=== PATIENT | male | born 1960 | race Caucasian/White ===

== ENCOUNTER 2022-01-12 12:48 | Day surgery (SDC) | payer OTHER, SELFPAY ==
[2022-01-12] VITALS (17 sets, daily range): BP systolic 111–144; BP diastolic 78–97; PULSE 70–88; RESP 16–18; TEMP 36.4–37.2; O2SAT 94–100; BMI 28.8
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
--- NOTE | 2022-01-12 13:31 | CRLHL7_ITS ---
For Patients: As a result of the Century Cures Act, medical imaging exams and procedure reports are released immediately into your electronic medical record. You may view this report before your referring provider. If you have questions, please contact your health care provider. INDICATION: Neck pain TECHNIQUE: CT cervical spine without contrast. COMPARISON: None FINDINGS: Vertebrae: Alignment is normal. There are no fractures or suspicious bony lesions. Discs and facet joints: Minimal discogenic spurring within the cervical spine. Degenerative facet arthropathy on the right at C3-4. Extraspinal findings: Right apical pulmonary nodule may be present measuring 5 millimeters. No apical pneumothorax. Secretions are present within the posterior oropharynx. Asymmetric fullness of the right palatine tonsil with mass effect upon the airway which is not narrowed. The right tonsil measures 2.4 x 2.8 cm. The fossa of Rosenmuller is maintained, however. No evidence of epiglottitis. Upper limits of normal cervical lymph nodes are present bilaterally. IMPRESSION: No cervical spine fracture. Possible 5 millimeter right apical nodule. Asymmetric fullness of the right palatine tonsil with tonsillar enlargement, indeterminate. Please note that all CT scans at this facility use dose modulation, iterative reconstruction, and/or weight-based dosing when appropriate to reduce radiation dose to as low as reasonably achievable. Dictated by Ta Henderson MD @ 01/12/2022 2:54:21 PM (Electronically Signed)
--- NOTE | 2022-01-12 13:31 | CRLHL7_ITS ---
For Patients: As a result of the Century Cures Act, medical imaging exams and procedure reports are released immediately into your electronic medical record. You may view this report before your referring provider. If you have questions, please contact your health care provider. INDICATION: THROAT PAIN R/O ABCESS Indication: Throat pain. Evaluate for abscess. Technique: CT of the neck. Coronal/sagittal reconstruction images. 98 cc of Isovue 370 IV. Comparison: None. Findings: There is no abnormal contrast enhancement within the posterior fossa or included supratentorial brain. Vessels of the [place] and dural venous sinuses enhance normally. There is enlargement of the right tonsil, with a suspected peritonsillar abscess on the right, image 31, series 3. This demonstrates peripheral rim enhancement, and measures 1.6 x 2.4 cm. There is mild effacement and fat stranding in the right parapharyngeal fat. There is deviation of the nasopharynx to the contralateral side. ENT consultation is advised. Mild edema/soft tissue thickening of the danger space. The epiglottis appears normal, image 28, series 5. The parotid space, carotid space, infratemporal fossa, suede cleaner space, and perivertebral space are within normal limits. Evaluation of the lung apices demonstrates no acute airspace disease. 7 millimeter pulmonary nodule at the right lung apex on image 72, series 3, which may be followed per Fleischner society guidelines. No endobronchial mass or peripheral reticulation. No honeycomb. Nonenlarged axillary lymph nodes. Superior mediastinum is normal. No thyroid mass. No thickening of the platysma muscle. No findings for sialoadenitis. The floor of the mouth appears intact. The bone windows demonstrate no suspicious bone lesions. There is no mastoid effusion. Paranasal sinuses are normal, with the exception of minimal mucosal thickening in the maxillary antra. No retrobulbar hematoma or mass. Impression: 1. Imaging findings are consistent with a right peritonsillar abscess, with mild mass effect/fat stranding in the right parapharyngeal fat. 2. ENT consultation is suggested. 3. 7 millimeter pulmonary nodule in the right upper lobe, apical segment. Follow-up is suggested per Fleischner society guidelines. 4. Superior mediastinum is within normal limits. 5. Report called to Dr. Barton, MINE, 01/12/22, 1521 hours. Dictated by Agusto Acharya MD @ 01/12/2022 3:23:17 PM Please note that all CT scans at this facility use dose modulation, iterative reconstruction, and/or weight-based dosing when appropriate to reduce radiation dose to as low as reasonably achievable. Dictated by: Agusto Acharya MD @ 01/12/2022 15:23:41 (Electronically Signed)
[2022-01-12 13:52] LABS: Basophils Absolute Auto 0.03 K/uL (0.00-0.30); Basophils Percent Auto 0.3 % (0.0-3.0); Eosinophils Absolute Auto 0.05 K/uL (0.00-0.50); Eosinophils Percent Auto 0.5 % (0.0-7.0); Hematocrit 44.6 % (37.0-53.0); Hemoglobin* 14.8 gm/dL (13.5-17.5); Immature Granulocytes Abs Auto 0.01 K/uL (0.00-0.30); Lymphocytes Percent Auto 13.4 % (20-44); Mean Corpuscular HGB Conc 33 gm/dL (32-36); Mean Corpuscular Hemoglobin 31 pg (26-34); Mean Corpuscular Volume 95 fL (80-100); Monocytes Percent Auto 12.3 % (0.0-11.0); Neutrophils Percent Auto 73.4 % (42.0-72.0); Platelet Count* 270 K/uL (140-440); Red Blood Count 4.72 m/uL (4.30-5.90)
[2022-01-12 14:01] LABS: Slide Review Reflex No
[2022-01-12 14:05] LABS: Albumin* 4.2 g/dL (3.3-5.0); Chloride* 100 mmol/L (96-114); Sodium* 136 mmol/L (135-149)
[2022-01-12 14:07] LABS: Creatinine* 0.8 mg/dL (0.5-1.5); Est. Creatinine Clearance* 78.07; Estimated Glomerular Filt Rate 99 ml/min
[2022-01-12 14:08] LABS: Alanine Aminotransferase* 24 U/L (4-50); Alkaline Phosphatase* 85 U/L (40-150); Aspartate Amino Transferase* 28 U/L (12-35); Blood Urea Nitrogen* 12 mg/dL (7-30); Carbon Dioxide* 28 mmol/L (20-32); Glucose* 116 mg/dL (60-115); Total Protein* 7.3 g/dL (6.0-8.3)
[2022-01-12] MEDS: 0.9 % SODIUM CHLORIDE 1000 ml 1,000 ML IV (14:08)
[2022-01-12] MEDS: ERTAPENEM 1 GM in 0.9 % SODIUM CHLORIDE Mini-bag 100 ML IVPB (14:08)
[2022-01-12 14:09] LABS: Calcium* 8.9 mg/dL (8.4-10.6)
[2022-01-12] MEDS: ONDANSETRON 2 MG/ML inj 4 MG IVP (14:09)
[2022-01-12] MEDS: MORPHINE 4 MG/ML INJ IVP (14:09)
[2022-01-12 14:11] LABS: C Reactive Protein* 5.6 mg/dL (0.5-1.0)
--- OUTSIDE RECORDS SUMMARY | 2022-01-12 14:22 | XMS_ITS | Clinical Summary ---
:1960 Author Organization [facility] [place] [address] Care Team Providers Name Role Phone Stoney Jo MD Primary Care Provider [phone] Allergies Active Allergy Reactions Severity Noted Date Comments Bee Venom Protein (Honey Anaphylaxis High 06/04/2015 Bee) Penicillins Edema 07/26/2013 Swelling of lip s and tongue Cerner Listed r eactions Medications Medication Sig Dispensed Refills Start Date End Date Status losartan (COZAAR) 50 mg Take 50 mg by 0 09/30/2021 Active tablet mouth once daily. Electrical Bone Growth For home use. For 0 Active StimulatorIndications: use after S/P lumbar fusion surgery. Active Problems Problem Noted Date Right kidney stone 06/17/2020 Paroxysmal atrial fibrillation Encounters Date Type Specialty Care Team Description 10/17/2021 Office Visit Benny Dalton, Consult (Lumbar pain ) 10/17/2021 Travel from Last 3 Months Family History Medical History Relation Name Comments Hypertension Brother Lung cancer Brother Hypertension Father Diabetes Sister Relation Name Status Comments Brother Father Sister Social History Tobacco Use Types Packs/Day Years Used Date Never Smoker Smokeless Tobacco: Never Used Alcohol Use Standard Drinks/Week Comments Yes 0 (1 standard drink = 0.6 oz pure alcoho l) few beers per week Alcohol Habits Answer Date Recorded How often do you have a drink containing alcohol? Not asked How many drinks containing alcohol do you have on a Not aske d typical day when you are drinking? How often do you have six or more drinks on one Not asked occasion? Comment: few beers per week 01/12/2020 Sex Assigned at Date Recorded Not on file Obstetrics History Last Filed Vital Signs Vital Sign Reading Time Taken Comments Blood Pressure 150/85 06/18/2020 8:37 AM JOY OPERATOR HELPER Pulse 69 06/18/2020 8:37 AM JOY OPERATOR HELPER Temperature 36.4 ??C (97.5 ??F) 06/18/2020 8:37 AM JOY OPERATOR HELPER Respiratory Rate 16 06/18/2020 8:37 AM JOY OPERATOR HELPER Oxygen Saturation 99% 06/18/2020 8:37 AM JOY OPERATOR HELPER Inhaled Oxygen Concentration - - Weight 93 kg (205 lb) 10/17/2021 9:21 AM CDT Height 175.3 cm (5' 9) 10/17/2021 9:21 AM CDT Body Mass Index 30.27 10/17/2021 9:21 AM CDT Plan of Treatment Upcoming Encounters Date Type Specialty Care Team Description 01/17/2022 Office Visit Sylvester Newell MD [address] [facility] [address] [place], [place] [id number] (Wo rk) Health Maintenance Due Date Last Done Comments Tdap 1969 Depression screening for age 12+ 1970 Hepatitis C screening for age 0306/26/1976 18-79 Tetanus booster 1978 Colonoscopy through age 75 06/27/2003 Lipids for age 45-75 06/27/2003 Zoster (shingles) series for age 0306/26/2008 50+ (1 of 2) COVID-19 vaccine series (3 - 12/27/2020 07/27/2020, 021 Booster for Moderna series) Influenza for age 50-64 12/12/2021 BMI (ht and wt on same day) for 10/17/2022 10/17/2021, 07/0 04/2021, age 18+ 08/16/2021, Additional history exists Results Not on filefrom Last 3 Months Insurance Payer Benefit Plan / Subscriber ID Effective Dates Phone Addre ss Type Group MEDICA MEDICA APPLAUSE [id number] 2020-Present [address] [address] [place] [phone] (Home) [place] [id number] [place] [facility]/Steven Self [phone] [id number] (Home) [place] [id number] Advance Directives Latest Code Status on File Code Status Date Activated Date Inactivated Comments Full Code 06/17/2020 8:23 PM 06/18/2020 12:49 PM Code Status Discussion: Discussed Per Existing Order Full Code 01/12/2020 11:42 AM 01/13/2020 12:03 PM Discussed when consent for ablation obtained Code Status Discussion: Not Discussed Care Teams Capping Machine Operator Relationship Specialty Start Date End Date Stoney Jo MD PCP - General Family Practice 01/03/[address] [place] [address]
--- NOTE | 2022-01-12 15:52 | CRLHL7_ITS ---
For Patients: As a result of the Cures Act, medical imaging exams and procedure reports are released immediately into your electronic medical record. You may view this report before your referring provider. If you have questions, please contact your health care provider. INDICATION: Sore throat, peritonsillar abscess TECHNIQUE: Chest 1 view. COMPARISON: Chest x-ray 07/12/2019 FINDINGS: The heart is stable in size. The pulmonary vasculature is within normal limits. Lungs are clear. IMPRESSION: No acute process. Dictated by Deepti Mathew MD @ 01/12/2022 4:42:22 PM Dictated by: Deepti Mathew MD @ 01/12/2022 16:42:33 (Electronically Signed)
[2022-01-12] MEDS: HYDROmorphone 0.5 mg/0.5 ml inj IVP (16:24)
[2022-01-12 16:34] LABS: SARS PCR* Negative SARS-CoV-2 (Negative)
[2022-01-12] MEDS: LACTATED RINGERS 1000 ML 1,000 ML 100 ML IV (16:43)
--- NOTE | 2022-01-12 17:04 | W.PM.ENTCN ---
HPI- ENT Consult Date of Consult Time Seen by Provider: 16:25 Date Seen: 01/12/22 Patient: [facility] Patient Consult date: 01/12/22 Requesting Physician: Other Primary Care Provider: Not a Local Provider Consult Narrative Reason for consult: Right peritonsillar abscess Narrative: Virgilio Jackson is a 61 year old male 5 day history of sore throat. Develops markedly increase in pain overnight. No significant trismus. Does have odynophagia. No airway difficulty Review of Systems Narrative: For general skin neuro respiratory peripheral vascular pulmonary cardiac within normal limits PFSH PFS Medical History (Updated 01/12/22 @ 17:06 by Alfredo Castillo MD) Peritonsillar abscess Social History Smoking Status: Never smoker How often do you have a drink containing alcohol: monthly or less How often do you have six or more drinks on one occasion: Never AUDIT-C Alcohol total score: 1 Non-prescribed substance use: denies use Meds Home Medications and Allergies Home Medications Medication Instructions Recorded Confirmed Type epinephrine 0.3 mg/0.3 mL 0.3 mg IM PRN 01/12/22 01/12/22 History injection, auto-injector losartan 50 mg tablet 50 mg PO DAILY 01/12/22 01/12/22 History naproxen sodium 220 mg capsule 220 mg PO BID PRN 01/12/22 01/12/22 History (Aleve) Allergies Allergy/AdvReac Type Severity Reaction Status Date / Time bee venom protein (honey bee) Allergy Severe Anaphylaxis Verified 01/12/22 13:14 Penicillins Allergy Severe Anaphylaxis Verified 01/12/22 13:13 Exam Narrative: Exam Narrative: General skin neuro respiratory gait peripheral vascular vocal quality skin of the neck are negative he has no trismus. Significant bulge right tonsil with uvular cellulitis. Uvula is approximately 4 times normal size. Hypopharynx and larynx are easily visualized. Const: Vital Signs, click to edit/add: Vital Signs - 24 hr 01/12/22 13:11 01/12/22 16:08 Temperature 97.6 F 98.3 F Pulse Rate [Pulse Oximeter] 81 76 Respiratory Rate 18 16 Blood Pressure [Ri ght Upper Arm] 126/78 143/86 H Pulse Oximetry 98 94 Oxygen Delivery Me thod Room Air Room Air ENT-CN: Result Labs Labs: Short CBC 10/02/22 Range/Units 13:44 WBC 9.20 (4.50-11.00) K/uL Hgb 14.8 (13.5-17.5) gm/dL Hct 44.6 (37.0-53.0) % Plt Count 270 (140-440) K/uL BMP 01/12/22 13:44 Sodium 136 Potassium 4.0 Chloride 100 Carbon Dioxide 28 BUN 12 Creatinine 0.8 Glucose 116 H Calcium 8.9 Liver Function 01/12/22 Range/Units 13:44 Total Bilirubin 1.0 (0.1-1.5) mg/dL AST 28 (12-35) U/L ALT 24 (4-50) U/L Alkaline Phosphatase 85 (40-150) U/L Albumin 4.2 (3.3-5.0) g/dL Assessment and Plan Assessment and plan (1) Peritonsillar abscess: Status: Acute Plan Right intra tonsillar versus peritonsillar abscess. This is not clear from the scan. The arm hypopharynx shows early edema but no obstruction of the airway. He is somewhat tender on the lateral neck. Discussed options with imaging given the hypopharyngeal edema I would favor going the operating room for drainage. Risks including anesthesia bleeding recurrence failure to achieve desired results injury to adjacent structures etc. were all reviewed. He understands and informed consent was obtained and permit was signed.
--- NOTE | 2022-01-12 17:07 | W.PM.ENTPROC ---
Procedure Note Date of procedure: 01/12/22 Procedure: Preoperative diagnosis right peritonsillar abscess versus right intra tonsillar abscess, hypopharyngeal edema, uvular cellulitis Postoperative diagnosis abscess appeared to be intra tonsillar and all of above Procedure incision and drainage right intra tonsillar abscess with exploration of the right peritonsillar space an amputation of the lower quarter of the uvula to facilitate drainage Under general endotracheal anesthesia which was achieved without difficulty the patient was prepped and draped in usual fashion. The McIvor mouth gag was inserted the tongue retracted forward. The needlepoint cautery was used to make an incision over the most edematous part portion of the soft palate. Dissection was carried down to the peritonsillar space and no abscess was encountered. I then drained into the tonsil from behind and was able to express about 5 mL of purulent drainage. This cavity was then irrigated copiously. I placed pressure to the hypopharyngeal some edema and no further purulence was noted. The cavity was irrigated again. Bleeding was controlled with Coblation. The uvula is markedly hypertrophic slight amputated the lower quarter to facilitate decreased edema. The patient procedure well was taken recovery in satisfactory condition. Blood loss during procedure was less than 25 mL Surgeon: Alfredo Castillo MD
--- NOTE | 2022-01-12 17:22 | W.ANESCHARGE ---
Anesthesia Charges Start Date/Time Anesthesia Start Date: 01/12/22 Anesthesia Start Time: 16:43 Stop Date/Time Anesthesia Stop Date: 01/12/22 Anesthesia Stop Time: 17:15 Summary Emergency: Yes
--- NOTE | 2022-01-12 21:57 | PC.NURSE ---
DC note: Pt tolerates PO fluids and ice chips with no c/o nausea, pain 0-1/10, no drainage noticed by patient. He is up independently to the bathroom, is voiding, denies lightheadedness or dizziness,ice to operating site. Pt DC home with spouse at 2150, ambulatory
== END 2022-01-12 21:50 | disposition home or self-care (01) ==
LOC: ED 16:09 → SS 16:22 → MEDSURG 20:46
PROVIDERS: Emergency Provider Family Medicine; Visit Provider Otolaryngology
PROC: 0C9PXZZ Drainage of Tonsils, External Approach (ICD-10-PCS; CPT 42700; principal; 2022-01-12 16:15)
DX: J36 Peritonsillar abscess (principal); K13.79 Other lesions of oral mucosa; I10 Essential (primary) hypertension; M54.50 Low back pain, unspecified
CPT/HCPCS: 42700; 42140; 00170; 36415; 70491; 71045; 72125; 80053; 85025; 86140; 87040; 87077; 87186; 87205; 87635; 93005; 99140; 99285; 99291; J0330; J1100; J1170; J1335; J2250; J2270; J2405; J2704; J3010; J7030; J7120; Q9967

== ENCOUNTER 2022-12-17 07:14 | Day surgery (SDC) | payer OTHER, SELFPAY ==
[2022-12-17] VITALS (14 sets, daily range): BP systolic 113–144; BP diastolic 73–107; PULSE 61–827; RESP 14–161; TEMP 36.4–36.9; O2SAT 93–98; BMI 31.4
--- OUTSIDE RECORDS SUMMARY | 2022-12-17 07:19 | XMS_ITS | Continuity of Care Document ---
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 Please contact the source practice for further details. Medications Medication Instructions Dosage Effective Dates (start - stop) Status Comments losartan 50 mg tablet take 1 tablet by oral route every day 50 MG - Active PROBIOTIC (unknown strength) take 1 capsule by oral route every day Not Available - Active Centrum Silver Men 300 mcg-600 mcg-300 mcg tablet - Active Aleve 220 mg tablet take 2 tablet by oral route daily - Active EpiPen 0.3 mg/0.3 mL (1:1,000) IM Injector as needed for bee stings - Active Procedures Procedure Date Colonoscopy Flex; W/bx 1/mx Level Iv-surg Path Gross/micro Offic/outpt E&m New Mod-hi Colorectal Ca Screen Hi Risk I 07 Advance Directives Directive Yes / No Effective Date File Name No Information Encounters Encounter Description Practice Location Reason(s) For Visit Diagnoses Date Provider Providers Copied on Encounter [facility], [address] [address], [place], [id number], [place] tel:[phone] [facility] No Information 2 Tonio Durand. [address], [place], [id number] , [place]. tel: [phone] [facility], [address] [address], [place], [id number], [place] tel:[phone] [facility] GI Symptoms or Concerns (chief complaint) Noninfective gastroenteritis and colitis, unspecifiedAbdom inal distension (gaseous)Diarrhe a, unspecifiedDiarr hea, unspecifiedAbdom inal distension (gaseous) 2 Rigo Roman. [address], [facility] [address], [place], [id number] , [place]. tel: [phone] Rob Gordon MD. tel:[phone] erring Provider: Referral Self. Offic/outpt E&m New Mod-hi [facility], [address] [address], [place], [id number], [place] tel:[phone] [facility] GI Symptoms or Concerns (chief complaint) Chronic diarrheaBloating 2 Rigo Roman. [address], [facility] [address], [facility] [place], [place], [address] , [place]. tel: [phone] Rob Gordon MD. tel:[phone] erring Provider: Referral Self. [facility], [address] [address], [place], [id number], [place] tel:[phone] [facility] No Information 2 Paola Rangel. [address], [place], [place], [id number] , [place]. tel: [phone] [facility], [address] [address], [place], [place], [id number], [place] tel:[phone] [facility] Colon Cancer ScreeningFamily Hx GI Tract Cancer 7 Tram Chappell. [address], [address], [place], [place], [id number] , . [phone] Referring Provider: Ta Leroy MD I, [address] [facility] [address], [place], [address] . tel:[phone] Family History Family Member Type Diagnosis Age At Onset Mother Problem (finding) Pancreatitis Brother Problem (finding) Colon polyps Brother Problem (finding) Cancer, bladder Brother Problem (finding) malignant tumor of rect um Immunizations Vaccine Date Status Comments SARS-COV-2 (COVID-19) vaccin e, mRNA, spike protein, LNP, preservative free, 100 mcg/0.5mL dose or 50 mcg/0.25mL dose administered Note: [facility] bi -directional interface ; Source: Other Registry SARS-COV-2 (COVID-19) vaccin e, mRNA, spike protein, LNP, preservative free, 100 mcg or 50 mcg dose administered Note: [facility] bi-direct ional interface ; Source: Other Registry SARS-COV-2 (COVID-19) vaccin e, mRNA, spike protein, LNP, preservative free, 100 mcg/0.5mL dose or 50 mcg/0.25mL dose administered Note: [facility] bi -directional interface ; Source: Other Registry SARS-COV-2 (COVID-19) vaccin e, mRNA, spike protein, LNP, preservative free, 100 mcg or 50 mcg dose administered Note: [facility] bi-direct ional interface ; Source: Other Registry SARS-COV-2 (COVID-19) vaccin e, mRNA, spike protein, LNP, preservative free, 100 mcg/0.5mL dose or 50 mcg/0.25mL dose administered Note: [facility] bi -directional interface ; Source: Other Registry SARS-COV-2 (COVID-19) vaccin e, mRNA, spike protein, LNP, preservative free, 100 mcg or 50 mcg dose administered Note: [facility] bi-direct ional interface ; Source: Other Registry tetanus toxoid, reduced diphtheria toxoid, and acellular pertussis vaccine, adsorbed administered Note: [facility] b i-directional interface ; Source: Other Registry Afluria Qd administered Note: [facility] bi-directional interface ; Source: Other Registry tetanus toxoid, reduced diphtheria toxoid, and acellular pertussis vaccine, adsorbed administered Note: [facility] b i-directional interface ; Source: Other Registry Payers Payer name Insurance type Covered alliance party ID Authorregina quiles(s) Jakob WANB CI [id number] Social History Type Description Quantity Date Captured Comments Sex Male Smoking Status No Information Chief Complaint And Reason For Visit No Information Reason For Referral Reason For Referral No Information Plan Of Treatment Date Type Action Status Referral Ordered: Colonoscopy Appointment date/timeframe: 09/12/2021 ordered History Of Present Illness Encounter Date Complaint History Of Prese nt Illness GI Symptoms or Concerns GI Symptoms or Concerns 60-year- old man with history of chronic back pain parentheses takes 2 pills of Aleve daily for many years ), who presents for about 2 years of bloating and diarrhea. He describes anywhere between 4-10 loose bowel movements per day. Recently diarrhea has been better parentheses about 4 bowel movements daily, usually in the morning). He denies blood in his stool or black stool. He has abdominal bloating and discomfort generally, which is better after bowel movements. About a year ago in June [address] scan that showed fluid-filled loops of small bowel, which was mild and nonspecific, but differential stated as possible developing ileus or bowel obstruction versus enteritis. It was thought perhaps that he had adhesions from a distant history of appendectomy. Stool PCR in was for infection. Labs on 06/29/2020 included CBC, CRP, lipase, BMP, all of which were normal. Last colonoscopy is stated as being 5 years ago in primary care note. He report Functional Status Date Functional Assessmen t No Information Instructions Date Instruction Additional Infor rachel Colon Cancer Prevention Related to Abdominal distension (gaseous) 1. Chronic diarrhea and bloating. - schedule colonoscopy with TI intubation and random colon biopsies. - if colonoscopy is unrevealing, consider testing for celiac disease and possibly treating for irritable bowel syndrome. - we will schedule follow-up visit in 2-3 months, but this can be cancelled if no longer needed depending on results of colonoscopy. Related to Chronic diarrhea Assessments Type Assessment Date No Information Patient Care Teams Name Effective Dates (start - stop) Status Members No Information
--- OUTSIDE RECORDS SUMMARY | 2022-12-17 07:19 | XMS_ITS | Continuity of Care Document ---
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 Role Phone Payam Sung MD Unavailable Unavailab le Allergies, Adverse Reactions, Alerts Substance Reaction Status Criticality Penicillins Active No Information Medications Medication Instructions Dosage Effective Dates (start - stop) Status Comments ALEVE (unknown strength) Not Available - Active Procedures Procedure Date Office/Outpatient Visit,[facility] 2014 X-Ray Exam Of Lower Spine, Bending Advance Directives Directive Yes / No Effective Date File Name No Information Encounters Encounter Description Practice Location Reason(s) For Visit Diagnoses Date Provider Providers Copied on Encounter [facility], [address], [place], [place], [id number] , [place] tel: [phone] [facility] No Information 6 Ana Lilia sommers [facility], [address] [place] [address], [address], [place], [place], [id number] , [place]. tel: [phone] Office/Outpa tient Visit,[facility], [facility], [address], [place], [place], [id number] , [place] tel: [phone] [facility] OverweightEssentia l (primary) hypertensionSpinal stenosis of lumbosacral regionSpondylolist hesis of lumbar region 5 Ana Lilia Miranda er. [facility], [address] [place] [address], [address], [place], [place], [address] , [place]. tel: [phone] Referring Provider: Agusto Simpson, [facility] [address], [place], [address]. tel:[phone] Family History Family Member Type Diagnosis Age At Onset No Information Payers Payer name Insurance type Covered democrat ID Vinay quiles(s) [id number] [facility] [id number] Social History Type Description Quantity Date Captured Comments Alcohol Use Details Unknown Caffeine Use Details Unknown Tobacco Use Status No Information Smoking Status No Information Sex Male Chief Complaint And Reason For Visit No Information Reason For Referral Reason For Referral No Information Plan Of Treatment Date Type Action Status Future Order: Radiology Order F/ E Lumbar (F/ELumb), Ordered on: Ordered History Of Present Illness Encounter Date Complaint History Of Prese nt Illness No Information Functional Status Date Functional Assessmen t No Information Instructions Date Instruction Additional Infor mation Weight Management Related to Ove rweight Weight management: R efer to Referral to General Practitioner timeframe: 1 Month. Related to Overweight Exercise education Related to Un specified Essential Hypertension Refer to Referral to General Practitioner timeframe: 1 Month. Related to Unspecified Essential Hypertension Assessments Type Assessment Date No Information Patient Care Teams Name Effective Dates (start - stop) Status Members No Information
[2022-12-17] MEDS: LACTATED RINGERS 1000 ML 1,000 ML 100 ML IV ×2 (08:05→11:00)
--- NOTE | 2022-12-17 08:05 | SUR.PREOP ---
TIME?OUT:?1000 PT/RN/MDA?VERIFICATION?OF?SURGICAL?SITE,?PROCEDURE,?AND?CONSENT OBTAINED?PRIOR?TO?INVASIVE?PROCEDURE.
[2022-12-17] MEDS: fentaNYL 100 MCG/2 ML inj IVP (08:35)
[2022-12-17] MEDS: MIDAZOLAM HCL 1 MG/ML inj IVP (08:35)
--- NOTE | 2022-12-17 08:47 | W.PM.NB ---
Nerve Block Nerve Block Time Seen by Provider: 08:40 Date Seen: 12/17/22 Type of block requested by surgeon for post-operative analgesia: supraclavicular Side: left Time out performed: Yes Verification of patient name: Yes Verification of date of : Yes Site marking: site marked Name of person performing procedure: Christiano Continuous monitoring Was continuous monitoring of O2 sat, B/P, cafeteria monitor, recorded every 15 minutes?: Yes Procedure Checklist: sterile prep, needles and gloves Ultrasound guided. Images saved: Yes Medications given in 5ml increments after negative aspiration: Ropivicaine %: 0.5 mL: 20 Needle gauge: 22 Decadron (mg): 10 Precedex (mcg): 25 Patient tolerated procedure well: Yes Block Charges Block Charge (with Pro Fee): Brachial Plexus Use of Ultrasound Machine for Block: Yes- US Guidance/pain block
--- NOTE | 2022-12-17 08:48 | W.ANESCHARGE ---
Anesthesia Charges Start Date/Time Anesthesia Start Date: 12/17/22 Anesthesia Start Time: 08:59 Stop Date/Time Anesthesia Stop Date: 12/17/22 Anesthesia Stop Time: 11:41
--- NOTE | 2022-12-17 08:51 | SUR.PREOP ---
TIME?OUT:?0830 PT/RN/MDA?VERIFICATION?OF?SURGICAL?SITE,?PROCEDURE,?AND?CONSENT OBTAINED?PRIOR?TO?INVASIVE?PROCEDURE.
[2022-12-17] MEDS: CEFAZOLIN 2 GM in 0.9 % SODIUM CHLORIDE Mini-bag 100 ML IVPB (09:05)
[2022-12-17] MEDS: EPINEPHrine 1 MG in SODIUM CHLORIDE IRRIG SOLUTION 3,000 ML 3001 MG IRRIGATION ×6 (09:45→11:22)
--- NOTE | 2022-12-17 11:38 | W.ANESCHARGE ---
Anesthesia Charges Start Date/Time Anesthesia Start Date: 12/17/22 Anesthesia Start Time: 08:59 Stop Date/Time Anesthesia Stop Date: 12/17/22 Anesthesia Stop Time: 11:41
--- NOTE | 2022-12-17 13:02 | SUR.PHASEII ---
Patient has complained of soreness under his left armpit. It is very red and almost looks like a diaper rash... I cleaned under his armpit with warm water to clean off any Chloraprep that may have caused the problem. I dried it well and ABD applied. stated she has A&D ointment that she could apply while doing ROM later today. Assured them we would call tomorrow to see how he was doing.
--- NOTE | 2022-12-17 13:09 | PM.ORPRC ---
Procedure Note Date of procedure: 12/17/22 Procedure: PREOPERATIVE DIAGNOSES: 1. Left shoulder rotator cuff tear -full thickness supraspinatus, upper border subscapularis, and anterior portion infraspinatus 2. Left shoulder AC degenerative joint disease, primary, moderate -severe 3. Left shoulder degenerative labral fraying tearing 4. Left shoulder subacromial impingement syndrome. POSTOPERATIVE DIAGNOSES: 1. Left shoulder rotator cuff tear -full thickness supraspinatus, upper border subscapularis, and anterior portion infraspinatus 2. Left shoulder AC degenerative joint disease, primary, moderate -severe 3. Left shoulder degenerative labral fraying tearing 4. Left shoulder subacromial impingement syndrome. NAME OF OPERATION: 1. Left shoulder arthroscopic rotator cuff repair - Large tear including entire supraspinatus, anterior infraspinatus, and upper subscapularis 2. Left shoulder arthroscopic distal clavicle excision 3. Left shoulder arthroscopic limited glenohumeral debridement 4. Left shoulder arthroscopic bursectomy, subacromial decompression/partial acromioplasty. SURGEON: Herbert Melendez MD HYDRAULIC TESTER: Jason Bowie. Of note, a skilled assistant food service director was critical for this case to aide in patient positioning, suture manipulation, arm positioning, instrument positioning, and closure. ANESTHESIA: General plus preoperative supraclavicular block. EBL: 25 mL IMPLANTS: Arthrex 4.75 mm BioComposite SwiveLock suture anchor ( x1-subscap); 2.6 mm FiberTak RC ( x1); 5.5 mm BioComposite corkscrew suture anchor ( x1); 5.5 mm BioComposite SwiveLock suture anchor ( x3). COMPLICATIONS: None evident INDICATIONS: The patient is a pleasant, 62-year old male who has experienced left shoulder pain that has been increasing in recent time. Physical exam and imaging were consistent with a rotator cuff tear. Given their findings, as well as the weakness and pain, and inadequate response to nonoperative management, recommendation was made for surgery. FINDINGS: Exam under anesthesia revealed stable shoulder with excellent range of motion. The diagnostic arthroscopy revealed full-thickness supraspinatus rotator cuff tear, upper border subscapularis tear, and anterior portion infraspinatus tear with retraction to the medial humeral head and delaminated tissue warranting marginal convergence of the delaminated portion separate from the remaining rotator. The Subscapularis tendon was torn from its upper border as noted. The long head of the biceps tendon was intact. The labrum was degeneratively frayed in the anterior and superior aspects. No loose bodies were identified within the pouch or subscapularis recess. PROCEDURE: Following a thorough discussion of risks, benefits, and alternatives, consent was obtained and the left shoulder was marked. The patient was brought to the operating room and placed supine on the operating table. Induction of anesthesia was completed after preoperative supraclavicular block was administered in preop holding. Appropriate time out was performed identifying proper patient, site, and procedure. 2 g IV Ancef was administered within 1 hour of incision preoperatively. The left upper extremity was prepped and draped in the appropriate sterile fashion using ChloraPrep prep. This was after the patient was positioned in the beach chair with their head in neutral alignment and all bony prominences well padded. The shoulder was insufflated with 20mL of normal saline via an 18g spinal needle from a posterior approach. An 11 blade skin incision allowed a blunt trochar to be inserted and diagnostic arthroscopy to be performed with the findings as noted above. An anterior portal was established with an outside in technique. This allowed the probe to be inserted and confirm the diagnostic arthroscopic findings. The shaver was then inserted and allowed debridement of the anterior and superior labrum. Following this, the upper border subscapularis was repaired after debriding the lesser tuberosity with the shaver and [place] cautery. Subscapularis was captured in horizontal mattress fashion with a fiber tape suture. The tails were brought to a single anchor in the lesser tuberosity with excellent reapproximation of the subscap tendon and good excursion/tension. Thereafter, the subacromial space was entered. Here, a complete bursectomy and partial acromioplasty/subacromial decompression was performed with a combination of radiofrequency ablator, the shaver, and a 5.5 mm bur. Additionally, distal clavicle excision was performed with the bur. 8 mm of distal clavicle was resected based on the width of our bur. Further inspection of the supraspinatus and infraspinatus rotator cuff was performed. This identified the tear as noted above. The margins of the tear were debrided, and the greater tuberosity was debrided with a combination of the apollo cautery, shaver, and bur on reverse setting. After gentle decortication, a speed bridge configuration with a medial kaylee was engaged. 2 medial anchors were placed and the sutures were passed with a fiber link. The eyelet suture tails were then retrieved and tied and cinched down for the medial kaylee purpose. of note, the anterior medial anchor did pull out 1 tensioning the medial kaylee. This required us to cut the sutures as the lateral head artery and placed and secured. We were still able to maintain the posterior medial anchor and 2 lateral anchors and therefore half of the rotator cuff repair was still intact. However, we did after remove the anteromedial anchor which was a 2.6 mm FiberTak RC. then, this was replaced with a 5.5 mm BioComposite corkscrew suture anchor. The tails were passed independently and tied. The tails then brought to it separate lateral row anchor along with 1 marginal convergence sutures to again create a broad footprint against the greater tuberosity. Excellent reapproximation of the tissue to the greater tuberosity was achieved with broad footprint compression. Prior to anchor m48/m60 tank driver removal, the eyelet sutures were tugged on for each anchor and found that the anchor had excellent stability within the bone. The shoulder was placed through range of motion and found to be stable. The rotator cuff was re-probed and found to be stable. Instruments were removed. Excess fluid was drained, closure performed with 4-0 Monocryl and Steri-Strips. Dressings were applied. Sling was applied. The patient was awoken from anesthesia and transferred to the PACU in stable condition. A skilled assistant food service director was critical for this case to aid in patient positioning, limb positioning, skill to manipulate arthroscopic instruments and camera, suture management, patient safety, and closure. PLAN: 1. Elbow, forearm, wrist and digit range of motion of operative extremity as tolerated. 2. Encouraged ice. 3. Oxycodone for pain as needed. 4. Sling at all times except for ROM and showering. 5. Follow up with PA visit in 1-2 weeks for wound check. Initiate physical therapy following that visit for passive range of motion. Initiate active assisted range of motion at 6 weeks due to the large tear size. May do pendulums now.
--- NOTE | 2022-12-17 13:15 | W.PM.H&PU ---
History & Physical Update History & Physical Update H&P Reviewed and patient assessed: No changes noted
== END 2022-12-17 13:17 | disposition home or self-care (01) ==
PROVIDERS: PCP Family Medicine; Visit Provider Orthopaedic Surgery Sports Medicine
PROC: (CPT 29805; principal; 2022-12-17 09:15)
DX: M75.122 Complete rotator cuff tear or rupture of left shoulder, not specified as traumatic (principal); M19.012 Primary osteoarthritis, left shoulder; S43.432A Superior glenoid labrum lesion of left shoulder, initial encounter; M75.42 Impingement syndrome of left shoulder; G89.18 Other acute postprocedural pain
CPT/HCPCS: 29827; 29826; 29824; 29822; 01630; 64415; 76942; C1713; J0171; J0690; J1100; J2250; J2795; J3010; J7120; L3670

== ENCOUNTER 2023-01-15 11:06 | Outpatient (CLI) | payer OTHER, SELFPAY ==
--- OUTSIDE RECORDS SUMMARY | 2023-01-15 11:11 | XMS_ITS | Continuity of Care Document ---
Author Name Unknown Organization [facility] Address [address] [place] [address] Phone Care Team Providers Care Scenic Artist Name Role Phone Payam Sung MD Unavailable Unavailab le Allergies, Adverse Reactions, Alerts Substance Reaction Status Criticality Penicillins Active No Information Medications Medication Instructions Dosage Effective Dates (start - stop) Status Comments ALEVE (unknown strength) Not Available - Active Procedures Procedure Date Office/Outpatient [place] [facility] [place]am Of Lower Spine, Bending Advance Directives Directive Yes / No Effective Date File Name No Information Encounters Encounter Description Practice Location Reason(s) For Visit Diagnoses Date Provider Providers Copied on Encounter [facility], [address], [place], [place], [id number] , [place] tel: [phone] [facility] No Information 6 Ana Lilia sommers [facility], [address] [place] [address], [address], [place], [place], [id number] , [place]. tel: [phone] Office/Outpa [place]ient Visit,[facility], [facility], [address], [place], [place], [id number] , [place] tel: [phone] [facility] OverweightEssentia l (primary) hypertensionSpinal stenosis of lumbosacral regionSpondylolist hesis of lumbar region 5 Ana Lilia Miranda er. [facility], [address] [place] [address], [address], [place], [place], [id number] , [place]. tel: [phone] Referring Provider: Agusto Simpson, [facility] [address] [facility], [place], [address]. tel:[phone] Family History Family Member Type Diagnosis Age At Onset No Information Payers Payer name Insurance type Covered constitution party ID Vinay quiles(s) BCBS [id number] [facility] [id number] Social History Type Description Quantity Date Captured [...]
--- NOTE | 2023-01-15 11:15 | CRLHL7_ITS ---
For Patients: As a result of the Century Cures Act, medical imaging exams and procedure reports are released immediately into your electronic medical record. You may view this report before your referring provider. If you have questions, please contact your health care provider. Indication: Left hip pain Comparison: 01/08/2023 Procedure : Informed consent was obtained. The site was marked. Time-out was performed. The skin of the left hip was cleansed with ChloraPrep. A sterile drape was placed. 8 cc of 1 percent lidocaine was administered for superficial anesthesia. Subsequently a 22 gauge spinal needle was introduced into the left hip joint under intermittent fluoroscopic guidance. Injection of 7 cc 1 percent lidocaine and 2 cc 40 milligram per cc Depo-Medrol then performed. The needle was removed and hemostasis achieved with direct pressure. A dressing was placed. The patient tolerated the procedure well without immediate complication. Total fluoroscopy time 15 seconds. Impression: Successful fluoroscopically guided left hip with 80 milligrams of Depo-Medrol. Dictated by Ta Henderson MD @ 01/15/2023 12:02:01 PM (Electronically Signed)
== END 2023-01-15 11:07 | disposition home or self-care (01) ==
LOC: RAD 11:06
PROVIDERS: PCP Family Medicine; Visit Provider Orthopaedic Surgery Sports Medicine
DX: M16.12 Unilateral primary osteoarthritis, left hip (principal); M25.552 Pain in left hip
CPT/HCPCS: 20610; 77002; Q9966

== ENCOUNTER 2023-03-30 10:43 | Outpatient (CLI) | payer OTHER, SELFPAY ==
--- OUTSIDE RECORDS SUMMARY | 2023-03-30 10:48 | XMS_ITS | Continuity of Care Document ---
Author Name Unknown Organization [facility] Address [address] [place] [address] Phone Care Team Providers Care Global Head [employer] Name Role Phone Payam Sung MD Unavailable Unavailab le Allergies, Adverse Reactions, Alerts Substance Reaction Status Criticality Penicillins Active No Information Medications Medication Instructions Dosage Effective Dates (start - stop) Status Comments ALEVE (unknown strength) Not Available - Active Procedures Procedure Date Office/Outpatient Visit,[facility] [facility] [place]-Ray Exam Of Lower Spine, Bending Advance Directives Directive Yes / No Effective Date File Name No Information Encounters Encounter Description Practice Location Reason(s) For Visit Diagnoses Date Provider Providers Copied on Encounter [facility], [address], [place], [place], [id number] , [place] tel: [phone] [facility] No Information 6 Ana Lilia sommers [facility], [address] [place] [address], [address], [place], [place], [id number] , [place]. tel: [phone] Office/Outpa tient Visit,[facility], [facility], [address], [place], [place], [id number] , [place] tel: [phone] [facility] OverweightEssentia l (primary) hypertensionSpinal stenosis of lumbosacral regionSpondylolist hesis of lumbar region 5 Ana Lilia Miranda er. [facility], [address] [place] [address], [address], [place], [place], [id number] , [place]. tel:[phone] Referring Provider: Agusto Simpson, [facility] [address] [facility], [place], [address]. tel:[phone] Family History Family Member Type Diagnosis Age At Onset No Information Payers Payer name Insurance type Covered alliance party ID Vinay quiles(s) BCBS [id number] [facility] [id number] Social History Type Description Quantity Date Captured [...]
--- NOTE | 2023-03-30 11:00 | CRLHL7_ITS ---
For Patients: As a result of the Century Cures Act, medical imaging exams and procedure reports are released immediately into your electronic medical record. You may view this report before your referring provider. If you have questions, please contact your health care provider. INDICATION: Hip pain. Injection for pain relief. PROCEDURE: Informed consent was obtained. Benefits and risks were discussed. The patient agreed to proceed. A time-out was performed to verify correct patient and procedure. Utilizing sterile technique and 1% lidocaine for local anesthetic, a 22-gauge needle was advanced into the left hip joint under fluoroscopic guidance without difficulty. Approximately 5 cc of nonionic Omnipaque 240 was instilled demonstrating the needle tip within the joint space. Subsequently, a mixture of 2 cc methylprednisolone 40 mg/mL and 4 cc 1% Xylocaine were injected. No immediate complications. 1 minute fluoroscopy time. Preprocedure pain threshold: 6/10. Immediate postprocedure pain threshold: 1/10. IMPRESSION: Technically successful fluoroscopically guided left hip injection for pain relief. Dictated by Michael Bravo MD @ 03/30/2023 2:31:33 PM (Electronically Signed)
== END 2023-03-30 10:44 | disposition home or self-care (01) ==
LOC: RAD 10:44
PROVIDERS: PCP Family Medicine; Visit Provider Orthopaedic Surgery Sports Medicine
DX: M16.12 Unilateral primary osteoarthritis, left hip (principal)
CPT/HCPCS: 20610; 77002; J1030; Q9966

== ENCOUNTER 2023-07-29 08:57 | Outpatient (CLI) | payer MEDICARE, BC, SELFPAY ==
--- OUTSIDE RECORDS SUMMARY | 2023-07-29 09:07 | XMS_ITS | Encounter Summary ---
Author Name Unknown Organization [facility] Address [address] [place] [address] Care Team Providers Care Earth Science Teacher Name Role Phone Clinic, No Primary Primary Care Provider Unavail able Clinic, No Primary Unavailable Unavailable Reason for Visit * Reason Comments Follow up F/U CT RAYUS 05/06/23 - POST OP / Ant fusion L5-S1, HWR L3-5, PSF L4-S1 with instL3-PelvisDOS 10-20-2022 W/ SMS Encounter Details Date Type Department Care Team (Late st Contact Info) Description 05/07/2023 1:30 PM GROUND CREWMAN AIRCRAFT SUPPORT Office Visit [facility] (an affiliate of [facility]) [address] [place] [address] Julien Madera, AMIE [address] [place] [address] Lumbar radiculopathy (Primary Dx) Social History Tobacco Use Types Packs/Day Years Used Date Smoking Tobacco: Never Smokeless Tobacco: Never Tobacco Cessation:Counseling Given: Not Answered Alcohol Use Standard Drinks/Week Comments Yes 0 (1 standard drink = 0.6 oz pur e alcohol) beer socially Sex and Gender Information Value Date Recorded Sex Assigned at Not on file Gender Identity Not on file Sexual Orientation Not on file documented as of this encounter Last Filed Vital Signs Vital Sign Reading Time Taken Comments Blood Pressure - - Pulse - - Temperature - - Respiratory Rate - - Oxygen Saturation - - Inhaled Oxygen Concentration - - Weight 95.3 kg (210 lb) 05/07/2023 1:56 PM GROUND CREWMAN AIRCRAFT SUPPORT Height 175.3 cm (5' 9) 05/07/2023 1:56 PM GROUND CREWMAN AIRCRAFT SUPPORT Body Mass Index 31.01 05/07/2023 1:56 PM GROUND CREWMAN AIRCRAFT SUPPORT documented in this encounter Progress Notes * Santy, Julien BedoyaAMIE - 05/07/2023 1:30 PM CST DATE OF SERVICE: 05/07/23 CHIEF COMPLAINT: low back pain HPI: iVrgilio Jackson is a pleasant 62 y.o. male here today for evaluation for the above stated issues. During his previous visit on 04/30/23 with myself, the patient presented approximately 6 months statuspost Anterior Fusion L5-S1, Posterior Fusion L4-S1 with Instrumentation L3-Pelvis, Hardware RemovalL3-5 (DOS:10/20/22) with Dr. Dalton. He reports definite improvement in his presurgical lower extremity pain. However he still dealing with lower back pain related to activities going from the sitting to standing position is still quite painful laying supine and rotating can be quite painful. This pain is different than the pain he was dealing with prior to surgery. Today, the patient presents approximately 6 months status post Anterior Fusion L5-S1, Posterior Fusion L4-S1 with Instrumentation L3-Pelvis, Hardware Removal L3-5 (DOS:10/20/22) with Dr. Dalton. Hereports he still with some pain related to his activities. He questions results of his CT scan.. REVIEW OF SYSTEMS: I have reviewed the last complete 10 point Review of Systems with the patient and any changes in findings are listed as part of today's visit. All other systems are negative. The patient's Past Medical/Surgical/Family/Social history have been reviewed and verified with the patient. The patient's current medications have been reviewed and verified with the patient. Current Outpatient Medications on File Prior to Visit Medication Sig Dispense Refill acetaminophen (TYLENOL) 500 mg oral tablet Take 2 tablets (1,000 mg) by mouth once daily. calcium carbonate (TUMS) 200 mg calcium (500 mg) oral chew tab Chew 1 tablet (500 mg) twice a day with breakfast and dinner. 180 tablet 2 Calcium Citrate 200 mg (950 mg) oral Tab Take 1 tablet by oral route 2 times every day. cholecalciferol, vitamin D3, (VITAMIN D3 ORAL) Take 5,000 Int'l Units/day by mouth once daily. EPINEPHrine (EPIPEN) 0.3 mg/0.3 mL Injection auto-injector ONE INJECTION DIRECTED FOR ANAPHYLAXIS losartan (COZAAR) 50 mg oral tablet Take 1 tablet (50 mg) by mouth Daily. magnesium 250 mg oral Tab Take 1 tablet (250 mg) by mouth twice a day. Miscellaneous Medical Supply Orthofix BGS for use following spine surgery 1 each 0 VITAMIN D2 1,250 mcg (50,000 unit) oral capsule TAKE ONE TABLET BY MOUTH ONCE WEEKLY No current facility-administered medications on file prior to visit. PHYSICAL EXAM: @VSR@ General: Patient in NAD; alert and oriented x4/4; appears stated age. HENT: Head normocephalic/atraumatic, hearing grossly intact bilaterally. Eyes: Grossly EOMI, clear sclera. Skin: Shows good hydration and turgor. Neck: Supple, trachea is midline. Respiratory: Breathing unlabored. Gait: Patient walks with a well-balanced gait. Range of Motion: Limited range of motion lumbar spine Extremity ROM: Normal active range of motion in bilateral hips, knees, ankles, shoulders, elbows, wrists. Back: Tender over the mid lumbar paraspinous muscles Neuro: Cranial nerves II-XII are intact and functioning to gross inspection. Alert and oriented, follows commands appropriately, speech clear. Motor Examination: Muscles are symmetrical, no deformities or atrophy. Motor examination in the bilateral lower extremities demonstrates grade 5/5 strength in all major motor groups. Motor examination in the bilateral upper extremities demonstrates grade 5/5 strength in all major motor groups. Sensory Examination: Light touch sensation in the lower extremities is subjectively normal throughout all major dermatomes bilaterally. Light touch sensation in the upper extremities is subjectively normal throughout all major dermatomes bilaterally. Deep Tendon Reflexes: Reflexes at the patella and Achilles are symmetric and grade 2 bilaterally. Tinel's: Tinel's at the elbows and wrists were negative bilaterally. Spurling's: Spurling's exam is negative for radicular pain. Long Tract Signs: Chau's and clonus negative bilaterally. Vascular: Extremities are warm bilaterally. Psychiatric: Patient is cooperative, polite, communicates well, makes eye contact, and expresses appropriate concern throughout history. Normal affect. IMAGING: The patient did have imaging prior to this appointment which I reviewed myself and discussed the findings with him. The impression is: 05/06/23- CT Lumbar Spine- Rayus CONCLUSION: Multilevel degenerative lumbar spondylosis, interbody fusion at L3-4 through L5-S1 (solid at L3-4 and L5-S1 and with evidence of ongoing healing at L4-5, dorsolateral instrumented fusion from L3 through the iliac bones (without instrumentation fracture or marginal lucency), solid dorsolateral bony fusion bilaterally from L3 to L4 and on the left from L4 to L5 and the following notablefindings: 1. Chronic mild central/mild to moderate right subarticular recess stenosis at L2-3. 2. No disc herniation, acute fracture or spondylolysis. 3. Multilevel mild to moderate chronic foraminal narrowing without ganglionic compression as detailed above. 04/17/23- XR Cervical Spine- Rayus INTERPRETATION: Instrument anterior and dorsal fusion L3-4 through L5-S1 with bilateral iliac screws are again evident. No instrumentation failure or loosening evident. No change in appearance of bony structures. CONCLUSION: Stable postoperative exam. ASSESSMENT: Status post AP lumbar fusion L3-S1 most recent fusion L5-S1- nearly solid fusion throughout PLAN: 1. I had a long talk with Virgilio Jackson today regarding the diagnosis and treatment recommendations. We talked about activity restrictions and modifications. We also discussed medication management and wound care measures going forward. 2. Due to his current condition and response to treatment thus far, I recommended Troy continue to increase his activities as he can tolerate we discussed that his CT scan gives the appearance of a solid interbody fusion at L3-4 and L5-S1 and a dorsal fusion at each of the levels. He is continue to work on increasing activities and we will see him back in 6 months for 1 year visit He will follow up 6 months At the end of our visit, Virgilio Jackson understands the current diagnosis and future treatment plan, and questions were answered satisfactorily. I also asked if there are any other questions or concerns otherwise, that he please call back to the office; understanding of this was expressed. Today's visit was 15 minutes in length, greater than 50% was dedicated to counseling. REMOTE TELESCRIBE ATTESTATION: I, Radha Whiting am serving as a remote telescribe to document services personally performed by Julien Madera PA-C, and have constructed this note based upon discussion of the services providedand the practitioner's statements to me. I attest that through the duration of documentation services, I remained in a HIPAA compliant location. All documentation has been reviewed by the aforementioned provider. PROVIDER ATTESTATION: Julien Haji PA-C attest the above information is a true representation of the patient encounter. The information in this document, created by the medical telescribe for me, accurately reflects the services I personally performed and the decisions made by me. I have reviewed this document and have made the final edit(s). Authenticated by Julien Madera PA-C on 05/07/23 at 7:10 PM. [place] CREWMAN AIRCRAFT SUPPORT * Humaira Acosta - 05/07/2023 1:30 PM CST Images from the original note were not included. Virgilio Jackson 62M Refine SearchContact the [facility] Date of : 1960 Recent Address: [address] [place] [address] View Linked Records (2) Other Tools/Metrics Report Criteria First Name: Virgilio Last Name: Manuel : 1960 Linked Records ? Name: Virgilio Jackson : 1960 ID: [id number] Gender: Male Address: [address] [place] [address] Name: Virgilio Jackson : 1960 ID: [id number] Gender: Male Address: [address] [place] [address] Report generated on 05/07/2023. Report Date Range: 05/07/2022 - 05/07/2023 PDF ReportExportState Indicators (0) Details RX Summary Summary Total Prescriptions 4 Total Private Pay 0 Total Prescribers 3 Total Pharmacies 2 Narcotics (excluding Buprenorphine) Current MME/day 0.00 30 Day Avg MME/day 0.00 Current Qty 0 Buprenorphine Current mg/day 0.00 30 Day Avg mg/day 0.00 Current Qty 0 Prescriptions Total: 4 Private Pay: 0 Showing 1-4 of 4 Items View 15 Items 1 of 1 Filled Written Sold ID Drug QTY Days Prescriber RX # Dispenser Refill Daily Dose* Pymt Type DIRECTOR ORANGE 12/17/2022 12/17/2022 12/17/2022 1 Hydromorphone 2 Mg Tablet 30.00 7 Montes Joe [id number] Cob (3743) 0/0 42.86 MME Comm Ins [place] 10/29/2022 10/29/2022 11/04/2022 1 Hydromorphone 2 Mg Tablet 36.00 6 Ja Gut [id number] Cob (3743) 0/0 60.00 [place] 10/22/2022 10/22/2022 2 Hydromorphone 2 Mg Tablet 36.00 4 Al Edw [id number] Nor (1997) 0/0 90.00 MME Other [place] 05/28/2022 05/28/2022 05/28/2022 1 Gabapentin 300 Mg Capsule 90.00 30 Ja Gut [id number] Cob (3743) 0/0Comm Ins [place] Providers Total: 3 Showing 1-3 of 3 Items View 15 Items 1 of 1 Name Address [facility] Zipcode Phone Julien Madera [address] [facility] [address] [facility] [address] Herbert Melendez [address] [facility] [id number] Monica Mei [address] [facility] [address] Showing 1-3 of 3 Items View 15 Items 1 of 1 Pharmacies Total: 2 Showing 1-2 of 2 Items View 15 Items 1 of 1 Name Address [facility] Zipcode Phone [id number] [phone] [address] [facility] [address] [facility] (1997) [address] [facility] [address] As a proxy delegate, I have queried the [place] and/or [place] Prescription Monitoring Program for this patient and provided the clinician with the above information for the preceding 12 months. RT. Ravin Caldwell 05/07/2023 8:24 AM ND CREWMAN AIRCRAFT SUPPORT * Dennis Salinas, OPTIMIZATION ANALYST - 05/07/2023 1:30 PM CST Reason for visit: F/U CT RAYUS 05/06/23 - POST OP / Ant fusion L5-S1, HWR L3-5, PSF L4-S1 with inst L3-Pelvis DOS 10-20-2022 W/ SMS symptoms: Transitions are most difficult, and causes severe pain for about 15 seconds after a transition. Doenst feel he is ready for PT Patient states increase in mid back pain without radiation since last seen- constant. Denies any N/T/W in legs/feet Pain Score: 08/20 Imaging/Location/ Date/ RONAN: 04/17/23 2VL done at [facility] Injections: Location: Relief: Physical Therapy: None following surgery Location: Relief: Current pain meds: Tylenol Changes in health history since last visit: No changes Any major falls in the last year: no Did the fall(s) result in injury: no Is the patient at risk for falls: no Is a Disability or Workability Form needed - no Current RTW date - Work Comp: no Date: MVA: no Date: ND CREWMAN AIRCRAFT SUPPORT documented in this encounter Plan of Treatment Not on file documented as of this encounter Visit Diagnoses Diagnosis Lumbar radiculopathy- Primary Thoracic or lumbosacral neuritis or radiculitis, unspecified documented in this encounter Care Teams Earth Science Teacher Relationship Specialty Start Date End Date Clinic, No Primary PCP - General 08/27/22 Clinic, No Primary PCP - Primary Care Clinic 08/27/22 documented as of this encounter
--- OUTSIDE RECORDS SUMMARY | 2023-07-29 09:07 | XMS_ITS | Clinical Summary ---
Author Name Unknown Organization [facility] Address [address] [place] [address] Care Team Providers Care Forensic Accountant Name Role Phone Clinic, No Primary Primary Care Provider Unavail able Clinic, No Primary Unavailable Unavailable Allergies Active Allergy Reactions Criticality Noted Date Comments Bee Venom Protein (Honey Bee) Anaphylaxis High 06/04/2015 Lisinopril Other 03/11/2022 Itchy throat Penicillins Swelling, lips/tongue High 07/16/2006 Swelling of lips and tongue Cerner Listed reactions Other reaction(s): numbness in lips and tongue Other Reaction(s): Anaphylaxis Medications Medication Sig Dispensed Refills Start Date End Date Status losartan (COZAAR) 50 mg oral tablet Take 1 tablet (50 mg) by mouth Daily. 08/02/2022 Active VITAMIN D2 1,250 mcg (50,000 unit) oral capsule TAKE ONE TABLET BY MOUTH ONCE WEEKLY 08/07/2022 Active EPINEPHrine (EPIPEN) 0.3 mg/0.3 mL Injection auto-injector ONE INJECTION DIRECTED FOR ANAPHYLAXIS 12/23/2021 Active Calcium Citrate 200 mg (950 mg) oral Tab Take 1 tablet by oral route 2 times every day. 03/05/2022 Active acetaminophen (TYLENOL) 500 mg oral tablet Take 2 tablets (1,000 mg) by mouth once daily. 03/14/2022 Active Miscellaneous Medical SupplyIndications: S/P lumbar fusion Orthofix BGS for use following spine surgery 1 each 09/01/2022 Active magnesium 250 mg oral Tab Take 1 tablet (250 mg) by mouth twice a day. Active cholecalciferol, vitamin D3, (VITAMIN D3 ORAL) Take 5,000 Int'l Units/day by mouth once daily. Active calcium carbonate (TUMS) 200 mg calcium (500 mg) oral chew tab Chew 1 tablet (500 mg) twice a day with breakfast and dinner. 180 tablet 2 03/12/2023 Active Active Problems Problem Noted Date Diagnosed Date Herniated lumbar intervertebral disc 12/04/2022 Overview: L2-3 Low back pain 12/04/2022 Lumbar radiculopathy 10/20/2022 Paroxysmal atrial fibrillation 10/20/2022 Essential hypertension 10/20/2022 Bulging of intervertebral disc between L4 and L5 02/27/2022 Right kidney stone 06/17/2020 Encounters Date Type Department Care Team Description 05/07/2023 1:30 PM PENCIL SORTER Office Visit [facility] (an affiliate of [facility]) [address] [place] [phone] Julien Madera PA-C Lumbar radiculopathy (Primary Dx) 05/07/2023 Travel 05/06/2023 Order-Scan [facility] (an [facility] of [facility]) [address] [place] [address] Reported, Patient 04/30/2023 9:15 AM PENCIL SORTER Office Visit [facility] (an affiliate of [facility]) [address] [place] [phone] Julien Madera PA-C S/P lumbar fusion (Primary Dx); Lumbar spine pain; Lumbar radiculopathy 04/30/2023 Travel from Last 3 Months Social History Tobacco Use Types Packs/Day Years Used Date Smoking Tobacco: Never Smokeless Tobacco: Never Tobacco Cessation:Counseling Given: Not Answered Alcohol Use Standard Drinks/Week Comments Yes 0 (1 standard drink = 0.6 oz pur e alcohol) beer socially Sex and Gender Information Value Date Recorded Sex Assigned at Not on file Gender Identity Not on file Sexual Orientation Not on file Last Filed Vital Signs Vital Sign Reading Time Taken Comments Blood Pressure 128/82 10/22/2022 5:50 PM CDT Pulse 90 10/22/2022 5:50 PM CDT Temperature 37.4 ??C (99.3 ??F) 10/22/2022 5:50 PM CD T Respiratory Rate 20 10/22/2022 5:50 PM CDT Oxygen Saturation 95% 10/22/2022 5:50 PM CDT Inhaled Oxygen Concentration - - Weight 95.3 kg (210 lb) 05/07/2023 1:56 PM PENCIL SORTER Height 175.3 cm (5' 9) 05/07/2023 1:56 PM PENCIL SORTER Body Mass Index 31.01 05/07/2023 1:56 PM PENCIL SORTER Plan of Treatment Health Maintenance Due Date Last Done Comments Colonoscopy 1960 Hepatitis C Screening 1960 Lipid Screening 1960 Depression Assessment (PHQ-2) 06/27/1959 Zoster Vaccine (1 of 2) 2008 RSV 60+ Yrs (1 - 1-dose 60+ series) 2018 COVID-19 Vaccine ( - season) 2022 03/25/2021, 07/27/2020, 06/29/2020 Pneumococcal 65+ (1 of 1 - PCV) 06/27/2023 Yearly Review of HCD 09/11/2023 09/11/2022 Influenza Vaccine (Season Ended) 2023 05/03/19 17 Diabetes Screening 10/21/2025 10/21/2022 Adult Tetanus Booster 09/05/2027 09/04/2017, 014 Medical Devices Implanted Type Area Program Proposals Coordinator Device Identifier Shelf Expiration Date Model / Serial / Lot Curry Paste Plus 5cc - [id number] Implanted:Qty : 1 on 10/20/2022 by Benny Dalton MD at [facility] N/A: Spine Lumbar Medtronic Inc 11/21/2023 [id number] / [id number] / Cancellous Chips 30cc - [id number] Implanted:Qty : 1 on 10/20/2022 by Benyn Dalton MD at [facility] N/A: Spine Lumbar Medtronic Inc 08/05/2026 [id number] / [id number] / Infuse Sm - [id number] Implanted:Qty : 1 on 10/20/2022 by Benny Dalton MD at [facility] Prosthetic Implant Non-Specific N/A: Spine Lumbar Medtronic Sofamor Danek 04/13/2024 [id number] / / [id number] Geovanni 120mm 5.5mm Ccm Curv - [id number] Implanted:Qty : 2 on 10/20/2022 by Benny Dalton MD at [facility] Geovanni N/A: Spine Lumbar Medtronic Inc [id number] / / Set Screw Solera Brk Off - [id number] Implanted:Qty : 8 on 10/20/2022 by Benny Dalton MD at [facility] Screw/[place] N/A: Spine Lumbar Medtronic Inc [id number] / / Scr Spnl 8.5x70mm Multiaxial - [id number] Implanted:Qty : 2 on 10/20/2022 by Benny Dalton MD at [facility] Screw/[place] N/A: Spine Lumbar Medtronic Inc [id number] / / Montes Coated Screw Implanted:Qty : 2 on 10/20/2022 by Benny Dalton MD at [facility] Screw/[place] N/A: Spine Lumbar 11/25/2022 [id number] / / [id number] 25mm Divergence Screw Implanted:Qty : 2 on 10/20/2022 by Benny Dalton MD at [facility] Spine Lumbar [id number] / / [id number] Xlg 17mm Titan Tas Implanted:Qty : 1 on 10/20/2022 by Benny Dalton MD at [facility] Spine Lumbar Medtronic Inc [id number] / / [id number] Procedures Procedure Name Priority Date/Time Associated Diagnosis Comments SCANNED RADIOLOGY Routine 05/06/2023 2:4 4 PM PENCIL SORTER BASIC METAB PROFILE Routine 10/21/2022 4 :05 PM CDT from Last 3 Months or Most Recently Relevant to Health Maintenance Results * SCANNED RADIOLOGY (05/06/2023 2:44 PM PENCIL SORTER) Anatomical Region Laterality Modality Other Patient Reported XRAY ORDERABLE * (ABNORMAL) Basic Metab Profile (10/21/2022 4:05 PM CDT) Sodium 133(L) 136 - 145 mmol/L ATELLICA ANALYZER 10/21/2022 5:19 PM CDT [facility] Potassium 3.8 3.4 - 5.1 mmol/L ATELLICA ANALYZER 10/21/2022 5:19 PM CDT [facility] Chloride 100 98 - 108 mmol/L ATELLICA ANALYZER 10/21/2022 5:19 PM CDT [facility] Carbon Dioxide 30 20 - 31 mmol/L ATELLICA ANALYZER 10/21/2022 5:19 PM CDT [facility] BUN (Urea Nitro) 12 9 - 23 mg/dL ATELLICA ANALYZER 10/21/2022 5:19 PM CDT [facility] Creatinine 0.91 0.60 - 1.10 mg/dL ATELLICA ANALYZER 10/21/2022 5:19 PM CDT [facility] Est GFR (CKD-EPI) >60.00 >60.00 mL/min/1. 73m2 ATELLICA ANALYZER 10/21/2022 5:19 PM CDT [facility] Comment:Calculation based on the Chronic Kidney Disease Epidemiology Collaboration (CKD-EPI) equation refit without adjustment for race. Glucose 116(H) 74 - 106 mg/dL ATELLICA ANALYZER 10/21/2022 5:19 PM CDT [facility] Calcium, Serum 8.5(L) 8.7 - 10.4 mg/dL ATELLICA ANALYZER 10/21/2022 5:19 PM CDT [facility] Anion Gap 3.0 0.0 - 15.0 mmol/L ATELLICA ANALYZER 10/21/2022 5:19 PM CDT [facility] Blood Venipuncture / Unknown 10/21/2022 4:05 PM CDT 10/21/2022 4:53 PM CDT Benny Dalton MD CHEMISTRY ORDERAB LE [facility] [id number] [phone] from Last 3 Months or Most Recently Relevant to Health Maintenance Advance Directives For more information, please contact: [phone] Latest Code Status on File Code Status Date Activated Date Inactivated Comments Full Code 10/20/2022 5:26 PM 10/23/2022 1:10 AM Question Answer Comments How was code status determined? Patient Code Status History Code Status Date Activated Date Inactivated Comments Full Code 10/20/2022 5:42 AM 10/20/2022 1:13 PM Question Answer Comments How was code status determined? Previous Documen [facility] Care Teams Forensic Accountant Relationship Specialty Start Date End Date Clinic, No Primary PCP - General 08/27/22 Clinic, No Primary PCP - Primary Care Clinic 08/27/22
--- OUTSIDE RECORDS SUMMARY | 2023-07-29 09:07 | XMS_ITS | Encounter Summary ---
Author Name Unknown Organization [facility] Address [address] [place] [address] Care Team Providers Care Metal Crafts Teacher Name Role Phone Clinic, No Primary Primary Care Provider Unavail able Clinic, No Primary Unavailable Unavailable Encounter Details Date Type Department Care Team (Latest Contact Info) Description 04/30/2023 Travel Social History Tobacco Use Types Packs/Day Years Used Date Smoking Tobacco: Never Smokeless Tobacco: Never Alcohol Use Standard Drinks/Week Comments Yes 0 (1 standard drink = 0.6 oz pur e alcohol) beer socially Sex and Gender Information Value Date Recorded Sex Assigned at Not on file Gender Identity Not on file Sexual Orientation Not on file documented as of this encounter Plan of Treatment Not on file documented as of this encounter Visit Diagnoses Not on filedocumented in this encounter Care Teams Metal Crafts Teacher Relationship Specialty Start Date End Date Clinic, No Primary PCP - General 08/27/22 Clinic, No Primary PCP - Primary Care Clinic 08/27/22 documented as of this encounter
--- OUTSIDE RECORDS SUMMARY | 2023-07-29 09:07 | XMS_ITS | Referral Summary ---
Author Name Unknown Organization [facility] Address [address] [place] [address] Care Team Providers Care Magazine Journalist Name Role Phone Clinic, No Primary Primary Care Provider Unavail able Clinic, No Primary Unavailable Unavailable Encounters Date Type Department Care Team Description 05/07/2023 Travel 05/07/2023 1:30 PM TOOL FILER HAND Office Visit [place] [facility] (an affiliate [facility] [address] [facility] [address] [place] [phone] Julien Madera PA-C Lumbar radiculopathy (Primary Dx) 05/06/2023 Order-Scan [place] [facility] [place] [address] [facility] [address] [place] [address] Reported, Patient 04/30/2023 Travel 04/30/2023 9:15 AM TOOL FILER HAND Office Visit [place] [facility] Brain [facility] (an affiliate of [facility]) [address] [facility] [address] [place] [phone] Julien Madera PA-C S/P lumbar fusion (Primary Dx); Lumbar spine pain; Lumbar radiculopathy from Last 3 Months Allergies Active Allergy Reactions Criticality Noted Date [...] and L5 02/27/2022 Right kidney stone 06/17/2020 Social History Tobacco Use Types Packs/Day Years [...] 95.3 kg (210 lb) 05/07/2023 1:56 PM TOOL FILER HAND Height 175.3 cm (5' 9) 05/07/2023 1:56 PM TOOL FILER HAND Body Mass Index 31.01 05/07/2023 1:56 PM TOOL FILER HAND Plan of Treatment Not on file Medical Devices Implanted Type Area Flying Ii Instructor Device Identifier Shelf Expiration Date Model / Serial / Lot [place] Paste Plus 5cc - [id number] Implanted:Qty : 1 on 10/20/2022 by Benny Dalton MD at [facility] N/A: Spine Lumbar Medtronic Inc 11/21/2023 [id number] / [id number] / Cancellous Chips 30cc - [id number] Implanted:Qty : 1 on 10/20/2022 by Benny Dalton MD at [facility] N/A: Spine Lumbar Medtronic Inc 08/05/2026 [id number] / [id number] / Infuse Sm - [id number] Implanted:Qty : 1 on 10/20/2022 by Benny Dalton MD at [facility] Prosthetic Implant Non-Specific N/A: Spine Lumbar Medtronic Sofamor Danek 04/13/2024 [id number] / / [id number] Geovanni 120mm 5.5mm Ccm Curv - [id number] Implanted:Qty : 2 on 10/20/2022 by Benny Dalton MD at [facility] Geovanni N/A: Spine Lumbar Medtronic Inc [id number] / / Set Screw Solera Brk Off - [id number] Implanted:Qty : 8 on 10/20/2022 by Benny Dalton MD at [facility] Screw/Delmar N/A: Spine Lumbar Medtronic Inc [id number] / / Scr Spnl 8.5x70mm Multiaxial - [id number] Implanted:Qty : 2 on 10/20/2022 by Benny Dalton MD at [facility] Screw/Delmar N/A: Spine Lumbar Medtronic Inc [id number] / / Montes Coated Screw Implanted:Qty : 2 on 10/20/2022 by Benny Dalton MD at [facility] Screw/Delmar N/A: Spine Lumbar 11/25/2022 [id number] / / [id number] 25mm Divergence Screw Implanted:Qty : 2 on 10/20/2022 by Benny Dalton MD at [facility] Spine Lumbar [id number] / / [id number] Xlg 17mm Titan Tas Implanted:Qty : 1 on 10/20/2022 by Benny Dalton MD at [facility] Spine Lumbar Medtronic Inc [id number] / / [id number] Procedures Procedure Name Priority Date/Time Associated Diagnosis Comments SCANNED RADIOLOGY Routine 05/06/2023 2:4 4 PM TOOL FILER HAND BASIC METAB PROFILE Routine 10/21/2022 4 :05 PM CDT from Last 3 Months or Most Recently Relevant to Health Maintenance Results * SCANNED RADIOLOGY (05/06/2023 2:44 PM TOOL FILER HAND) Anatomical Region Laterality Modality Other Patient Reported XRAY ORDERABLE * (ABNORMAL) Basic Metab Profile (10/21/2022 4:05 PM CDT) Sodium 133(L) 136 - 145 mmol/L ATELLICA ANALYZER 10/21/2022 5:19 PM CDT [facility] Potassium 3.8 3.4 - 5.1 mmol/L ATELLICA ANALYZER 10/21/2022 5:19 PM CDT [facility] Chloride 100 98 - 108 mmol/L ATELLICA ANALYZER 10/21/2022 5:19 PM CDT [facility] Carbon Dioxide 30 20 - 31 mmol/L ATELLICA ANALYZER 10/21/2022 5:19 PM CDT [facility] BUN (Urea Nitro) 12 9 - 23 mg/dL ATELLICA ANALYZER 10/21/2022 5:19 PM CDT [facility] Creatinine 0.91 0.60 - 1.10 mg/dL ATELLICA ANALYZER 10/21/2022 5:19 PM CDT [facility] Est GFR (CKD-EPI) >60.00 >60.00 mL/min/1. 73m2 ATELLICA ANALYZER 10/21/2022 5:19 PM CDT [facility] Comment:Calculation based on the Chronic Kidney Disease Epidemiology Collaboration (CKD-EPI) equation refit without adjustment for race. Glucose 116(H) 74 - 106 mg/dL ATELLICA ANALYZER 10/21/2022 5:19 PM CDT [facility] Calcium, Serum 8.5(L) 8.7 - 10.4 mg/dL ATELLICA ANALYZER 10/21/2022 5:19 PM CDT [facility] Anion Gap 3.0 0.0 - 15.0 mmol/L ATELLICA ANALYZER 10/21/2022 5:19 PM CDT [facility] Blood Venipuncture / Unknown 10/21/2022 4:05 PM CDT 10/21/2022 4:53 PM CDT Benny Dalton MD CHEMISTRY ORDERAB LE [facility] [address] [address] from Last 3 Months or Most Recently Relevant to Health Maintenance Advance Directives For more information, please contact: [phone] Latest Code Status on File Code Status Date Activated Date Inactivated Comments Full Code 10/20/2022 5:26 PM 10/23/2022 1:10 AM Question Answer Comments How was code status determined? Patient Code Status History Code Status Date Activated Date Inactivated Comments Full Code 10/20/2022 5:42 AM 10/20/2022 1:13 PM Question Answer Comments How was code status determined? Previous [facility] Teams Magazine Journalist Relationship Specialty Start Date End Date Clinic, No Primary PCP - General 08/27/22 Clinic, No Primary PCP - Primary Care Clinic 08/27/22
--- OUTSIDE RECORDS SUMMARY | 2023-07-29 09:07 | XMS_ITS | Encounter Summary ---
Author Name Unknown Organization [facility] h Address [address] [place] [address] Care Team Providers Care Director Of Sustainability Programs Name Role Phone Clinic, No Primary Primary Care Provider Unavail able Clinic, No Primary Unavailable Unavailable Encounter Details Date Type Department Care Team (Late st Contact Info) Description 05/06/2023 Order-Scan [facility] ([facility]) [address] [place] [phone] Reported, Patient Social History Tobacco Use Types Packs/Day Years [...] on file documented as of this encounter Procedures Procedure Name Priority Date/Time Associated Diagnosis Comments SCANNED RADIOLOGY Routine 05/06/2023 2:44 PM ENDLESS TRACK VEHICLE SUPERVISOR documented in this encounter Results * SCANNED RADIOLOGY (05/06/2023 2:44 PM ENDLESS TRACK VEHICLE SUPERVISOR) Anatomical Region Laterality Modality Other Patient Reported XRAY ORDERABLE documented in this encounter Visit Diagnoses Not on filedocumented in this encounter Care Teams Director Of Sustainability Programs Relationship Specialty Start Date End Date Clinic, No Primary PCP - General 08/27/22 Clinic, No Primary PCP - Primary Care Clinic 08/27/22 documented as of this encounter
--- OUTSIDE RECORDS SUMMARY | 2023-07-29 09:07 | XMS_ITS | Encounter Summary ---
Author Name Unknown Organization [facility] Address [address] [place] [address] Care Team Providers Care In Home Sales Representative Name Role Phone Clinic, No Primary Primary Care Provider Unavail able Clinic, No Primary Unavailable Unavailable Encounter Details Date Type Department Care Team (Latest Contact Info) Description 05/07/2023 Travel Social History Tobacco Use Types Packs/Day [...] on filedocumented in this encounter Care Teams In Home Sales Representative Relationship Specialty Start Date End Date Clinic, No Primary PCP - General 08/27/22 Clinic, No Primary PCP - Primary Care Clinic 08/27/22 documented as of this encounter
--- OUTSIDE RECORDS SUMMARY | 2023-07-29 09:08 | XMS_ITS | Continuity of Care Document ---
Author Name Unknown Organization [facility] Address [address] [place] [address] Phone Care Team Providers Care Mainspring Barrel Assembly Cleaner Name Role Phone Payam Sung MD Unavailable Unavailab le Allergies, Adverse Reactions, Alerts Substance Reaction Status Criticality Penicillins Active No Information Medications Medication Instructions Dosage Effective Dates (start - stop) Status Comments ALEVE (unknown strength) Not Available - Active Procedures Procedure Date Office/Outpatient Visit,[facility] [place] Exam Of Lower Spine, Bending Advance Directives Directive Yes / No Effective Date File Name No Information Encounters Encounter Description Practice Location Reason(s) For Visit Diagnoses Date Provider Providers Copied on Encounter [facility], [address], [place], [place], [id number] , [place] tel: [phone] [facility] No Information 6 Ana Lilia sommers [facility], [address] [place] [address], [address], [place], [place], [id number] , [place]. tel: [phone] Office/Outpa tient Visit,[facility], [facility], [address], [place], [place], [id number] , [place] tel: [phone] [facility] OverweightEssentia l (primary) hypertensionSpinal stenosis of lumbosacral regionSpondylolist hesis of lumbar region 5 Ana Lilia Miranda er. [facility], [address] [place] [address], [address], [place], [place], [id number] , [place]. tel: [phone] Referring Provider: Agusto Simpson, [facility] [address] [facility], [place], [address]. tel:[phone] Family History Family Member Type Diagnosis Age At Onset No Information Payers Payer name Insurance type Covered alliance party ID Vinay quiles(s) BCBS [id number] [facility] [id number] Social History Type Description Quantity Date Captured [...]
--- OUTSIDE RECORDS SUMMARY | 2023-07-29 09:08 | XMS_ITS | Encounter Summary ---
Author Name Unknown Organization [facility] Address [address] [place] [address] Care Team Providers Care Hooker Laster Name Role Phone Clinic, No Primary Primary Care Provider Unavail able Clinic, No Primary Unavailable Unavailable Reason for Referral * Radiology Services (Routine) - Closed Specialty Diagnoses / Procedures Referred By Contac t Referred To Contact Diagnoses S/P lumbar fusion Lumbar spine pain Lumbar radiculopathy Procedures CT SPINE LUMBAR W/O CON Julien Madera PA-C [address] [facility] [place] [place] [address] [place] [address] [place] [address] [address] Referral ID Status Reason Start Date Expiration Date Visits Re quested Visits Authorized [id number] Closed 05/01/2023 1 1 YTICAL LAB TECHNICIAN Reason for Visit * Reason Comments Post op check Post op: 10/20/22 AP fusion L4-S1 with instrumentation L3-pelvis, RHW L3-5 (SMS) Encounter Details Date Type Department Care Team (Late st Contact Info) Description 04/30/2023 9:15 AM ANALYTICAL LAB TECHNICIAN Office Visit [facility]) [address] [facility] [address] [place] [address] Julien Madera PA-C [address] [facility] [place] [place] [address] [place] [address] S/P lumbar fusion (Primary Dx); Lumbar spine pain; Lumbar radiculopathy Social History Tobacco Use Types Packs/Day Years [...] - - Weight 95.3 kg (210 lb) 04/30/2023 9:50 AM ANALYTICAL LAB TECHNICIAN Height 175.3 cm (5' 9) 04/30/2023 9:50 AM ANALYTICAL LAB TECHNICIAN Body Mass Index 31.01 04/30/2023 9:50 AM ANALYTICAL LAB TECHNICIAN documented in this encounter Progress Notes * Julien Madera PA-C - 04/30/2023 9:15 AM CST DATE OF SERVICE: 04/30/23 CHIEF COMPLAINT: Postoperative Visit HPI: Virgilio Jackson is a pleasant 62 y.o. male here today for evaluation for the above stated issues. During his previous visit on 01/14/23 with myself, the patient presented approximately 3 months s/p Anterior Fusion L5-S1, Posterior Fusion L4-S1 with Instrumentation L3-Pelvis, Hardware Removal L3-5 (DOS:10/20/22) with Dr. Dalton. He was doing very well postoperatively. His symptoms continued to improve. Overall, symptoms continued to improve, and he was happy with the results thus far. Today, the patient presents approximately 6 months status post Anterior Fusion L5-S1, Posterior Fusion L4-S1 with Instrumentation L3-Pelvis, Hardware Removal L3-5 (DOS:10/20/22) with Dr. Dalton. Hereports definite improvement in his presurgical lower extremity pain. However he still dealing withlower back pain related to activities going from the sitting to standing position is still quite painful laying supine and rotating can be quite painful. This pain is different than the pain he was dealing with prior to surgery. REVIEW OF SYSTEMS: I have reviewed the [...] Injection auto-injector ONE INJECTION DIRECTED FOR ANAPHYLAXIS HYDROmorphone (DILAUDID) 2 mg oral tablet TAKE ONE TABLET EVERY 4-6 HOURS NEEDED FOR PAIN *CAUTION: OPIOID. RISK OF OVERDOSE AND ADDICTION. losartan (COZAAR) 50 mg oral tablet Take 1 tablet (50 mg) by mouth Daily. magnesium 250 mg oral Tab Take 1 tablet (250 mg) by mouth twice a day. [employer] Bone Growth Stimulator to be worn as directed. Company: Orth[employer]ix 1 each 0 [employer] Orthofix BGS for use following [...] Range of Motion: Limited range of motion of the lumbar spine Extremity ROM: Normal active range of motion in bilateral hips, knees, ankles, shoulders, elbows, wrists. Tender throughout the lower lumbar paraspinous muscles Neuro: Cranial nerves II-XII [...] the findings with him. The impression is: 04/17/23 XR Lumbar Spine (2/3 View) - RAYUS CONCLUSION: Stable postoperative exam. ASSESSMENT: 6 months status post Anterior Fusion L5-S1, Posterior Fusion L4-S1 with Instrumentation L3-Pelvis, Hardware Removal L3-5 (DOS:10/20/22) PLAN: 1. I had a long talk with Virgilio Jackson today regarding the diagnosis and treatment recommendations. We talked about activity restrictions and modifications. We also discussed medication management and wound care measures going forward. 2. Due to his current condition and response to treatment thus far, I recommended obtain a CT scan lumbar spine to further evaluate his fusion status. We discussed with his high degree of lower back pain delayed union is a possibility. Will see him back to review the results He will follow up after his imaging At the end of our visit, Virgilio Jackson understands the current diagnosis and future treatment plan, and questions were answered satisfactorily. I also asked if there are any other questions or concerns otherwise, that he please call back to the office; understanding of this was expressed. Today's visit was 20 minutes in length, greater than 50% was dedicated to counseling. REMOTE TELESCRIBE ATTESTATION: I, Gabrielle Young am serving as a remote telescribe to document services personally performed by Julien Madera PA-C, and have constructed this note based upon discussion of the services provided and the practitioner's statements to me. I attest that through the duration of documentation services,I remained in a HIPAA compliant location. All documentation has been reviewed by the aforementionedprovider. PROVIDER ATTESTATION: I, Julien Madera PA-C attest the above information is a true representation of the patient encounter. The information in this document, created by the medical telescribe for me, accurately reflects the services I personally performed and the decisions made by me. I have reviewed this document and have made the final edit(s). Authenticated by Julien Madera PA-C on 04/30/23 at 10:47 AM. YTICAL LAB TECHNICIAN * Viktor Thurman - 04/30/2023 9:15 AM CST Images from the original note were not included. Virgilio Jackson 62M Refine SearchContact the [facility] CastingDB/Help [place] Date of : 1960 Recent Address: [address] [place] [address] View Linked Records (2) Other Tools/Metrics Report Criteria First Name: Virgilio Last Name: Manuel : 1960 Linked Records ? Name: Virgilio Jackson : 1960 ID: [id number] Gender: Male Address: [address] [place], [place] [id number] Name: Virgilio Jackson : 1960 ID: [id number] Gender: Male Address: [address] [place], [place] [id number] Report generated on 04/29/2023. Report Date Range: 04/29/2022 - 04/29/2023 PDF ReportExportState Indicators (0) Details RX Summary Summary Total Prescriptions 4 Total Private Pay 0 Total Prescribers 3 Total Pharmacies 2 Narcotics (excluding Buprenorphine) Current MME/day 0.00 30 Day Avg MME/day 0.00 Current Qty 0 Buprenorphine Current mg/day 0.00 30 Day Avg mg/day 0.00 Current Qty 0 UNINTENTIONAL OVERDOSE RISK SCORE MODEL How should I use this information? [id number] NARX SCORES NARCOTICS 220 ACTIVE RX 0 SEDATIVES 100 ACTIVE RX 0 STIMULANTS 000 ACTIVE RX 0 [place] CONTRIBUTING FACTORS TO OVERDOSE RISK SCORE MODEL Greater than six dispensations No Benzo - Narcotics overlap 0 Days Number of high risk scripts 0 Number of pharmacies where narcotics/sedatives/stimulants filled 2 Total days supply of short-acting drugs 17 i Prescriptions Total: 4 Private Pay: 0 Showing 1-4 of 4 Items View 15 Items 1 of 1 Filled Written Sold ID Drug QTY Days Prescriber RX # Dispenser Refill Daily Dose* Pymt Type HEALTH DIAGNOSTICS TEACHER 12/17/2022 12/17/2022 12/17/2022 1 Hydromorphone 2 Mg Tablet 30.00 7 Montes Joe [id number] Cob (3743) 0/0 42.86 MME Comm Ins [place] 10/29/2022 10/29/2022 11/04/2022 1 Hydromorphone 2 Mg Tablet 36.00 6 Ja Gut [id number] Cob (3743) 0/0 60.00 [place] 10/22/2022 10/22/2022 2 Hydromorphone 2 Mg Tablet 36.00 4 Al Edw [id number] Nor (1997) 0/0 90.00 MME Other [place] 05/28/2022 05/28/2022 05/28/2022 1 Gabapentin 300 Mg Capsule 90.00 30 Ja Gut [id number] Cob (3743) 0/0Comm Ins [place] Providers Total: 3 Showing 1-3 of 3 Items View 15 Items 1 of 1 Name Address City State Zipcode Phone Julien Masseyh [address] [facility] [address] [facility] [address] [facility] [address] [place] [address] [facility] [id number] Monica Sigifredo [address] [facility] [address] Showing 1-3 of 3 Items View 15 Items 1 of 1 Pharmacies Total: 2 Showing 1-2 of 2 Items View 15 Items 1 of 1 Name Address [facility] Zipcode Phone [phone] [facility] [phone] [facility] ([facility]) [address] [place] [address] As a proxy delegate, I have queried the [place] and/or [place] Prescription Monitoring Program for this patient and provided the clinician with the above information for the preceding 12 months. Viktor Thurman RT.R 04/29/2023 12:26 PM YTICAL LAB TECHNICIAN * Aysha Brambila LPN - 04/30/2023 9:15 AM CST Reason for visit: Post op: 10/20/22 AP fusion L4-S1 with instrumentation L3- pelvis, RHW L3-5 ([facility]) Symptoms: Patient states increase in mid back pain without radiation since last seen- constant. Denies any N/T/W in legs/feet Pain Score: 5/10 Imaging/Location/ Date/ RONAN: 04/17/23 2VL done at [facility] Injections: Location: Relief: Physical Therapy: None following [...] Work Comp: no Date: MVA: no Date: Other Spinal Treatments/ Procedures: YTICAL LAB TECHNICIAN documented in this encounter Plan of Treatment Scheduled Orders Name Type Priority Associated Diagnoses Orde r Schedule CT SPINE LUMBAR W/O CON Imaging Routine S/P lumbar fusion Lumbar spine pain Lumbar radiculopathy Expected: 05/01/2023 (Approximate), Expires: 07/30/2023 documented as of this encounter Visit Diagnoses Diagnosis S/P lumbar fusion- Primary Arthrodesis status Lumbar spine pain Lumbago Lumbar radiculopathy Thoracic or lumbosacral neuritis or radiculitis, unspecified documented in this encounter Care Teams Hooker Laster Relationship Specialty Start Date End Date Clinic, No Primary PCP - General 08/27/22 Clinic, No Primary PCP - Primary Care Clinic 08/27/22 documented as of this encounter
--- OUTSIDE RECORDS SUMMARY | 2023-07-29 09:08 | XMS_ITS | Clinical Summary ---
Author Name Unknown Organization [facility] Address [place], [place] [address] Care Team Providers Care Manager Research Development Name Role Phone Stoney Jo MD Primary Care Provid er Allergies Active Allergy Reactions Criticality Noted Date Comments Bee Venom Protein (Honey Bee) Anaphylaxis High 06/04/2015 Lisinopril Other - Describe In Comment Field 03/11/2022 Itchy throat Penicillins Edema,Angioedema 07/16/2006 Swelling of lips and tongue Cerner Listed reactions Other reaction(s): numbness in lips and tongue Medications Medication Sig Dispensed Refills Start Date End Date Status EPINEPHrine (EPIPEN) 0.3 mg/0.3 mL auto-injector ONE INJECTION DIRECTED FOR ANAPHYLAXIS 12/23/2021 Active calcium citrate (CITRACAL) 200 mg (950 mg) tabletIndications:S /P lumbar fusion Take 1 tablet by oral route 2 times every day. 60 Tablet 11 03/05/2022 Active ergocalciferol (VITAMIN D2; DRISDOL) 50,000 unit capsuleIndications: S/P lumbar fusion Take 1 capsule by oral route 1 time every week. 12 Capsule 4 03/05/2022 Active hguvpfod-glj-PF-lyc open-lutein (Centrum Silver Men) 300-600-300 mcg tab Take 1 Tablet by mouth once daily. 06/25/2021 Active acetaminophen (TYLENOL EXTRA STRGTH) 500 mg tabletIndications:L umbar radiculopathy,S/P lumbar and lumbosacral fusion by anterior technique,S/P lumbar fusion Take 2 Tablets (1,000 mg) by mouth every 6 hours. Max acetaminophen dose: 4000mg in 24 hrs. 100 Tablet 03/14/2022 Active methocarbamoL (ROBAXIN) 750 mg tabletIndications:L umbar radiculopathy Take 1 Tablet (750 mg) by mouth every 6 hours if needed for Muscle Spasm. 80 Tablet 2 04/08/2022 Active gabapentin (NEURONTIN) 300 mg capsuleIndications: Cervical radiculopathy,Cervi george pain Take 1 Capsule (300 mg) by mouth three times daily. 90 Capsule 05/28/2022 Active losartan (COZAAR) 50 mg tablet Take 50 mg by mouth once daily. 08/02/2022 Active Active Problems Problem Noted Date Diagnosed Date HTN (hypertension) 03/12/2022 Right kidney stone 06/17/2020 Paroxysmal atrial fibrillation Spondylolisthesis of lumbar region Family History Medical History Relation Name Comments Hypertension Brother Lung cancer Brother Hypertension Father Diabetes Sister Relation Name Status Comments Brother Father Sister Social History Tobacco Use Types Packs/Day Years Used Date Smoking Tobacco: Never Smokeless Tobacco: Never Alcohol Use Standard Drinks/Week Comments Yes 0 (1 standard drink = 0.6 oz pur e alcohol) few beers per week Social Connections Answer Date Recorded Frequency of Communication with Friends and Fami ly Not on file 04/13/2021 Financial Resource Strain Answer Date R ecorded Difficulty of Paying Living Expenses Not on file 04/13/2021 Difficulty of Paying Living Expenses Not on file 04/13/2021 Sex and Gender Information Value Date Recorded Sex Assigned at Not on file Gender Identity Not on file Sexual Orientation Not on file Obstetrics History Last Filed Vital Signs Vital Sign Reading Time Taken Comments Blood Pressure 142/80 05/07/2022 4:23 PM DIGITAL PRODUCTION MANAGER Pulse 100 05/07/2022 4:23 PM DIGITAL PRODUCTION MANAGER Temperature 36.9 ??C (98.5 ??F) 03/14/2022 7:58 AM CS T Respiratory Rate 16 03/14/2022 7:58 AM DIGITAL PRODUCTION MANAGER Oxygen Saturation 99% 05/07/2022 4:23 PM DIGITAL PRODUCTION MANAGER Inhaled Oxygen Concentration - - Weight 90.7 kg (200 lb) 08/11/2022 11:58 AM CDT Height 175.3 cm (5' 9) 08/11/2022 11:58 AM CDT Body Mass Index 29.53 08/11/2022 11:58 AM CDT Plan of Treatment Health Maintenance Due Date Last Done Comments Tdap 1969 Depression screening for age 12+ 1970 HIV for age 15-65 1973 Hepatitis C screening for ag e 18-79 1976 Tetanus booster 1978 Colonoscopy through age 75 06/27/2003 Lipids for age 45-75 06/27/2003 Zoster (shingles) series for age 50+ (1 of 2) 2008 COVID-19 vaccine series (1 - 2022-24 season) 2022 Pneumococcal series for age 65+ (1 of 1 - PCV) 06/27/2023 BMI (ht and wt on same day) for age 18+ 08/12/2023 08/11/2022, 06/27/2022, 05/08/2022, Additional history exists Influenza for age 65+ 12/13/2023 Medical Devices Implanted Type Area Show Host/Hostess Device Identifier Shelf Expiration Date Model / Serial / Lot Bone Matrix 5cc Stimulan Kit Rapid Cure - [id number] Implanted:Qty: 1 on 03/12/2022 by Benny Dalton MD at [facility] N/A: Lumbar Vertebrae [employer] 08/10/2024 [id number] / / [id number] 7.5 X 50 Voyager Screw Implanted:Qty: 1 on 03/12/2022 by Benny Dalton MD at [facility] N/A: Lumbar Vertebrae Medtronic [id number] / / Voyager Set Screws Implanted:Qty: 5 on 03/12/2022 by Benny Dalton MD at [facility] N/A: Lumbar Vertebrae Medtronic [id number] / / 60mm Capped Geovanni Implanted:Qty: 2 on 03/12/2022 by Benny Dalton MD at [facility] N/A: Lumbar Vertebrae Medtronic [id number] / / Bone Matrix Infuse Bmp - [id number] Implanted:Qty: 1 on 03/12/2022 by Benny Dalton MD at [facility] N/A: Lumbar Vertebrae Medtronic Spine/Ortho 04/13/2024 [id number] / / [id number] Bone Matrix 10cc Progenix Plus Putty Db - [id number] Implanted:Qty: 1 on 03/12/2022 by Benny Dalton MD at [facility] N/A: Lumbar Vertebrae Medtronic Spine/Ortho 09/04/2023 [id number] / [id number] / Bone 1-4mm 30cc Medtronic Chips Canclls Freeze Dried - [id number] Implanted:Qty: 1 on 03/12/2022 by Benny Dalton MD at [facility] N/A: Lumbar Vertebrae Medtronic Spine/Ortho 01/21/2026 [id number] / [id number] / [id number] Nanolock Endoskeleton Tas Implant 16mm Implanted:Qty: 1 on 03/12/2022 by Benny Dalton MD at [facility] N/A: Lumbar Vertebrae Medtronic Spine/Ortho 11/05/2025 [id number] / / [id number] Description:Implanted anteri or lumbar spine L3-4 Nanolock Surface [employer] Mmn Endoskeleton Tas Implant 16mm Implanted:Qty: 1 on 03/12/2022 by Benny Dalton MD at [facility] N/A: Lumbar Vertebrae Medtronic 11/26/2025 [id number] / / [id number] 5.5 X 25 Titan Screw Implanted:Qty: 5 on 03/12/2022 by Benny Dalton MD at [facility] N/A: Lumbar Vertebrae Medtronic [id number] / / 6.5 X 25 Titan Screw Implanted:Qty: 1 on 03/12/2022 by Benny Dalton MD at [facility] N/A: Lumbar Vertebrae Medtronic [id number] / / 7.5 X 55mm Voyager Screw Implanted:Qty: 4 on 03/12/2022 by Benny Dalton MD at [facility] N/A: Lumbar Vertebrae Medtronic [id number] / / Advance Directives * Full Code (Latest Code Status on File) Date Activated Date Inactivated Comments 03/14/2022 8:54 AM 03/14/2022 3:56 PM Question Answer Comments Code Status Discussion: Reviewed Preferences * Full Code Date Activated Date Inactivated Comments 03/12/2022 5:35 AM 03/14/2022 8:54 AM Question Answer Comments Code Status Discussion: Unable to Assess Preferences, Provider to review later * Full Code Date Activated Date Inactivated Comments 06/17/2020 8:23 PM 06/18/2020 12:49 PM Question Answer Comments Code Status Discussion: DiscussedPer Existing Or farrah * Full Code Date Activated Date Inactivated Comments 01/12/2020 11:42 AM 01/13/2020 12:03 PM Discussed when consent for ablation obtained Question Answer Comments Code Status Discussion: Not Discussed Care Teams Manager Research Development Relationship Specialty Start Date End Date Stoney Jo MD [address] [place] [address] PCP - General Family Practice 01/03/20
--- OUTSIDE RECORDS SUMMARY | 2023-07-29 09:08 | XMS_ITS | Encounter Summary ---
Author Name Unknown Organization [facility] h Address [address] [place] [address] Care Team Providers Care Supervisor Stave Cutting Name Role Phone Clinic, No Primary Primary Care Provider Unavail able Clinic, No Primary Unavailable Unavailable Encounter Details Date Type Department Care Team (Late st Contact Info) Description 04/20/2023 Order-Scan [facility] (an affiliate of [facility]) [address] [place] [id number] Reported, Patient Social History Tobacco Use Types [...] Date/Time Associated Diagnosis Comments SCANNED RADIOLOGY Routine 04/17/2023 9:46 AM ONLINE ADVERTISING MANAGER documented in this encounter Results * SCANNED RADIOLOGY (04/17/2023 9:46 AM ONLINE ADVERTISING MANAGER) Anatomical Region Laterality Modality Other Patient Reported XRAY ORDERABLE documented in this encounter Visit Diagnoses Not on filedocumented in this encounter Care Teams Supervisor Stave Cutting Relationship Specialty Start Date End Date Clinic, No Primary PCP - General 08/27/22 Clinic, No Primary PCP - Primary Care Clinic 08/27/22 documented as of this encounter
--- OUTSIDE RECORDS SUMMARY | 2023-07-29 09:08 | XMS_ITS ---
Author Name Unknown Organization [facility] Address [address] [place] [id number] Care Team Providers Care Gopherman Name Role Phone Clinic, No Primary Primary Care Provider Unavail able Clinic, No Primary Unavailable Unavailable Transitional Care Management Status:Closed (Closed) Start date:10/22/2022 End date:06/03/2023 Close reason:Older then 14 days Related social determinants of health:Social Connections, Alcohol Use, Tobacco Use, Financial Resource Strain, Depression, Stress, Physical Activity, Transportation Needs Overview Transitional Care Management (TCM) is a [facility] Program designed to decrease risk and increase continuity of care for patients after discharge. Continued Care and Services Coordination
--- NOTE | 2023-07-29 09:15 | FL_ITS ---
Patient: VICKI CAVAZOS Facility:?[facility] Patient ID:?[id number] Site Patient ID:?[id number]. Site :?[id number] Study:?XRay-Hip Left Injection under fluoro DrKiara to READ-07/29/2023 10:05:07 AM Ordering Physician:ASIA Final Report: Indication: Left hip pain Comparison: 03/30/2023 Procedure : Informed consent was obtained. The site was marked. Time-out was performed. The skin of the left hip was cleansed with ChloraPrep. A sterile drape was placed. 8 cc of 1 percent lidocaine was administered for superficial anesthesia. Subsequently a 22 gauge spinal needle was introduced into the left hip joint under intermittent fluoroscopic guidance. Subsequently 7 cc 1 percent lidocaine and 2 cc 40 milligrams/cc Depo-Medrol then injected into the left hip joint. The needle was removed and hemostasis achieved with direct pressure. A dressing was placed. The patient tolerated the procedure well without immediate complication. Total fluoroscopy time 12 seconds. Impression: Successful fluoroscopically guided left hip injection with 80 milligrams of Depo-Medrol. Dictated by Ta Henderson MD @ 07/29/2023 11:59:28 AM Signed by:?Ta Henderson MD @07/29/2023 11:59:28 AM (Electronic Signature)
== END 2023-07-29 08:58 | disposition home or self-care (01) ==
PROVIDERS: PCP Family Medicine; Visit Provider Orthopaedic Surgery Sports Medicine
DX: M16.12 Unilateral primary osteoarthritis, left hip (principal); M25.552 Pain in left hip
CPT/HCPCS: 20610; 77002; Q9966

== ENCOUNTER 2023-12-04 07:52 | Outpatient (CLI) | payer MEDICARE, BC, SELFPAY ==
--- NOTE | 2023-12-04 08:15 | CRLHL7_ITS ---
For Patients: As a result of the Century Cures Act, medical imaging exams and procedure reports are released immediately into your electronic medical record. You may view this report before your referring provider. If you have questions, please contact your health care provider. Indication: Left hip pain Comparison: 07/29/2023 Procedure : Informed consent was obtained. The site was marked. Time-out was performed. The skin of the left hip was cleansed with ChloraPrep. A sterile drape was placed. 8 cc of 1 percent lidocaine was administered for superficial anesthesia. Subsequently a 22 gauge spinal needle was introduced into the left hip joint under intermittent fluoroscopic guidance. Subsequently 7 cc 1 percent lidocaine and 2 cc 40 milligrams/cc Depo-Medrol then injected into the left hip joint. The needle was removed and hemostasis achieved with direct pressure. A dressing was placed. The patient tolerated the procedure well without immediate complication. Total fluoroscopy time 5 seconds. Impression: Successful fluoroscopically guided left hip injection with 80 milligrams of Depo-Medrol. Dictated by Ta Henderson MD @ 12/04/2023 2:44:51 PM (Electronically Signed)
== END 2023-12-04 07:53 | disposition home or self-care (01) ==
LOC: RAD 07:53
PROVIDERS: PCP Family Medicine; Visit Provider Orthopaedic Surgery Sports Medicine
DX: M16.12 Unilateral primary osteoarthritis, left hip (principal); M25.552 Pain in left hip
CPT/HCPCS: 20610; 77002; J1010; Q9966

== ENCOUNTER 2024-03-09 10:18 | Outpatient (RCR) | payer MEDICARE, BC, SELFPAY | END 2024-03-09 11:41 | disposition home or self-care (01) | PROVIDERS: PCP Family Medicine; Visit Provider Orthopaedic Surgery Sports Medicine | DX: M16.12 Unilateral primary osteoarthritis, left hip (principal); Z96.642 Presence of left artificial hip joint; M25.552 Pain in left hip; M25.652 Stiffness of left hip, not elsewhere classified; Z51.89 Encounter for other specified aftercare | CPT/HCPCS: 97110; 97161 ==

== ENCOUNTER 2024-03-18 06:02 | Day surgery (SDC) | payer MEDICARE, BC, SELFPAY ==
[2024-03-18] VITALS (20 sets, daily range): BP systolic 93–132; BP diastolic 66–87; PULSE 61–79; RESP 14–16; TEMP 36.2–36.6; O2SAT 88–99; BMI 30.8
--- OUTSIDE RECORDS SUMMARY | 2024-03-18 06:07 | XMS_ITS | Clinical Summary ---
Author Organization [facility] Address [address] [place] [address] Care Team Providers Care Customer Acquisition Specialist Name Role Phone Clinic, No Primary Unavailable Unavailable Unknown, Primary Care Provider Unavailabl e Allergies Active Allergy Reactions Criticality Noted Date Comments Bee Venom Protein (Honey Bee) Anaphylaxis High 06/04/2015 Lisinopril Other 03/11/2022 Itchy throat Penicillins Swelling, lips/tongue High 07/16/2006 Swelling of lips and tongue Cerner Listed reactions Other reaction(s): numbness in lips and tongue Other Reaction(s): Anaphylaxis Medications Losartan (COZAAR) 100 mg oral tablet Take 1 tablet (100 mg) by mouth Daily. 3 Active EPINEPHrine (EPIPEN) 0.3 mg/0.3 mL Injection auto-injector ONE INJECTION DIRECTED FOR ANAPHYLAXIS 2 Active Calcium Citrate 200 mg (950 mg) oral Tab Take 1 tablet by oral route 2 times every day. 2 Active acetaminophen (TYLENOL) 500 mg oral tablet Take 2 tablets (1,000 mg) by mouth once daily. 2 Active magnesium 250 mg oral Tab Take 1 tablet (250 mg) by mouth twice a day. Active cholecalciferol , vitamin D3, (VITAMIN D3 ORAL) Take 5,000 Int'l Units/day by mouth once daily. Active calcium carbonate (TUMS) 200 mg calcium (500 mg) oral chew tab Chew 1 tablet (500 mg) twice a day with breakfast and dinner. 180 tablet 2 3 Active oxyCODONE, immediate release, (ROXICODONE) 5 mg oral tablet Take 1-2 tablets (5-10 mg) by mouth every 4 (four) hours as needed. 36 tablet 02/04/2024 3:41 PM CDT 4 Active methocarbamoL (ROBAXIN) 750 mg oral tablet Take 1 tablet (750 mg) by mouth every 6 (six) hours as needed. 40 tablet 02/04/2024 3:41 PM CDT 4 Active Active Problems Problem Noted Date Diagnosed Date Peritonsillar abscess 02/02/2024 Pain from implanted hardware, sequela 02/02/2024 Herniated lumbar intervertebral disc 12/04/2022 Overview (12/04/2022): L2-3 Low back pain 12/04/2022 Lumbar radiculopathy 10/20/2022 Paroxysmal atrial fibrillation 10/20/2022 Essential hypertension 10/20/2022 Bulging of intervertebral disc between L4 and L5 02/27/2022 Right kidney stone 06/17/2020 Encounters Date Type Department Care Team Description 02/17/2024 1:15 PM PHYSICIAN INTERNIST Office Visit [facility] (an [facility]) [address] [place] [address] Bhavesh Mckay PA-C S/P hardware removal (Primary Dx) 02/17/2024 Travel 02/05/2024 1:30 PM CDT Office Visit [facility] (an affiliate of [facility]) [address] [place] [id number] Bhavesh Mckay PA-C S/P hardware removal (Primary Dx) 02/05/2024 Travel 02/02/2024 10:30 AM CDT - 02/02/2024 12:10 PM CDT Surgery [facility] Operating Room [address] [address] Benny Dalton MD HARDWARE REMOVAL L3- PELVIS BILATERAL WITH EXCEPTION OF S1 SCREW 02/02/2024 8:58 AM CDT - 02/04/2024 4:15 PM CDT Hospital Encounter [facility]5 [address] [facility] [place] [address] Benny Dalton MD Pain from implanted hardware, sequela Discharge Disposition: Returning Home/Self Care 02/02/2024 Travel 01/28/2024 Travel 01/21/2024 9:10 AM CDT Office Visit [facility] (an [facility]) [address] [place] [phone] Benny Dalton MD Mechanical breakdown of internal fixation device of vertebrae, initial encounter (HCC) (Primary Dx); Postsurgical arthrodesis status 01/21/2024 Travel 01/11/2024 Order-Scan [facility] (an [facility]) [address] [place] [id number] Reported, Patient from Last 3 Months Social History Tobacco Use Types Packs/Day Years Used Date Smoking Tobacco: Never Smokeless Tobacco: Never Tobacco Cessation:Counseling Given: No Alcohol Use Standard Drinks/Week Comments Yes 0 (1 standard drink = 0.6 oz pur e alcohol) beer socially Miew Utilities Answer Date Recorded In the past 12 months has [facility] [employer], gas, oil, or water [employer] threatened to shut off services in your home? No 02/02/2024 Humiliation, Afraid, Rape, and Kick questionnair e Answer Date Recorded Within the last year, have y ou been afraid of your partner or ex-partner? No 02/02/2024 Within the last year, have y ou been humiliated or emotionally abused in other ways by your partner or ex-partner? No Within the last year, have y ou been kicked, hit, slapped, or otherwise physically hurt by your partner or ex-partner? No 02/02/2024 Within the last year, have y ou been raped or forced to have any kind of sexual activity by your partner or ex-partner? No 02/02/2024 Hunger Vital Sign Answer Date Recorded Within the past 12 months, y ou worried that your food would run out before you got the money to buy more. Never true 02/02/20 24 Within the past 12 months, t he food you bought just didn't last and you didn't have money to get more. Never true 02/02/2024 PRAPARE - Transportation Answer Date Re corded In the past 12 months, has l ack of transportation kept you from medical appointments or from getting medications? No 01/12 In the past 12 months, has l ack of transportation kept you from meetings, work, or from getting things needed for daily living? No 02/02/2024 Housing Stability Vital Sign Answer Yomi e Recorded In the last 12 months, was t here a time when you were not able to pay the mortgage or rent on time? No 02/02/2024 In the past 12 months, how m any times have you moved where you were living? 0 02/02/2024 At any time in the past 12 m [facility], were you homeless or living in a prison (including now)? No 02/02/2024 Sex and Gender Information Value Date Recorded Sex Assigned at Not on file Legal Sex Male 12:01 PM CDT Gender Identity Not on file Sexual Orientation Not on file Last Filed Vital Signs Vital Sign Reading Time Taken Comments Blood Pressure 110/71 02/04/2024 4:06 PM CDT Pulse 69 02/04/2024 4:06 PM CDT Temperature 36.9 C (98.4 F) 02/04/2024 4:06 PM CDT Respiratory Rate 19 02/04/2024 4:06 PM CDT Oxygen Saturation 97% 02/04/2024 4:06 PM CDT Inhaled Oxygen Concentration - - Weight 95.3 kg (210 lb) 02/17/2024 1:40 PM PHYSICIAN INTERNIST Height 176.5 cm (5' 9.5) 02/17/2024 1:40 PM PHYSICIAN INTERNIST Body Mass Index 30.57 02/17/2024 1:40 PM PHYSICIAN INTERNIST Plan of Treatment Health Maintenance Due Date Last Done Comments Colonoscopy 1960 Hepatitis C Screening 1960 Lipid Screening 1960 Medicare Wellness Visit 1960 Depression Assessment (PHQ-2) 06/27/1959 Zoster Vaccine (1 of 2) 2008 Pneumococcal 65+ (1 of 1 - PCV) 06/27/2023 COVID-19 Vaccine ( season) 2023 03/25/2021, 07/27/2020, 06/29/2020 Influenza Vaccine (#1) 2023 05/03/2016 Yearly Review of HCD 01/21/2025 01/22/2024, 09/12/19 23 Diabetes Screening 10/21/2025 10/21/2022 Adult Tetanus Booster 09/05/2027 09/04/2017, 014 RSV Vaccines (1 - 1-dose 75+ series) 2033 Medical Devices Implanted Type Area Supervisor Lace Tearing Device Identifier Shelf Expiration Date Model / Serial / Lot Morton Paste Plus 5cc - [id number] Implanted:Qty : 1 on 10/20/2022 by Benny Dalton MD at [facility] Bone N/A: Spine Lumbar Med[employer]onic Inc 11/21/2023 [id number] / [id number] / Cancellous Chips 30cc - [id number] Implanted:Qty : 1 on 10/20/2022 by Benny Dalton MD at [facility] Bone N/A: Spine Lumbar Med[employer]onic Inc 08/05/2026 [id number] / [id number] / Infuse Sm - [id number] Implanted:Qty : 1 on 10/20/2022 by Benny Dalton MD at [facility] Prosthetic Implant Non-Specific N/A: Spine Lumbar Medtronic Sofamor Danek 04/13/2024 [id number] / / [id number] 25mm Divergence Screw Implanted:Qty : 2 on 10/20/2022 by Benny Dalton MD at [facility] Spine Lumbar [id number] / / [id number] Xlg 17mm Titan Tas Implanted:Qty : 1 on 10/20/2022 by Benny Dalton MD at [facility] Spine Lumbar Med[employer]onic Inc [id number] / / [id number] Explanted Type Area Supervisor Lace Tearing Device Identifier Shelf Expiration Date Model / Serial / Lot Geovanni 120mm 5.5mm Ccm Curv - [id number] Implanted:Qty: 2 on 10/20/2022 by Benny Dalton MD at [facility] Explanted:Qty: 2 on 02/02/2024 by Benny Dalton MD at [facility] Geovanni N/A: Spine Lumbar Med[employer]onic Inc [id number] / / Set Screw Solera Brk Off - [id number] Implanted:Qty: 8 on 10/20/2022 by Benny Dalton MD at [facility] Explanted:Qty: 8 on 02/02/2024 by Benny Dalton MD at [facility] Screw/An chor N/A: Spine Lumbar Med[employer]onic Inc [id number] / / Scr Spnl 8.5x70mm Multiaxial - [id number] Implanted:Qty: 2 on 10/20/2022 by Benny Dalton MD at [facility] Explanted:Qty: 2 on 02/02/2024 by Benny Dalton MD at [facility] Screw/An chor N/A: Spine Lumbar Med[employer]onic Inc [id number] / / Montes Coated Screw Implanted:Qty: 2 on 10/20/2022 by Benny Dalton MD at [facility] Explanted:Qty: 2 on 02/02/2024 by Benny Dalton MD at [facility] Screw/An chor N/A: Spine Lumbar 11/25/2022 [id number] / / [id number] Procedures Procedure Name Priority Date/Time Associated Diagnosis Comments EXTRA TUBE PST Routine 02/03/2024 10:53 AM CDT HEMOGLOBIN STAT 02/03/2024 10:52 AM CDT XR C-ARM SPINE STAT 02/02/2024 12:26 PM CDT INTUBATION Routine 02/02/2024 10:59 AM CDT REMOVE SPINE FIX DEV,POST SGM* 02/02/2024 10:50 AM CDT Mechanical breakdown of internal fixation device of vertebrae, initial encounter (HCC) Postsurgical arthrodesis status POCT GLU METER STAT 02/02/2024 9:20 AM CDT SCANNED RADIOLOGY Routine 01/08/2024 8:3 3 AM CDT BASIC METAB PROFILE Routine 10/21/2022 4 :05 PM CDT from Last 3 Months or Most Recently Relevant to Health Maintenance Results * Extra Tube PST (Lab Use Only) (02/03/2024 10:53 AM CDT) Blood 02/03/2024 10:5 3 AM CDT 02/03/2024 10:58 AM CDT us Jennifer Hirsch MD CHEMISTRY ORDERABLE Final R esult Performing Organization Address City/[facility]/ZIP Co de Phone Number [facility] [address] [place] [address] * (ABNORMAL) Hemoglobin (02/03/2024 10:52 AM CDT) Hemoglobin 13.7(L) 14.0 - 18.0 gm/dL 02/03/2024 11:04 AM CDT [facility] Blood 02/03/2024 10:5 2 AM CDT 02/03/2024 10:58 AM CDT us Jennifer Hirsch MD HEMATOLOGY ORDERABLE Final Result Performing Organization Address City/[facility]/ZIP Co de Phone Number [facility] [address] [place], [place] [address] * XR C-ARM SPINE (02/02/2024 12:26 PM CDT) Anatomical Region Laterality Modality Computed Radiogr aphy 02/02/2024 1:53 PM CDT Impressions 02/02/2024 1:55 PM CDT IMPRESSION: Digital spot views findings demonstrate single view with surgical hardware at the level of the sacrum and lumbar spine.. Please refer to the surgeon's operative report for full details. Signed by Dr. Woody Hays Narrative 02/02/2024 1:55 PM CDT EXAM: Intraoperative fluoroscopy Clinical [id number] surgery Intraoperative fluoroscopy was utilized. Total 3 seconds of fluoroscopy time was utilized. Procedure Note Woody Hays MD - 02/02/2024 EXAM: Intraoperative fluoroscopy Clinical [id number] surgery Intraoperative fluoroscopy was utilized. Total 3 seconds of fluoroscopytime was utilized. IMPRESSION IMPRESSION: Digital spot views findings demonstrate single view withsurgical hardware at the level of the sacrum and lumbar spine.. Please refer to the surgeon's operative report for full details. Signed by Dr. Woody Hays Benny Dalton MD XRAY ORDERABLE Final Res ult * Intubation (02/02/2024 10:59 AM CDT) Narrative Julien Valverde RN - 02/02/2024 10:59 AM CDT Julien Valverde RN 02/02/2024 11:13 AM Intubation Location: OR Anesthesia Type: general Emergent? not emergent Procedural Details: Atraumatic, Dentition Intact, Preox, Pharynx Clear and Video Laryngoscopy Entry Site: Oral Laryngoscope size: 4 Laryngoscope type: Glidescope Tube size: 4.0 Maskability: easy Ease: easy Cormack-Lehane: grade I - visualization of entire laryngeal aperture (95%) Tube type: Single Lumen and Cuffed Performed by: Julien Valverde RN, SRNA Post-procedure assessment: BBS and EtCO2 + Cuff inflated: yes ETT to lip: 24 cm Elective glidescope intubation due to previous cervical pathology. Easy intubation. Neck aligned and neutral. Rob Gonzalez MD AN BLOCKS Final Result * (ABNORMAL) POCT Glucose Meter (02/02/2024 9:20 AM CDT) GLUCOSE WB METER 101(H) 60 - 100 mg/dL 02/02/2024 9:47 AM CDT [facility] Blood 02/02/2024 9:20 AM CDT 02/02/2024 9:47 AM CDT Benny Dalton MD LAB POINT OF CARE TEST RE SULTS Final Result [facility] [address] [place] [address] * SCANNED RADIOLOGY (01/08/2024 8:33 AM CDT) Anatomical Region Laterality Modality Other us Patient Reported XRAY ORDERABLE Final Result * (ABNORMAL) Basic Metab Profile (10/21/2022 4:05 PM CDT) Sodium 133(L) 136 - 145 mmol/L ATELLICA ANALYZER 10/21/2022 5:19 PM CDT [facility] Potassium 3.8 3.4 - 5.1 mmol/L ATELLICA ANALYZER 10/21/2022 5:19 PM CDT [facility] Chloride 100 98 - 108 mmol/L ATELLICA ANALYZER 10/21/2022 5:19 PM T [facility] Carbon Dioxide 30 20 - 31 mmol/L ATELLICA ANALYZER 10/21/2022 5:19 PM T [facility] BUN (Urea Nitro) 12 9 - 23 mg/dL ATELLICA ANALYZER 10/21/2022 5:19 PM T [facility] Creatinine 0.91 0.60 - 1.10 mg/dL ATELLICA ANALYZER 10/21/2022 5:19 PM T [facility] Est GFR (CKD-EPI) >60.00 >60.00 mL/min/1. 73m2 ATELLICA ANALYZER 10/21/2022 5:19 PM T [facility] Comment:Calculation based on the Chronic Kidney Disease Epidemiology Collaboration (CKD-EPI) equation refit without adjustment for race. Glucose 116(H) 74 - 106 mg/dL ATELLICA ANALYZER 10/21/2022 5:19 PM CDT [facility] Calcium, Serum 8.5(L) 8.7 - 10.4 mg/dL ATELLICA ANALYZER 10/21/2022 5:19 PM T [facility] Anion Gap 3.0 0.0 - 15.0 mmol/L ATELLICA ANALYZER 10/21/2022 5:19 PM [facility] Blood Venipuncture / Unknown 10/21/2022 4:05 PM CDT 10/21/2022 4:53 PM CDT us Benny Dalton MD CHEMISTRY ORDERABLE Final Result [facility] [address] [place] [address] from Last 3 Months or Most Recently Relevant to Health Maintenance Insurance [facility] PART A & B [facility] [place] [address] MEDICARE PART A & B Advance Directives For more information, please contact: [phone] * Full Code (Latest Code Status on File) Date Activated Date Inactivated Comments 02/02/2024 2:20 PM 02/04/2024 11:32 PM Question Answer Comments How was code status determined? Previous Docgato deal * Full Code Date Activated Date Inactivated Comments 02/02/2024 8:50 AM 02/02/2024 12:35 PM Question Answer Comments How was code status determined? Previous Documen tation * Full Code Date Activated Date Inactivated Comments 10/20/2022 5:26 PM 10/23/2022 1:10 AM Question Answer Comments How was code status determined? Patient * Full Code Date Activated Date Inactivated Comments 10/20/2022 5:42 AM 10/20/2022 1:13 PM Question Answer Comments How was code status determined? Previous Yasir deal Care Teams Customer Acquisition Specialist Relationship Specialty Start Date End Date Clinic, No Primary PCP - Primary Care Clinic 08/27/22 Md Ramy NO ADDRESS/PHONE/FAX AFFILIATED PCP - General 11/25/23
--- OUTSIDE RECORDS SUMMARY | 2024-03-18 06:08 | XMS_ITS | Encounter Summary ---
Author Organization [facility] Address [address] [place] [address] Care Team Providers Care Sessions Clerk Name Role Phone Clinic, No Primary Unavailable Unavailable Unknown, Primary Care Provider Unavailabl e Encounter Details Date Type Department Care Team (Latest Contact Info) Description 02/05/2024 Travel Social History Tobacco Use Types Packs/Day Years Used Date Smoking Tobacco: Never Smokeless Tobacco: Never Alcohol Use Standard Drinks/Week Comments Yes 0 (1 standard drink = 0.6 oz pur e alcohol) beer socially Area 1 Security Utilities Answer Date Recorded In the past 12 months has e electric, gas, oil, or water company threatened to shut off services in your [...] any time in the past 12 m [facility], were you homeless or living in a snf (including now)? No 02/02/2024 Sex and Gender Information Value Date Recorded Sex Assigned at Not on file Legal Sex Male 12:01 PM CDT Gender Identity Not on file Sexual Orientation Not on file documented as of this encounter Plan of Treatment Not on file documented as of this encounter Visit Diagnoses Not on filedocumented in this encounter Care Teams Sessions Clerk Relationship Specialty Start Date End Date Clinic, No Primary PCP - Primary Care Clinic 08/27/22 Unknown, NO ADDRESS/PHONE/FAX AFFILIATED PCP - General 11/25/23 documented as of this encounter
--- OUTSIDE RECORDS SUMMARY | 2024-03-18 06:08 | XMS_ITS | Referral Summary ---
Author Organization [facility] Address [address] [place] [address] Care Team Providers Care Manager Workers Compensation Name Role Phone Clinic, No Primary Unavailable Unavailable Unknown, Primary Care Provider Unavailabl e Encounters Date Type Department Care Team Description 02/17/2024 Travel 02/17/2024 1:15 PM ENTRY LEVEL SALES CONSULTANT Office Visit [facility] [place] [facility] (an affiliate of [facility]) [address] [place] [phone] Bhavesh Mckay PA-C S/P hardware removal (Primary Dx) 02/05/2024 Travel 02/05/2024 1:30 PM CDT Office Visit [facility] [place] [facility] (an affiliate of [facility]) [address] [place] [phone] Bhavesh Mckay PA-C S/P hardware removal (Primary Dx) 02/02/2024 8:58 AM CDT - 02/04/2024 4:15 PM CDT Hospital Encounter W5 [address] [place] [address] Benny Dalton MD Pain from implanted hardware, sequela Discharge Disposition: Returning Home/Self Care 02/02/2024 Travel 02/02/2024 10:30 AM CDT - 02/02/2024 12:10 PM CDT Surgery [facility] Operating Room [address] [facility] [place] [address] Benny Dalton MD HARDWARE REMOVAL L3- PELVIS BILATERAL WITH EXCEPTION OF S1 SCREW 01/28/2024 Travel 01/21/2024 Travel 01/21/2024 9:10 AM CDT Office Visit [facility] (an affiliate of [facility]) [address] [place] [address] Benny Dalton MD Mechanical breakdown of internal fixation device of vertebrae, initial encounter (HCC) (Primary Dx); Postsurgical arthrodesis status 01/11/2024 Order-Scan [facility]) [address] [place] [address] Reported, Patient from Last 3 Months Allergies Active Allergy [...] 0.6 oz pur e alcohol) beer socially [employer] Utilities Answer Date Recorded In the past 12 months has [employer], gas, oil, or water [employer] threatened to shut off services in your [...] any time in the past 12 m [facility], were you homeless or living in a detention (including now)? No 02/02/2024 Sex and Gender [...] 95.3 kg (210 lb) 02/17/2024 1:40 PM ENTRY LEVEL SALES CONSULTANT Height 176.5 cm (5' 9.5) 02/17/2024 1:40 PM ENTRY LEVEL SALES CONSULTANT Body Mass Index 30.57 02/17/2024 1:40 PM ENTRY LEVEL SALES CONSULTANT Plan of Treatment Not on file Medical Devices Implanted Type Area Early Morning Device Identifier Shelf Expiration Date Model / Serial / Lot Eden Paste Plus 5cc - [id number] Implanted:Qty : 1 on 10/20/2022 by Benny Dalton MD at [facility] Bone N/A: Spine Lumbar Med[employer] Inc 11/21/2023 [id number] / [id number] / Cancellous Chips 30cc - [id number] Implanted:Qty : 1 on 10/20/2022 by Benny Dalton MD at [facility] Bone N/A: Spine Lumbar Med[employer] Inc 08/05/2026 [id number] / [id number] / Infuse Sm - [id number] Implanted:Qty : 1 on 10/20/2022 by Benny Dalton MD at [facility] Prosthetic Implant Non-Specific N/A: Spine Lumbar Medtronic Sofamor Danek 04/13/2024 [id number] / / [id number] 25mm Divergence Screw Implanted:Qty : 2 on 10/20/2022 by Benny Dalton MD at [facility] Spine Lumbar [id number] / / [id number] Xlg 17mm Titan Tas Implanted:Qty : 1 on 10/20/2022 by Benny Dalton MD at [facility] Spine Lumbar Med[employer]onic Inc [id number] / / [id number] Explanted Type Area Early Morning Device Identifier Shelf Expiration Date Model / Serial / Lot Geovanni 120mm 5.5mm Ccm Curv - [id number] Implanted:Qty: 2 on 10/20/2022 by Benny Dalton MD at [facility] Explanted:Qty: 2 on 02/02/2024 by Benny Dalton MD at [facility] Geovanni N/A: Spine Lumbar Med[employer]onic Inc [id number] / / Set Screw Solera Brk Off - [id number] Implanted:Qty: 8 on 10/20/2022 by Benny Dalton MD at [facility] Explanted:Qty: 8 on 02/02/2024 by Benny Dalton MD at [facility] Screw/An chor N/A: Spine Lumbar Med[employer]onic Inc [id number] / / Scr Spnl 8.5x70mm Multiaxial - [id number] Implanted:Qty: 2 on 10/20/2022 by Benny Dalton MD at [facility] Explanted:Qty: 2 on 02/02/2024 by Benny Dalton MD at [facility] Screw/An chor N/A: Spine Lumbar Med[employer] Inc [id number] / / Montes Coated Screw Implanted:Qty: 2 on 10/20/2022 by Benny Dalton MD at [facility] Explanted:Qty: 2 on 02/02/2024 by Benny Dalton MD at [facility] Screw/An chor N/A: Spine Lumbar 11/25/2022 [id number] / / [id number] Procedures Procedure Name Priority Date/Time Associated Diagnosis [...] Hirsch MD CHEMISTRY ORDERABLE Final R esult [facility] [address] [place] [address] * (ABNORMAL) Hemoglobin (02/03/2024 10:52 AM CDT) Hemoglobin 13.7(L) 14.0 - 18.0 gm/dL 02/03/2024 11:04 AM CDT [facility] Blood 02/03/2024 10:5 2 AM CDT 02/03/2024 10:58 AM CDT Jennifer Hirsch MD HEMATOLOGY ORDERABLE Final Result [facility] [address] [place] [address] * XR C-ARM SPINE (02/02/2024 12:26 PM [...] 1:55 PM CDT EXAM: Intraoperative fluoroscopy Clinical [id number] surgery Intraoperative fluoroscopy was utilized. Total 3 seconds of fluoroscopy time was utilized. Procedure Note Woody Hays MD - 02/02/2024 EXAM: Intraoperative fluoroscopy Clinical [id number] surgery Intraoperative fluoroscopy was utilized. Total 3 seconds of fluoroscopytime was utilized. IMPRESSION IMPRESSION: Digital spot views findings demonstrate single view withsurgical hardware at the level of the sacrum and lumbar spine.. Please refer to the surgeon's operative report for full details. Signed by Dr. Woody Hays us Benny Dalton MD XRAY ORDERABLE Final Res [...] and Cuffed Performed by: Julien Valverde RN, [facility] Post-procedure assessment: BBS and EtCO2 + Cuff inflated: yes ETT to lip: 24 cm Elective glidescope intubation due to previous cervical pathology. Easy intubation. Neck aligned and neutral. us Rob Gonzalez MD AN BLOCKS Final Result * (ABNORMAL) POCT Glucose Meter (02/02/2024 9:20 AM CDT) Pathologist [facility] GLUCOSE WB METER 101(H) 60 - 100 mg/dL 02/02/2024 9:47 AM CDT [facility] Blood 02/02/2024 9:20 AM CDT 02/02/2024 9:47 AM CDT Benny Dalton MD LAB POINT OF CARE TEST RE SULTS Final Result [facility] [address] [place], [place] [id number] * SCANNED RADIOLOGY (01/08/2024 8:33 AM CDT) Anatomical Region Laterality Modality Other us Patient Reported XRAY ORDERABLE Final Result * (ABNORMAL) Basic Metab Profile (10/21/2022 4:05 PM CDT) Sodium 133(L) 136 - 145 mmol/L ATELLICA ANALYZER 10/21/2022 5:19 PM CDT [facility] Potassium 3.8 3.4 - 5.1 mmol/L ATELLICA ANALYZER 10/21/2022 5:19 PM CDT [facility] Chloride 100 98 - 108 mmol/L ATELLICA ANALYZER 10/21/2022 5:19 PM CDT [facility] Carbon Dioxide 30 20 - 31 mmol/L ATELLICA ANALYZER 10/21/2022 5:19 PM CDT [facility] BUN (Urea Nitro) 12 9 - 23 mg/dL ATELLICA ANALYZER 10/21/2022 5:19 PM CDT [facility] Creatinine 0.91 0.60 - 1.10 mg/dL ATELLICA ANALYZER 10/21/2022 5:19 PM CDT [facility] Est GFR (CKD-EPI) >60.00 >60.00 mL/min/1. 73m2 ATELLICA ANALYZER 10/21/2022 5:19 PM CDT [facility] Comment:Calculation based on the Chronic Kidney Disease Epidemiology Collaboration (CKD-EPI) equation refit without adjustment for race. Glucose 116(H) 74 - 106 mg/dL ATELLICA ANALYZER 10/21/2022 5:19 PM CDT [facility] Calcium, Serum 8.5(L) 8.7 - 10.4 mg/dL ATELLICA ANALYZER 10/21/2022 5:19 PM CDT [facility] Anion Gap 3.0 0.0 - 15.0 mmol/L ATELLICA ANALYZER 10/21/2022 5:19 PM CDT [facility] Blood Venipuncture / Unknown 10/21/2022 4:05 PM CDT 10/21/2022 4:53 PM CDT Benny Dalton MD CHEMISTRY ORDERABLE Final Result [facility] [address] [place] [address] from Last 3 Months or Most Recently Relevant to Health Maintenance Insurance [facility] [employer] [place] [place] [employer] MED[place] PART A & B [employer] [place] [employer] PART A & B Advance Directives For more information, please contact: [phone] * Full Code (Latest Code Status on File) Date Activated Date Inactivated Comments 02/02/2024 2:20 PM 02/04/2024 11:32 PM Question Answer Comments How was code status determined? Previous Documen tation * Full Code Date Activated Date Inactivated Comments 02/02/2024 8:50 AM 02/02/2024 12:35 PM Question Answer Comments How was code status determined? Previous Jeann nemesioion * Full Code Date Activated Date Inactivated Comments 10/20/2022 5:26 PM 10/23/2022 1:10 AM Question Answer Comments How was code status determined? Patient * Full Code Date Activated Date Inactivated Comments 10/20/2022 5:42 AM 10/20/2022 1:13 PM Question Answer Comments How was code status determined? Previous Yasir deal Care Teams Manager Workers Compensation Relationship Specialty Start Date End Date Clinic, No Primary PCP - Primary Care Clinic 08/27/22 Ramy, NO ADDRESS/PHONE/FAX AFFILIATED PCP - General 11/25/23
--- OUTSIDE RECORDS SUMMARY | 2024-03-18 06:08 | XMS_ITS | Encounter Summary ---
Author Organization [facility] Address [address] [place] [address] Care Team Providers Care Health Policy Nurse Name Role Phone Clinic, No Primary Unavailable Unavailable Unknown, Primary Care Provider Unavailabl e Reason for Visit * Reason Comments Post op check Encounter Details Date Type Department Care Team (Late st Contact Info) Description 02/05/2024 1:30 PM CDT Office Visit [facility] (an affiliate of [facility]) [address] [address] Bhavesh Mckay PA-C [address] [address] S/P hardware removal (Primary Dx) Social History Tobacco Use Types Packs/Day Years Used Date Smoking Tobacco: Never Smokeless Tobacco: Never Alcohol Use Standard Drinks/Week Comments Yes 0 (1 standard drink = 0.6 oz pur e alcohol) beer socially [facility] Utilities Answer Date Recorded In the past 12 months has e [employer], gas, oil, or water [employer] threatened to shut off services in your [...] any time in the past 12 m [facility], were you homeless or living in a jail (including now)? No 02/02/2024 Sex and Gender Information Value Date Recorded Sex Assigned at Not on file Legal Sex Male 12:01 PM CDT Gender Identity Not on file Sexual Orientation Not on file documented as of this encounter Progress Notes * Bhavesh Mckay PA-C - 02/05/2024 1:30 PM CDT NEUROSURGERY/ORTHOPEDIC SPINE PROGRESS NOTE SUBJECTIVE: HPI: SP HARDWARE REMOVAL L3- PELVIS BILATERAL WITH EXCEPTION OF S1 SCREW by SMS on 02/01. Drain output is still high, but decreasing. 20 cc over the last 4 hours. Decreased some overnight. Pain is controlled. Wound is covered by an aquacel dressing. CDI. Removed the drain and placed a new bandage over the port hole. Pain is reasonably controlled with current regimen. Denies new extremity pain or weakness. ROS: No change to ROS. Pertinent positives or changes in the HPI. OBJECTIVE: Patient is awake, alert and oriented x3. No acute negative changes to strength or sensation throughout the BLE extremities bilaterally. Wound is covered by an aquacel dressing. CDI. Removed the drain and placed a new bandage over the port hole. Drain output: 20 cc last 4 hours. ASSESSMENT & PLAN: SP L3-Pelvis [facility] at [facility] on 02/01. 1. Drain removed. 2. Wound care and activity precautions explained. 3. Follow up as scheduled. 4. Medication refills per the care team. MOO Jha PA-C [facility] documented in this encounter Plan of Treatment Not on file documented as of this encounter Visit Diagnoses Diagnosis S/P hardware removal- Primary documented in this encounter Care Teams Health Policy Nurse Relationship Specialty Start Date End Date Clinic, No Primary PCP - Primary Care Clinic 08/27/22 Unknown, NO ADDRESS/PHONE/FAX AFFILIATED PCP - General 11/25/23 documented as of this encounter
--- OUTSIDE RECORDS SUMMARY | 2024-03-18 06:08 | XMS_ITS | Encounter Summary ---
Author Organization [facility] Address [address] [place] [address] Care Team Providers Care Purse Maker Name Role Phone Clinic, No Primary Unavailable Unavailable Unknown, Primary Care Provider Unavailabl e Encounter Details Date Type Department Care Team (Latest Contact Info) Description 02/02/2024 Travel Social History Tobacco Use Types Packs/Day Years Used Date Smoking Tobacco: Never Smokeless Tobacco: Never Alcohol Use Standard Drinks/Week Comments Yes 0 (1 standard drink = 0.6 oz pur e alcohol) beer socially [employer] Utilities Answer Date Recorded In the past [...] any time in the past 12 m [facility], were you homeless or living in a senior living (including now)? No 02/02/2024 Sex and Gender Information Value Date Recorded Sex Assigned at Not on file Legal Sex Male 12:01 PM CDT Gender Identity Not on file Sexual Orientation Not on file documented as of this encounter Plan of Treatment Not on file documented as of this encounter Visit Diagnoses Not on filedocumented in this encounter Care Teams Purse Maker Relationship Specialty Start Date End Date Clinic, No Primary PCP - Primary Care Clinic 08/27/22 Unknown, NO ADDRESS/PHONE/FAX AFFILIATED PCP - General 11/25/23 documented as of this encounter
--- OUTSIDE RECORDS SUMMARY | 2024-03-18 06:08 | XMS_ITS | Encounter Summary ---
Author Organization [facility] Address [address] [facility] [place] [address] Care Team Providers Care Metal Trim Erector Name Role Phone Clinic, No Primary Unavailable Unavailable Unknown, Primary Care Provider Unavailabl e Encounter Details Date Type Department Care Team (Late st Contact Info) Description 01/11/2024 Order-Scan [facility] [facility] ([facility]) [address] [place] [phone] Reported, Patient Social History Tobacco Use Types [...] Date/Time Associated Diagnosis Comments SCANNED RADIOLOGY Routine 01/08/2024 8:33 AM CDT documented in this encounter Results * SCANNED RADIOLOGY (01/08/2024 8:33 AM CDT) Anatomical Region Laterality Modality Other us Patient Reported XRAY ORDERABLE Final Result documented in this encounter Visit Diagnoses Not on filedocumented in this encounter Care Teams Metal Trim Erector Relationship Specialty Start Date End Date Clinic, No Primary PCP - Primary Care Clinic 08/27/22 Ramy, NO ADDRESS/PHONE/FAX AFFILIATED PCP - General 11/25/23 documented as of this encounter
--- OUTSIDE RECORDS SUMMARY | 2024-03-18 06:08 | XMS_ITS | Encounter Summary ---
Author Organization [facility] Address [address] [place] [address] Care Team Providers Care Candy Supervisor Name Role Phone Clinic, No Primary Unavailable Unavailable Unknown, Primary Care Provider Unavailabl e Reason for Visit * Inpatient Admission (Routine) Specialty Diagnoses / Procedures Referred By Contac t Referred To Contact Diagnoses Mechanical breakdown of internal fixation device of vertebrae, initial encounter ([facility]) Postsurgical arthrodesis status Mechanical breakdown of internal fixation device of vertebrae, initial encounter ([facility]) [T84.216A] Postsurgical arthrodesis status [Z98.1] Procedures REMOVE SPINE FIX DEV,POST SGM* HARDWARE REMOVAL L3- PELVIS BILATERAL Referral ID Status Reason Start Date Expiration Date Visits Re quested Visits Authorized [id number] 1 1 Encounter Details Date Type Department Care Team (Late st Contact Info) Description 02/02/2024 10:30 AM CDT - 02/02/2024 12:10 PM CDT Surgery [facility] Operating Room [address] [place] [address] Benny Dalton MD [address] [address] HARDWARE REMOVAL L3- PELVIS BILATERAL WITH EXCEPTION OF S1 SCREW Surgery Details Date/Time Status Location OR Service Patient Class Case Class Case Type Trauma Case? 02/02/2024 10:30 AM Posted NMR ORS 10 Orthopedic Admit Following Surgery Panel 1 Procedure LRB Anes Op Region Wound Class Comments HARDWARE REMOVAL L3- PELVIS BILATERAL WITH EXCEPTION OF S1 SCREW Bilateral General Spine, Lumbar Clean (I) #3 Surgeon Surgeon Role Service Panel Benny Dalton MD Primary Orthopedic 1 documented in this encounter Social History Tobacco Use Types Packs/Day Years Used Date Smoking Tobacco: Never Smokeless Tobacco: Never Alcohol Use Standard Drinks/Week Comments Yes 0 (1 standard drink = 0.6 oz pur e alcohol) beer socially [facility] Utilities Answer Date Recorded In the past 12 months has th e electric, gas, oil, or water company [...] any time in the past [address] [facility], were you homeless or living in a half-way (including now)? No 02/02/2024 Sex and Gender Information Value Date Recorded Sex Assigned at Not on file Legal Sex Male 12:01 PM CDT Gender Identity Not on file Sexual Orientation Not on file documented as of this encounter Last Filed Vital Signs Vital Sign Reading Time Taken Comments Blood Pressure - - Pulse 69 02/02/2024 9:13 AM CDT Temperature 36.7 C (98 F) 02/02/2024 9:13 AM CDT Respiratory Rate 18 02/02/2024 9:13 AM CDT Oxygen Saturation 98% 02/02/2024 9:13 AM CDT Inhaled Oxygen Concentration - - Weight 95.3 kg (210 lb) 01/28/2024 12:02 PM CDT Height 175.3 cm (5' 9) 01/28/2024 12:02 PM CDT Body Mass Index 31.01 01/28/2024 12:02 PM CDT documented in this encounter Discharge Summaries * Monica Mei, EDGER RUNNER, RN PALLIATIVE CARE - 02/04/2024 2:05 PM CDT HOSPITAL DISCHARGE SUMMARY Patient Name: Virgilio Jackson Date of : 1960 Age: 63 y.o. Primary Physician: Ramy, Phone: None Admission Date: 02/02/2024 Discharge Date: 02/04/2024 He will be discharged on 02/04/2024 to home PRINCIPAL DISCHARGE DIAGNOSIS: Mechanical breakdown of internal fixation device of vertebrae, initial encounter ([facility]) [T84.216A] Postsurgical arthrodesis status [Z98.1] Principal Problem: Pain from implanted hardware, sequela PROCEDURES PERFORMED DURING HOSPITALIZATION: Procedure(s) with comments: HARDWARE REMOVAL L3- PELVIS BILATERAL WITH EXCEPTION OF S1 SCREW (Bilateral) - #3 Dr. Benny Dalton BRIEF HOSPITAL COURSE: This 63 y.o. male was admitted for the above surgery. The patient underwent the above procedure without complications. Standard prophylactic antibiotics were administered and the patient received DVT prophylaxis per service protocol. The patient's pain was initially controlled on intravenous pain medications and then weaned to oral medications prior to discharge. The patients pain was well controlled and the patient had met all physical therapy goals prior to discharge. Patient was discharged on a Regular diet, LSO, and opioid medications for pain control. Discharge in stable condition. He was discharged with a drain and will follow up with care team for removal. PERTINENT FINDINGS/RESULTS AT DISCHARGE: BP 105/71 Pulse 73 Temp 98.3 ??F (36.8 ??C) Resp 20 Ht 5' 9 (1.753 m) Wt 95.3 kg (210 lb) SpO2 96% BMI 31.01 kg/m?? Surgical/Procedure Site Lower Back (Active) Incision Date/Incision Time: 02/02/24 1124 Incision Type: Incision Orientation: Lower Location: Back Latest Laboratory Results: Admission on 02/02/2024 Component Date Value Ref Range Status GLUCOSE WB METER 02/02/2024 101 (H) 60 - 100 mg/dL Final Hemoglobin 02/03/2024 13.7 (L) 14.0 - 18.0 gm/dL Final Recent Labs 02/03/24 1052 HEMOGLOBIN 13.7* IMPORTANT PENDING TEST RESULTS: None CONDITION AT DISCHARGE: Stabilized DISCHARGE MEDICATIONS: Current Discharge Medication List NEW MEDICATIONS Details methocarbamoL (ROBAXIN) 750 mg oral tablet Take 1 tablet (750 mg) by mouth every 6 (six) hours as needed. Qty: 40 tablet, Refills: 0 oxyCODONE, immediate release, (ROXICODONE) 5 mg oral tablet Take 1-2 tablets (5- 10 mg) by mouth every 4 (four) hours as needed. Qty: 36 tablet, Refills: 0 MEDICATIONS CONTINUED UNCHANGED Details acetaminophen (TYLENOL) 500 mg oral tablet Take 2 tablets (1,000 mg) by mouth once daily. calcium carbonate (TUMS) 200 mg calcium (500 mg) oral chew tab Chew 1 tablet (500 mg) twice a day with breakfast and dinner. Qty: 180 tablet, Refills: 2 Calcium Citrate 200 mg (950 mg) oral Tab Take 1 tablet by oral route 2 times every day. cholecalciferol, vitamin D3, (VITAMIN D3 ORAL) Take 5,000 Int'l Units/day by mouth once daily. EPINEPHrine (EPIPEN) 0.3 mg/0.3 mL Injection auto-injector ONE INJECTION DIRECTED FOR ANAPHYLAXIS Losartan (COZAAR) 100 mg oral tablet Take 1 tablet (100 mg) by mouth Daily. magnesium 250 mg oral Tab Take 1 tablet (250 mg) by mouth twice a day. DISCHARGE ORDERS: Discharge Procedure Orders Any questions or concerns Your surgeon is from the [facility]. Please call your surgeon's office ([phone]) if you have any of the following: - temperature above 101.6 degrees Fahrenheit - nausea and vomiting that will not stop - severe uncontrolled pain - redness, tenderness, drainage from the incisional area that will not stop, or signs of infection (pain, swelling, redness, unpleasant odor, warmth, or green/white/yellow discharge around the site) - severe headache - visual disturbances - dizziness or lightheadedness that will not stop - hives (itchy raised rash) - difficulty breathing - extreme fatigue (cannot get out of bed) - any change in sensation such as new numbness or tingling - any change in movement such as new weakness or inability to move arms or legs as usual - new confusion - any change or loss in bowel or bladder function - burning or urgency on urination - if no bowel movement in three (3) days - chest pain - if any worries about the fit of your brace (when applicable) - any other questions or worries you may have after discharge - in an emergency, CALL 911 or go to an Emergency Department at a nearby hospital Activity as tolerated Do not lift anything greater than 5-10 pounds (a gallon of milk or water). No bending, twisting, pushing or pulling for the first 3-4 weeks. Keep active but avoid strenuous activity. You may climb stairs when you feel able. Walking is good exercise. Avoid amusement park rides and body contact sports until your doctor gives the okay. You may resume sexual activity when you feel comfortable. Discharge Instructions You may move about in bed and rest in any comfortable position. Make sure your head, neck and shoulders have good support. No repetitive arm movements, e.g. housekeeping, making the bed, yard work, shoveling or reaching above the shoulder level. Discharge Instructions You may move about in bed and rest in any comfortable position. You may want to use pillows to support your back and knees. While lying on your side, place a pillow between your knees and under your head and neck. When changing your position in bed, brace your abdominal muscles and log roll onto your side. Change your position, sitting, standing or lying, frequently when there is discomfort. Discharge Instructions DRIVING: You may drive when you have regained coordination and have minimal pain. Usually you can resume driving by 7-14 days after surgery. Have someone drive with you the first time. DO NOT drive after taking pain medications or muscle relaxing medication. Discharge Instructions - avoid bending, twisting, lifting or sitting for long periods of time - do not put your head below the level of your heart - walking is a very important part of your recovery - walk a little further each day - it is best to walk on level ground - do not use stair climbing for exercise - you may climb stairs as needed, but not for exercise - YOUR ONLY EXERCISE PROGRAM RIGHT NOW IS WALKING - follow your physical therapy or rehabilitation program as instructed by your surgeon - follow specific exercise program outlined in the spine manual (when applicable) by your surgeon, therapist, director of safety - stay away from hot tubs, tub baths, pools, lakes until your surgeon has given you the OK - ok to shower 48 hours after surgery (follow shower instructions), or otherwise as directed by your health care provider Discharge Instructions BRACE: IF you were given a brace during your hospital stay, then continue to wear it as directed. Brace on at all times when out of bed except for showers and personal cares (unless otherwise directed by your surgical team). Apply brace while in bed. IF YOU WERE NOT GIVEN A BRACE, then we do not recommend it as part of your recovery. Discharge Instructions MEDICATION: Prescription Pain Medicine: - When at home, alternate Tylenol and your prescription pain medication (oxycodone, hydromorphone, morphine, tramadol) for better control of breakthrough pain. Alternating between the two types of medications helps control pain better. - Do not drink alcohol while taking prescription pain medicine. - Do not drive any motor vehicles while taking prescription pain medicines or any medicines that make you sleepy. - Take the medicine at the time of the day when you most often feel pain. This may be: when you wake up in the morning, before you start certain activities, or when you are ready for bed. Cutting back strategies: - As your pain decreases, you can go for longer times between doses (from 4 hours to 6 or 8 hours). - Reduce dose by taking a smaller amount per dose, such as 1 pill instead of 2 or ?? instead of 1, especially for Opioid medications. - Start decreasing pain medicine as your pain decreases. Tylenol: (acetaminophen) - When at home, alternate Tylenol and your prescription pain medication (oxycodone, hydromorphone, morphine, tramadol) for better control of breakthrough pain. Alternating the two medications helps with breakthrough pain. - Many pain medicines have acetaminophen in them. Do not take more than 3,000 to 4,000 milligrams (3-4 grams) of acetaminophen in 24 hours (more than that could damage your liver) - Acetaminophen is also found in cough and cold medicines. What if the above strategies do not control your pain? If the above solutions do not help, contact your surgeon. For Opioid medication refills: - Be sure to call your surgeon for refills at least 24 hours prior to need (prescription pain medications may need more time, as a written prescription is needed for refills). MEDICATIONS cannot be refilled on weekends or holidays, or after 4:00 p.m. during the week. Dressing Change Your incision was closed with any of the following: Steri-Strips?? (tape-like strips) which may fall off on their own and suture underneath. Dermabond glue. Layered sutures and staple on the skin. - check wound area daily for any signs of redness, swelling or drainage - take your temperature twice a day (morning and evening) for two weeks and write it down. - 48 hours after surgery, ok to shower normally with incision uncovered. When finished, pat incision dry. If wound is showing signs of drainage, then re-dress incision with clean, dry dressing; continue this daily until wound is no longer draining. If wound is not actively draining, then ok to leave incision open to air. Any steri-strips or dermabond glue will fall off naturally with time. - if you have an Aquacel dressing, then leave dressing on until recheck appointment. Shower normally with the dressing on. - If you have a MELONY negative pressure dressing, then leave dressing in place for seven days after surgery. At that point, you may remove the dressing and leave the incision open to air. If dressing becomes saturated or otherwise unusable, remove MELONY dressing and replace with sterile gauze and tape. DRAIN CARE If you were sent home with a drain: - Every 8 hours, empty your drain into a measuring cup and write down the amount (in milliliters). After measuring, empty the drainage into the toilet. - To close the drain after emptying: Squeeze the drain to get rid of the air inside, and then closethe cap while keeping the drain compressed. This will allow the drain to keep constant suction. - If the amount of drainage is enough that you need to empty it MORE THAN every 8 hours, please call your care team for further instruction. - The drain is secured to your skin with a suture, tape, or both of these. - The drain site is covered with a gauze dressing. Keep this in place until you see your health care provider. Keep the area as clean and dry as possible. - Call [facility] if your drain falls out, if you are not able to get it to hold suction, or if you have any other concerns regarding your drain care. - You will need to be seen in clinic to have the drain removed. A member of your care team will call you within 1-2 days after you leave the hospital to arrange this appointment. Dressing Change Keep incision covered for 48 hours after surgery. At that point, remove your tape and dressings. Steri-Strips: If you have Steri-Strips on your incision(s), they will eventually fall off with washing. If you have an Aquacel dressing, then leave dressing on until recheck appointment. Shower normally with the dressing on. If you have a MELONY negative pressure dressing, then leave dressing in place for seven days after surgery. At that point, you may remove the dressing and leave the incision open to air. If dressing becomes saturated or otherwise unusable, remove MELONY dressing and replace with sterile gauze and tape. If you were sent home with a wound drain then refer to the patient education given at discharge. Your [facility] Care Team will call you and help you schedule you drain pull in one of our clinics. Please do not attempt to pull your drain yourself. Call your Care Team with any questions. Diet: Level 7 Regular DIET: - eat a nutritionally well-balanced diet - eat small amounts more often - decreased physical activity, surgical intervention, and certain medications can all cause constipation - increase fiber (fruits, whole grains and raw vegetables) and fluids - drink 6-8 glasses of water per day to prevent constipation Liquid: Level 0: Thin Liquids Follow Up Referral Priority: Routine Number of Visits Requested: 1 Special instructions: As above FOLLOW-UP: He should see [facility] for first recheck in 2-4 weeks. Call for appointment if one not already in place. [phone] Dalton [phone] Total time spent for discharge on date of discharge: 20 minutes. Monica Mei APRN, [facility] Cosigned by Benny Dalton MD at 02/09/2024 7:51 AM CDT documented in this encounter Medications at Time of Discharge acetaminophen (TYLENOL) 500 mg oral tablet Take 2 tablets (1,000 mg) by mouth once daily. 03/14/2022 calcium carbonate (TUMS) 200 mg calcium (500 mg) oral chew tab Chew 1 tablet (500 mg) twice a day with breakfast and dinner. 180 tablet 2 03/12/2023 Calcium Citrate 200 mg (950 mg) oral Tab Take 1 tablet by oral route 2 times every day. 03/05/2022 cholecalciferol, vitamin D3, (VITAMIN D3 ORAL) Take 5,000 Int'l Units/day by mouth once daily. EPINEPHrine (EPIPEN) 0.3 mg/0.3 mL Injection auto-injector ONE INJECTION DIRECTED FOR ANAPHYLAXIS 12/23/2021 Losartan (COZAAR) 100 mg oral tablet Take 1 tablet (100 mg) by mouth Daily. 08/02/2022 magnesium 250 mg oral Tab Take 1 tablet (250 mg) by mouth twice a day. methocarbamoL (ROBAXIN) 750 mg oral tablet Take 1 tablet (750 mg) by mouth every 6 (six) hours as needed. 40 tablet 02/04/2024 3:41 PM CDT 02/04/2024 oxyCODONE, immediate release, (ROXICODONE) 5 mg oral tablet Take 1-2 tablets (5-10 mg) by mouth every 4 (four) hours as needed. 36 tablet 02/04/2024 3:41 PM CDT 02/04/2024 documented as of this encounter Progress Notes * Cristiano Baeza RN - 02/04/2024 4:07 PM CDT Virgilio Jackson [id number] P: Discharge A: Discharged via wheelchair to home at 1701 escorted by significant Other I: Discharge information and arrangements included: prescriptions sent with patient R:Patient, significant Other expressed understanding of information. * Denice Lee RN - 02/04/2024 3:40 PM CDT Shift Update 0700-15:00 Pt is wanting to go home - so NSGY ok'd will be going home with drain. Orders placed this afternoonby NSGY. Pt states that he is comfortable with managing at home. If pt is not comfortable with this- pt can stay per NSGY. 100 ml bloody drainage from YULISSA this shift. Dressing to be changed before discharge. Pt is here and picking up meds in Rx Reported above to oncoming RN at bedside handoff. * Jennifer Hirsch MD - 02/04/2024 3:06 PM CDT Images from the original note were not included. HOSPITALIST DIVISION PROGRESS NOTE Date of Service: 02/04/2024 Admitted: 02/02/2024 8:58 AM INTERVAL EVENTS No major interval evets SUBJECTIVE Patient seen and examined this morning. He complains of low back pain. Very tired but denies any weakness, numbness or tingling. He denies chest pain or shortness of breath. Pertinent positives as noted in subjective above. All other systems were reviewed and are negative. Meds, Hospital- reviewed Current Facility-Administered Medications: acetaminophen (TYLENOL) tablet 1,000 mg, 1,000 mg, oral, TID, 1,000 mg at 02/04/24 1430 OR acetaminophen (TYLENOL) rectal suppository 650 mg, 650 mg, Rectal, TID, Julien Madera PA-C alum-mag hydroxide-simethicone (MAALOX PLUS) suspension 15-30 mL, 15-30 mL, oral, Q6H PRN, Julien Madear PA-C D50W IV syringe 25-50 mL, 25-50 mL, Intravenous, PRN, Julien Madera PA-C diphenhydrAMINE (BENADRYL) injection 12.5 mg, 12.5 mg, Intravenous, Q6H PRN, Julien Madera PA-C docusate sodium (COLACE) capsule 100 mg, 100 mg, oral, Twice Daily, Julien Madera PA-C, 100 mg at 02/04/24 0744 glucagon, human recombinant (Glucagen) injection (conc: 1 mg/mL) 1 mg, 1 mg, IntraMUSCULAR, Q 15 MINS PRN, Julien Madera PA-C HYDROmorphone (DILAUDID) syringe 0.2-0.4 mg, 0.2-0.4 mg, Intravenous, Q4H PRN, Julien Madera PA-C hydrOXYzine pamoate (Vistaril) capsule 50 mg, 50 mg, oral, Q3H PRN, Julien Madera PA-C, 50 mg at 02/04/24 0616 methocarbamoL (ROBAXIN) tablet 750 mg, 750 mg, oral, QID PRN, Julien Madera PA- C, 750 mg at 02/04/24 1249 naloxone (NARCAN) injection 0.1 mg, 0.1 mg, Intravenous, Q1 MINUTE PRN, Julien Madera PA-C ondansetron (Zofran) injection 4 mg, 4 mg, Intravenous, Q8H PRN OR ondansetron (Zofran) disintegrating tablet 4 mg, 4 mg, oral, Q8H PRN, Julien Madera PA-C oxyCODONE (immediate release) (ROXICODONE) tablet 5-10 mg, 5-10 mg, oral, Q4H PRN, Julien Madera PA-C, 10 mg at 02/04/24 1249 OBJECTIVE BP 105/71 Pulse 73 Temp 98.3 ??F (36.8 ??C) Resp 20 Ht 5' 9 (1.753 m) Wt 95.3 kg (210 lb) SpO2 96% BMI 31.01 kg/m?? Temp (24hrs), Av.9 ??F (37.2 ??C), Min:98.3 ??F (36.8 ??C), Max:99.5 ??F (37.5 ??C) Vitals: 02/04/24 0013 02/04/24 0357 02/04/24 0841 02/04/24 1123 BP: 106/73 106/80 110/59 105/71 Pulse: 86 88 95 73 Resp: 18 18 19 20 Temp: 98.6 ??F (37 ??C) 98.8 ??F (37.1 ??C) 99.3 ??F (37.4 ??C) 98.3 ??F (36.8 ??C) SpO2: 94% 100% 94% 96% Weight: Height: Intake/Output Summary (Last 24 hours) at 02/04/2024 1506 Last data filed at 02/04/2024 1339 Gross per 24 hour Intake 750 ml Output 1080 ml Net -330 ml No data found. GENERAL APPEARANCE: Alert, lying in bed, in no acute distress. HEENT: normocephalic, atraumatic, moist mucous membranes. NECK: No JVD, no cervical lymphadenopathy CARDIOVASCULAR: Regular rate and rhythm, no murmur appreciated. NO pitting edema noted. RESPIRATORY: Clear to auscultation bilaterally. No wheezes, rales or rhonchi/crackles. GASTROINTESTINAL: Soft, nontender, nondistended, no masses or organomegaly appreciated. Bowel sounds normoactive. NEUROLOGIC: No focal neurologic deficits. CN II-XI grossly intact. EXTREMITIES: Normal ROM, no gross deformities.Blood soaked dressing at surgical site, sutures intact upon removal of dressing, YULISSA drain in place w bleeing SKIN: No rashes, ulcers, lesions noted. PSYCHIATRIC: Alert and oriented . Pleasant affect. Surgical/Procedure Site Lower Back (Active) Incision Date/Incision Time: 02/02/24 1124 Incision Type: Incision Orientation: Lower Location: Back LABS Recent Labs 02/03/24 1052 HEMOGLOBIN 13.7* No results found for this or any previous visit (from the past 24 hour(s)). No results found for: TROPONINI Lab Results Component Value Date/Time GLUCOWBMETER 101 (H) 02/02/2024 09:20 AM GLUCOWBMETER 101 (H) 10/20/2022 06:24 AM Micro results: No results found for this visit on 02/02/24. IMAGING, Current Admission: XR C-ARM SPINE Result Date: IMPRESSION: Digital spot views findings demonstrate single view with surgical hardware at the levelof the sacrum and lumbar spine.. Please refer to the surgeon's operative report for full details. Signed by Dr. Woody Hays Additional comments: I discussed pt care w RN , at bedside. I reviewed the patient's new clinical lab test results. I reviewed the patient's medications. I reviewed the patient's new imaging test results. ASSESSMENT ASSESSMENT: Principal Problem: Pain from implanted hardware, sequela This is a 63 year old male with PMH of HTN, lumbar DJD s/p fusion admitted for L3 hardware removal.HM consulted for med co-mgt. S/p L3 hardware removal Hx of lumbar DJD s/p fusion Post-operatively doing well. - primary management including pain control, diet, activity, DVT, abx ppx per primary team -YULISSA drain management per primary - PT/OT following, appreciate recs -this am hgb WNL HTN Currently normotensive. On GUEST SERVICES ASSISTANT Losartan 100 mg daily. BP wnl - resume GUEST SERVICES ASSISTANT Losartan only if BP permits CODE STATUS: Full Code DVT prophylaxis: SCDS, chemo pppx per primary GI prophylaxis: None ACCESS: PIV RESTRAINTS: None DISPOSITION: Medically stable. Okay to discharge from medical standpoint Please note: this documentation was partially completed using [employer] dictation software. Itwas briefly reviewed and proofread, but may nonetheless have unintended substitutions of incorrect words or phrases. If there are any questions, please contact me for clarification Jennifer Hirsch MD Internal Medicine/Hospital Medicine [facility] - Hospitalist Service Page via [employer] Available 8:00am - 6:00pm For questions after hours, please see Evening/Night Cross Cover in AMION * Monica Mei APRN, CNP - 02/04/2024 9:38 AM CDT Neurosurgery Progress Note Date of service: 02/04/24 Assessment 63 yo male s/p hardware removal from L3-pelvis with the exception of S1 screw on 02/[address] Dalton. Drain now functional, pain well controlled. Troy would like to discharge with the drain. Orders written, care team will reach out for drain pull. Subjective: Pain much better, wants to dischrage. Objective: Vitals - BP 110/59 Pulse 95 Temp 99.3 ??F (37.4 ??C) Resp 19 Ht 5' 9 (1.753 m) Wt 95.3 kg (210 lb) SpO2 94% BMI 31.01 kg/m?? Temp (24hrs), Av.8 ??F (37.1 ??C), Min:97.9 ??F (36.6 ??C), Max:99.5 ??F (37.5 ??C) Physical Exam - Alertness: A&O x 3 General: in no acute distress Moving all extremities Imaging: No new imaging Drains: 100ml/six hours. LABS: Recent Labs 02/03/24 1052 HEMOGLOBIN 13.7* Lab Results Component Value Date/Time POTASSIUM 3.8 10/21/2022 04:05 PM SODIUM 133 (L) 10/21/2022 04:05 PM Monica Mei APRN, CNP 9:38 AM [facility] [place] Office: [phone] * Clari Womack RN - 02/04/2024 3:03 AM CDT Med-Surg Care Progression Note Type: Shift to shift summary Length of stay: 2 days Code Status: Full Code Primary Problem: Mechanical breakdown of internal fixation device of vertebrae Postsurgical arthrodesis status Pain from implanted hardware, sequela 02/02/24 Hardware removal L3-Pelvis Bilateral with exception of S 1 screw Summary: Drain working better this shift, incisional drsg is CDI with shadow drainage. Neuro surg PA updated that pt has had 280mls out of YULISSA since 2199 last night F- Feeding & Fluids: Tolerating regular diet with thin liquids A- Analgesic & Anticoagulation: Comfort Goal: Numeric, Verbal, Faces: 3 Analgesic Pain controlled with oxycodone, Vistaril, robaxin, scheduled Tylenol and ice/rest Anticoagulation/DVT prevention & plan SCDs S- Skin: Capo Subcategory Concern(s): Sensory Perception: No Impairment Moisture: Rarely Moist Activity: Walks Occasionally Activity Interventions: staff assist with getting pt in hallway to walk Nutrition: Adequate Nutrition Interventions: Pt indep with ordering meals and eating Mobility: Slightly Limited Mobility Interventions: Indep with bed mobility Friction and Shear: No Apparent Problem Total Capo Score: 20: Monitor incision and strip YULISSA every hour. T- Telemetry: Rhythm: Sinus Rhythm Ectopy: None No tele E- Emotional & Neuro: Participating in cares Neuro Alert and Oriented, MITCHELL, ambulatory R- Respiratory: On room air H- Head OUT of Bed & Activity: Activate Fall Alert? (Enter 1 or 0): (not recorded) Ambulating with SBA /GB Pt has been up walking in halls with SBA and GB Progressive mobility Phases 5-7: Phase 6: 25 feet or more U- Urologic/bowel: No data recorded Voiding w/o difficulty in urinal or in bathroom G- Glycemic Control: Not applicable T- Treatment: Pain control, strip YULISSA every hour, monitor dressing for drainage, assist with progressive mobility I- Invasive Devices: PIV, YULISSA D- Discharge: Home today pending incision check by NSHERMINIO * Ladarius Donato RN - 02/03/2024 10:32 PM CDT Med-Surg Care Progression Note Type: Shift to shift summary Length of stay: 1 days Code Status: Full Code Primary Problem: Mechanical breakdown of internal fixation device of vertebrae Postsurgical arthrodesis status Pain from implanted hardware, sequela 02/02/24 Hardware removal L3-Pelvis Bilateral with exception of S 1 screw Summary: Drain working better this shift, 50cc of bloody output, incisional drsg is CDI with shadowdrainage. PRN oxycodone and hydroxyzine given q4h PRN. PRN robaxin given x2, effective. Ice appliedto incsion area. Pt has been up walking in halls x 1 this shift with SBA and GB. F- Feeding & Fluids: Tolerating regular diet with thin liquids A- Analgesic & Anticoagulation: Comfort Goal: Numeric, Verbal, Faces: 3 Analgesic Pain controlled with oxycodone, Vistaril, robaxin, scheduled Tylenol and ice/rest Anticoagulation/DVT prevention & plan SCDs S- Skin: Capo Subcategory Concern(s): Sensory Perception: No Impairment Moisture: Rarely Moist Activity: Walks Occasionally Activity Interventions: staff assist with getting pt in hallway to walk Nutrition: Adequate Nutrition Interventions: Pt indep with ordering meals and eating Mobility: Slightly Limited Mobility Interventions: Indep with bed mobility Friction and Shear: No Apparent Problem Total Capo Score: 20: Monitor incision and strip YULISSA every hour. T- Telemetry: Rhythm: Sinus Rhythm Ectopy: None No tele E- Emotional & Neuro: Participating in cares Neuro Alert and Oriented, MITCHELL, ambulatory R- Respiratory: On room air H- Head OUT of Bed & Activity: Activate Fall Alert? (Enter 1 or 0): (not recorded) Ambulating with SBA /GB Progressive mobility Phases 5-7: Phase 6: 25 feet or more U- Urologic/bowel: No data recorded Voiding w/o difficulty in urinal or in bathroom G- Glycemic Control: Not applicable T- Treatment: Pain control, strip YULISSA every hour, monitor dressing for drainage, assist with progressive mobility I- Invasive Devices: PIV, YULISSA D- Discharge: Home tomorrow pending incision check by DANA * Jennifer Hirsch MD - 02/03/2024 3:00 PM CDT Images from the original note were not included. HOSPITALIST DIVISION PROGRESS NOTE Date of Service: 02/03/2024 Admitted: 02/02/2024 8:58 AM INTERVAL EVENTS No major interval evets SUBJECTIVE Patient seen and examined. C/o low back pain at surgical site. Denies numbness, weakness, fever or chills.Blood soaked dressing per RN Pertinent positives as noted in subjective above. All other systems were reviewed and are negative. Meds, Hospital- reviewed Current Facility-Administered Medications: acetaminophen (TYLENOL) tablet 1,000 mg, 1,000 mg, oral, TID, 1,000 mg at 02/03/24 1450 OR acetaminophen (TYLENOL) rectal suppository 650 mg, 650 mg, Rectal, TID, Julien Madera PA-C alum-mag hydroxide-simethicone (MAALOX PLUS) suspension 15-30 mL, 15-30 mL, oral, Q6H PRN, Julien Madera PA-C D50W IV syringe 25-50 mL, 25-50 mL, Intravenous, PRN, Julien Madera PA-C diphenhydrAMINE (BENADRYL) injection 12.5 mg, 12.5 mg, Intravenous, Q6H PRN, Julien Madera PA-C docusate sodium (COLACE) capsule 100 mg, 100 mg, oral, Twice Daily, Julien Madera PA-C, 100 mg at 02/03/24 0915 glucagon, human recombinant (Glucagen) injection (conc: 1 mg/mL) 1 mg, 1 mg, IntraMUSCULAR, Q 15 MINS PRN, Julien Madera PA-C HYDROmorphone (DILAUDID) syringe 0.2-0.4 mg, 0.2-0.4 mg, Intravenous, Q4H PRN, Julien Madera PA-C hydrOXYzine pamoate (Vistaril) capsule 50 mg, 50 mg, oral, Q3H PRN, Julien Madera PA-C, 50 mg at 02/03/24 1536 methocarbamoL (ROBAXIN) tablet 750 mg, 750 mg, oral, QID PRN, Julien Madera PA- C, 750 mg at 02/03/24 1549 naloxone (NARCAN) injection 0.1 mg, 0.1 mg, Intravenous, Q1 MINUTE PRN, Julien Madera PA-Diego ondansetron (Zofran) injection 4 mg, 4 mg, Intravenous, Q8H PRN OR ondansetron (Zofran) disintegrating tablet 4 mg, 4 mg, oral, Q8H PRN, Julien Madera PA-C oxyCODONE (immediate release) (ROXICODONE) tablet 5-10 mg, 5-10 mg, oral, Q4H PRN, Julien Madera, MIREAY-C, 10 mg at 02/03/24 1536 OBJECTIVE BP 122/69 Pulse 90 Temp 98.8 ??F (37.1 ??C) Resp 18 Ht 5' 9 (1.753 m) Wt 95.3 kg (210 lb) SpO2 99% BMI 31.01 kg/m?? Temp (24hrs), Av ??F (36.7 ??C), Min:97.4 ??F (36.3 ??C), Max:98.8 ??F (37.1 ??C) Vitals: 02/03/24 0443 02/03/24 0749 02/03/24 1209 02/03/24 1526 BP: 95/64 96/69 (!) 109/44 122/69 Pulse: 70 69 88 90 Resp: 17 18 19 18 Temp: 97.7 ??F (36.5 ??C) 98 ??F (36.7 ??C) 97.9 ??F (36.6 ??C) 98.8 ??F (37.1 ??C) SpO2: 99% 100% 96% 99% Weight: Height: Intake/Output Summary (Last 24 hours) at 02/03/2024 1923 Last data filed at 02/03/2024 1845 Gross per 24 hour Intake 650 ml Output 1503 ml Net -853 ml No data found. GENERAL APPEARANCE: Alert, lying in bed, in no acute distress. HEENT: normocephalic, atraumatic, moist mucous membranes. NECK: No JVD, no cervical lymphadenopathy CARDIOVASCULAR: Regular rate and rhythm, no murmur appreciated. NO pitting edema noted. RESPIRATORY: Clear to auscultation bilaterally. No wheezes, rales or rhonchi/crackles. GASTROINTESTINAL: Soft, nontender, nondistended, no masses or organomegaly appreciated. Bowel sounds normoactive. NEUROLOGIC: No focal neurologic deficits. CN II-XI grossly intact. EXTREMITIES: Normal ROM, no gross deformities.Blood soaked dressing at surgical site, sutures intact upon removal of dressing, YULISSA drain in place w bleeing SKIN: No rashes, ulcers, lesions noted. PSYCHIATRIC: Alert and oriented . Pleasant affect. Surgical/Procedure Site Lower Back (Active) Incision Date/Incision Time: 02/02/24 1124 Incision Type: Incision Orientation: Lower Location: Back LABS Recent Labs 02/03/24 1052 HEMOGLOBIN 13.7* Results for orders placed or performed during the hospital encounter of 02/02/24 (from the past 24 hour(s)) Hemoglobin Result Value Ref Range Hemoglobin 13.7 (L) 14.0 - 18.0 gm/dL No results found for: TROPONINI Lab Results Component Value Date/Time GLUCOWBMETER 101 (H) 02/02/2024 09:20 AM GLUCOWBMETER 101 (H) 10/20/2022 06:24 AM Micro results: No results found for this visit on 02/02/24. IMAGING, Current Admission: XR C-ARM SPINE Result Date: IMPRESSION: Digital spot views findings demonstrate single view with surgical hardware at the levelof the sacrum and lumbar spine.. Please refer to the surgeon's operative report for full details. Signed by Dr. Woody Hays Additional comments: I discussed pt care w RN , at bedside. I reviewed the patient's new clinical lab test results. I reviewed the patient's medications. I reviewed the patient's new imaging test results. ASSESSMENT ASSESSMENT: Principal Problem: Pain from implanted hardware, sequela This is a 63 year old male with PMH of HTN, lumbar DJD s/p fusion admitted for L3 hardware removal.HM consulted for med co-mgt. S/p L3 hardware removal Hx of lumbar DJD s/p fusion Post-operatively doing well. - primary management including pain control, diet, activity, DVT, abx ppx per primary team -YULISSA drain malfunctioned, primary aware - PT/OT following, appreciate recs -this am hgb WNL HTN Currently normotensive. On GUEST SERVICES ASSISTANT Losartan 100 mg daily. BP wnl - resume GUEST SERVICES ASSISTANT Losartan only if BP permits CODE STATUS: Full Code DVT prophylaxis: SCDS, chemo pppx per primary GI prophylaxis: None ACCESS: PIV RESTRAINTS: None DISPOSITION: Anticipated date of discharge in 1- 2 days day, Criteria for discharge is post-op cares, therapies and final NSG recs Please note: this documentation was partially completed using [employer] dictation software. Itwas briefly reviewed and proofread, but may nonetheless have unintended substitutions of incorrect words or phrases. If there are any questions, please contact me for clarification Jennifer Hirsch MD Internal Medicine/Hospital Medicine [facility] - Hospitalist Service Page via [employer] Available 8:00am - 6:00pm For questions after hours, please see Evening/Night Cross Cover in AMION * Denice Lee RN - 02/03/2024 1:55 PM CDT Med-Surg Care Progression Note Type: Shift to shift summary Length of stay: 1 days Code Status: Full Code Primary Problem: Mechanical breakdown of internal fixation device of vertebrae Postsurgical arthrodesis status Pain from implanted hardware, sequela 02/02/24 Hardware removal L3-Pelvis Bilateral with exception of S 1 screw Summary: Reported no output of YULISSA and shadow drainage on dressing. Garment Folder rounded with NSGY, dressing removed incision draining, NSGY assessed incision. Orders received for stripping YULISSA every hour tohelp with wound drainage. Pt overall having less pain after dressing changed. Ice applied to incsion. Pt has been up walking in halls x 2 this shift with SBA and GB. N/V intact. F- Feeding & Fluids: Tolerating regular diet with thin liquids A- Analgesic & Anticoagulation: Comfort Goal: Numeric, Verbal, Faces: 3 Analgesic Pain controlled with oxycodone, Vistaril, scheduled Tylenol and ice/rest Anticoagulation/DVT prevention & plan SCDs S- Skin: Capo Subcategory Concern(s): Sensory Perception: No Impairment Moisture: Rarely Moist Activity: Walks Occasionally Activity Interventions: staff assist with getting pt in hallway to walk Nutrition: Adequate Nutrition Interventions: Pt indep with ordering meals and eating Mobility: Slightly Limited Mobility Interventions: Indep with bed mobility Friction and Shear: No Apparent Problem Total Capo Score: 20: Monitor incision and strip YULISSA every hour. T- Telemetry: Rhythm: Sinus Rhythm Ectopy: None No tele E- Emotional & Neuro: Participating in cares Neuro Alert and Oriented, MITCHELL, ambulatory R- Respiratory: On room air H- Head OUT of Bed & Activity: Activate Fall Alert? (Enter 1 or 0): (not recorded) Ambulating with SBA /GB Progressive mobility Phases 5-7: Phase 5: 10 steps or more U- Urologic/bowel: No data recorded Voiding w/o difficulty in urinal or in bathroom G- Glycemic Control: Not applicable T- Treatment: Pain control, strip YULISSA every hour, monitor dressing for drainage, assist with progressive mobility I- Invasive Devices: PIV, YULISSA D- Discharge: Home tomorrow pending incision check by DANA * Brittany Yung PA-C - 02/03/2024 12:03 PM CDT Neurosurgery Progress Note Date of service: 02/03/2024 Assessment 63 yo male s/p hardware removal from L3-pelvis with the exception of S1 screw on 02/[address] Dalton Plan: Pain control-no changes Unfortunately YULISSA drain not functioning. Discussed with RN, please strip hourly to dry and promote drainage Change dressings prn to keep dry. Will place new aquacel dressing prior to d/c PT/OT Reg diet SCDs in bed Dispo: possibly home tomorrow if wound stops leaking, pain improved POC discussed with Dr. Dalton Subjective: Reporting significant pain over incision area, feels pressure, wondering if the drain is causing the discomfort. Voiding without issues. Passing good gas but no BM. Objective: Vitals - BP 96/69 Pulse 69 Temp 98 ??F (36.7 ??C) Resp 18 Ht 5' 9 (1.753 m) Wt 95.3 kg (210 lb) SpO2 100% BMI 31.01 kg/m?? Temp (24hrs), Av.8 ??F (36.6 ??C), Min:97.4 ??F (36.3 ??C), Max:98.2 ??F (36.8 ??C) Physical Exam - Alertness: A&O x 3 General: in no acute distress Incision: dressing saturated; removed and large clot noted on aquacel dressing. Some active serous drainage noted from superior and inferior portions of wound. [place] in place. YULISSA drain in place-blood noted in tubing but there has been no drainage into bulb. Drain stripped. Respiratory: Breathing unlabored Abdomen: no distention noted Strength: no focal deficits Imaging: No new imaging Drains: 0 mL/24 hours LABS: Recent Labs 02/03/24 1052 HEMOGLOBIN 13.7* Lab Results Component Value Date/Time POTASSIUM 3.8 10/21/2022 04:05 PM SODIUM 133 (L) 10/21/2022 04:05 PM Brittany Yung PA-C [facility] * Vega Pickard RN - 02/03/2024 9:10 AM CDT In chart to assist bedside RN * Tarah Resendiz RN - 02/03/2024 5:26 AM CDT Med-Surg Care Progression Note Type: Shift to shift summary Length of stay: 1 days Code Status: Full Code Primary Problem: Hardware Removal L3-Pelvis Bilateral with exception of S1 Screw Summary:Patient alert and oriented,able to verbalizes his needs.Complained lower back pain,scheduled and PRN medication given with relief. Surgical dressing with shadow drainage,contained at the start of the shift,rechecked before 11PM,blood noted on the chucks.Reinforced dressing with abdominal pad on top of it.MD aware. Small bloody output noted on the tubing only.Scheduled IV medication administered. F- Feeding & Fluids: Tolerating regular diet with thin liquid A- Analgesic & Anticoagulation: Comfort Goal: Numeric, Verbal, Faces: 3 Analgesic Complained of lower back pain,scheduled Acetaminophen and PRN Oxycodone 5 mg given with relief Anticoagulation/DVT prevention & plan SCDs S- Skin: Capo Subcategory Concern(s): Sensory Perception: No Impairment Moisture: Rarely Moist Activity: Walks Occasionally Activity Interventions: Reposition every 2 hours and Limited supine (reposition every 1 hour in chair) Nutrition: Adequate Nutrition Interventions: Dietary supplement Mobility: Slightly Limited Mobility Interventions: Low air loss support Friction and Shear: No Apparent Problem Total Capo Score: 20: Surgical dressing at the back,with shadow drainage,shift weight independently T- Telemetry: Rhythm: Sinus Rhythm Ectopy: None No tele E- Emotional & Neuro: Participating in cares Neuro Alert and Oriented R- Respiratory: on RA at 2L/NC,uses incentive spirometer well. H- Head OUT of Bed & Activity: Activate Fall Alert? (Enter 1 or 0): (not recorded) Ambulates independently at baseline U- Urologic/bowel: No data recorded Voiding adequately G- Glycemic Control: Not applicable T- Treatment: Pain control,monitor labs,YULISSA cares I- Invasive Devices: PIV,YULISSA,NC D- Discharge: TBD to home * Elsa Laguna RN - 02/02/2024 6:33 PM CDT Med-Surg Care Progression Note Type: Shift to shift summary Length of stay: 0 days Code Status: Full Code Primary Problem: Hardware Removal L3-Pelvis Bilateral with exception of S1 Screw F- Feeding & Fluids: Tolerating Regular Diet well and drinking sufficient fluids A- Analgesic & Anticoagulation: Comfort Goal: Numeric, Verbal, Faces: 3 Analgesic Has some mild surgical pain-Tylenol given per orders Anticoagulation/DVT prevention & plan N/A S- Skin: Caop Subcategory Concern(s): Sensory Perception: No Impairment Moisture: Rarely Moist Activity: Walks Occasionally Activity Interventions: Limited supine (reposition every 1 hour in chair), Appropriate surface in while in chair, and Low air loss mattress Nutrition: Adequate Nutrition Interventions: Dietary supplement Mobility: Slightly Limited Mobility Interventions: Low air loss support Friction and Shear: No Apparent Problem Total Capo Score: 20: Dressing to back with Shadowy dressing. Pt shifting weight in bed independently T- Telemetry: Rhythm: Sinus Rhythm Ectopy: None No tele E- Emotional & Neuro: Participating in cares and Support system at bedside Neuro Alert and Oriented R- Respiratory: On room air and Incentive Spirometer being used with reminders . On 2 L of Oxygen-tried to wean off but desats when asleep H- Head OUT of Bed & Activity: Activate Fall Alert? (Enter 1 or 0): (not recorded) Ambulates independently at baseline Progressive mobility Phases 5-7: (not recorded) U- Urologic/bowel: No data recorded Voiding adequately G- Glycemic Control: Not applicable T- Treatment: Pain Control, monitor labs, YULISSA cares I- Invasive Devices: PIV x 1. YULISSA, MARY D- Discharge: Anticipated location Home * Elsa Laguna RN - 02/02/2024 3:00 PM CDT Virgilio Jackson [phone] P. Transfer A. Transferred at 1500 from PACU unit. Transported via cart with O2 escorted by director of emergency nursing. I. Notified spouse of transfer. Patient information and safety items addressed included how to callfor help, Handwashing, Respiratory Hygiene, initial physician orders, hourly rounding procedures, belongings checklist, unit and plan of care. R. Patient, spouse expressed understanding of information. . documented in this encounter H&P Notes * Jose M Long MD - 02/02/2024 2:20 PM CDT Images from the original note were not included. HOSPITALIST DIVISION ADMISSION HISTORY AND PHYSICAL Patient Name: Virgilio Jackson Address: [address] [place] [id number] Age: 63 y.o. Sex: male Admission Date/Time: 02/02/2024 8:58 AM Primary Care Provider: Ramy, Informant: patient CHIEF COMPLAINT: Post-op cares HPI: This is a 63 year old male with PMH of HTN, lumbar DJD s/p fusion admitted for L3 hardware removal. HM consulted for med co-mgt. Post-operatively, pt reports pain but well controlled. No numbness, tingling, weakness. PAST MEDICAL HISTORY: Past Medical History: Diagnosis Date Chronic pain HTN (hypertension) PONV (postoperative nausea and vomiting) 1984 spinal block done and pt voice he got very sick Right kidney stone 06/17/2020 PAST SURGICAL HISTORY: Past Surgical History: Procedure Laterality Date ABDOMEN SURGERY PROC UNLISTED APPENDECTOMY 1979 CARDIOVASCULAR PROCEDURE UNLI* ablation for A-fibb COLONOSCOPY HX APPENDECTOMY HX HERNIA REPAIR Bilateral 1970s HX KNEE REPLACMENT Left HX LUMBAR FUSION HX SHOULDER SURGERY Left rotator cuff repair HX SHOULDER SURGERY Right rotator cuff repair with screws IMPLANT PROCEDURE R shoulder screws, R knee screws, L knee replacement, hardware back ORTHOPEDICS PRIOR TO ADMISSION MEDICATIONS: Prior to Admission Medications Prescriptions Last Dose Informant Patient Reported? Taking? Calcium Citrate 200 mg (950 mg) oral Tab 01/28/2024 Yes Yes Sig: Take 1 tablet by oral route 2 times every day. EPINEPHrine (EPIPEN) 0.3 mg/0.3 mL Injection auto-injector PRN Yes Yes Sig: ONE INJECTION DIRECTED FOR ANAPHYLAXIS Losartan (COZAAR) 100 mg oral tablet 02/02/2024 Patient Yes Yes Sig: Take 1 tablet (100 mg) by mouth Daily. acetaminophen (TYLENOL) 500 mg oral tablet 02/01/2024 Yes Yes Sig: Take 2 tablets (1,000 mg) by mouth once daily. calcium carbonate (TUMS) 200 mg calcium (500 mg) oral chew tab not started No Yes Sig: Chew 1 tablet (500 mg) twice a day with breakfast and dinner. cholecalciferol, vitamin D3, (VITAMIN D3 ORAL) 01/28/2024 Yes Yes Sig: Take 5,000 Int'l Units/day by mouth once daily. magnesium 250 mg oral Tab 01/28/2024 Yes Yes Sig: Take 1 tablet (250 mg) by mouth twice a day. Facility-Administered Medications: None ALLERGIES: Bee venom protein (honey bee), Penicillins, and Lisinopril FAMILY HISTORY: No family history on file. SOCIAL HISTORY: Social History Socioeconomic History Marital status: Spouse name: Not on file Number of children: Not on file Years of education: Not on file Highest education level: Not on file Occupational History Not on file Tobacco Use Smoking status: Never Smokeless tobacco: Never Vaping Use Vaping status: Never Used Substance and Sexual Activity Alcohol use: Yes Comment: beer socially Drug use: Never Sexual activity: Not on file Other Topics Concern Not on file Social History Narrative Not on file Social Determinants of Health Food Insecurity: Not on file Transportation Needs: Not on file Intimate Partner Violence: Not on file Housing Stability: Not on file REVIEW OF SYSTEMS: A comprehensive review of systems was negative except for items noted in the HPI/Subjective: PHYSICAL EXAM: Vitals: 02/02/24 1230 02/02/24 1245 02/02/24 1315 02/02/24 1330 BP: 106/66 111/73 116/76 115/77 Pulse: 76 67 64 61 Resp: 13 16 13 12 Temp: SpO2: 99% 99% 94% 96% Weight: Height: O2 Delivery Source: Nasal Cannula Temp (24hrs), Av ??F (36.7 ??C), Min:98 ??F (36.7 ??C), Max:98 ??F (36.7 ??C) Wt Readings from Last 2 Encounters: 01/28/24 95.3 kg (210 lb) 01/21/24 97.5 kg (215 lb) Body mass index is 31.01 kg/m??. GENERAL APPEARANCE: Pt is awake, alert and in no acute distress. HEENT: Head - Normocephalic, atraumatic. Eyes - Normal lids and conjuntivae, PERRLA, EOMs intact. Nose - No deformity. Moist mucous membranes. NECK: Supple RESPIRATORY: Good air entry, no wheezes, no rhonchi, no rales, no increased work of breathing CARDIOVASCULAR: Normal S1, normal S2, regular rate no murmur. GASTROINTESTINAL: Soft, non-tender, normal bowel sounds, non-distended, no rebound SKIN: Incision sites c/d/i NEUROLOGIC: Alert and oriented X 3, moves all extremities equally. Non-focal exam, power 5/5 in UE,sensation grossly intact EXTREMITIES: Distal Pulses are palpable, no edema. PROCEDURES: HARDWARE REMOVAL L3- PELVIS BILATERAL WITH EXCEPTION OF S1 SCREW (N/A) - #3 IMAGING: Xray spine showed : Digital spot views findings demonstrate single view with surgical hardware at the level of the sacrum and lumbar spine.. LABS: Results for orders placed or performed during the hospital encounter of 02/02/24 (from the past 24 hour(s)) POCT Glucose Meter Result Value Ref Range GLUCOSE WB METER 101 (H) 60 - 100 mg/dL EKG: None ADDITIONAL COMMENTS: I reviewed the patient's new clinical lab test results. I reviewed the patient's medications. I reviewed the patient's new imaging test results. I reviewed the patient's other test results. ASSESSMENT: Principal Problem: Pain from implanted hardware, sequela This is a 63 year old male with PMH of HTN, lumbar DJD s/p fusion admitted for L3 hardware removal.HM consulted for med co-mgt. S/p L3 hardware removal Hx of lumbar DJD s/p fusion Post-operatively doing well. - primary management including pain control, diet, activity, DVT, abx ppx per primary team - PT/OT following, appreciate recs HTN Currently normotensive. On GUEST SERVICES ASSISTANT Losartan 100 mg daily - resume GUEST SERVICES ASSISTANT Losartan only if BP permits CODE STATUS: Full Code DVT prophylaxis: None GI prophylaxis: None ACCESS: PIV RESTRAINTS: None DISPOSITION: Anticipated date of discharge in 1 day, Criteria for discharge is post-op cares, therapies and final NSG recs LENGTH OF STAY: OBS - Anticipated LOS <2 Midnights due to need for diagnostic workup of acute condition MEDICAL NECESSITY FOR HOSPITALIZATION: Reason for hospitalization: L3 hardware removal Potential Risk of Morbidity and Mortality: post-op infections Past medical hx and psychosocial factors associated with complexity of Management: Hx of lumbar DJDs/p fusion Needed hospital services and assessment: surgeries, therapies, pain mgt Because of the factors described above, this patient cannot be managed at a lower level of care. Time: 50 minutes Jose M Long MD documented in this encounter Nursing Notes * Denice Lee, JING - 02/04/2024 3:48 PM CDT Problem: SAFETY Goal: *Communicates safety needs Outcome: Completed Problem: Pain Goal: Exhibits reduction in pain to a level of acceptable comfort Outcome: Completed Problem: Falls/Injury-Risk of Goal: Absence of Falls/Injury Outcome: Completed Problem: Venous Thromboembolism (VTE) Goal: Absence of venous thromboembolism (VTE) Outcome: Completed Goal: Adheres to therapeutic regimen Outcome: Completed Problem: Discharge Planning Goal: *Patient and/or family participates in care planning Outcome: Completed Problem: Falls/Injury-Risk of Goal: Absence of Falls/Injury Outcome: Completed Problem: Discharge Planning Goal: Establish appropriate post-hospitalization placement Outcome: Completed Problem: Mobility - Impaired Goal: Demonstrates ability to perform physical activity independently or with assistive devices as needed Outcome: Completed Goal: Verbalizes an understanding of immobility risks and complications Outcome: Completed * Clari Womack RN - 02/04/2024 1:04 AM CDT Problem: SAFETY Goal: *Communicates safety needs Outcome: Met this shift * Ladarius Donato RN - 02/03/2024 4:45 PM CDT Problem: SAFETY Goal: *Communicates safety needs Outcome: Met this shift Problem: Pain Goal: Exhibits reduction in pain to a level of acceptable comfort Outcome: Met this shift * Denice Lee RN - 02/03/2024 2:08 PM CDT Problem: SAFETY Goal: *Communicates safety needs Outcome: Met this shift Problem: Pain Goal: Exhibits reduction in pain to a level of acceptable comfort Outcome: Met this shift Problem: Falls/Injury-Risk of Goal: Absence of Falls/Injury Outcome: Met this shift Flowsheets Taken 02/03/2024 1201 by Denice Lee RN Environmental Safety Interventions: Standard Interventions in Place Mobility Safety Interventions: Standard Interventions in Place Bed Alarm on Transfer/Gait Belt In Use When Patient Is Up Elimination Safety Interventions: Standard Interventions in Place Medication: Standard Interventions in Place Taken 02/02/2024 1600 by Elsa Laguna RN Consults: Pharmacy Consult for Medication Review * Yumiko Wilson - 02/03/2024 9:47 AM CDT Discharge Planning Initial Assessment Patients chart reviewed. Patient discussed in rounds. Admitting diagnoses: Mechanical breakdown of internal fixation device of vertebrae, initial encounter ([facility]) [T84.216A] Postsurgical arthrodesis status [Z98.1] Pain from implanted hardware, sequela [T85.848S] Admitted from: Home [address] [facility] [address] Prior: Living Arrangements: Spouse/significant other Support Systems: Spouse/significant other Kacie Jackson (Spouse) [phone] (H) [phone] (M) PCP Stoney Jo MD (2019September 2019 - Present) [address] [place] [address] Formerly [facility] & [place] [address] Primary decision maker: Patient DME prior to admission: none Anticipated Discharge Needs: NN Care coordination initiated: Care discussed during rounds with nursing;Chart reviewed;Met with patient Care Management barriers to discharge: none identified SW reviewed chart, met with pt at bedside and explained role. SW confirmed home address and PCP. Ptlives with spouse, is own decision maker. Pt is not a . Pt is ambulatory, independent with ADLs, IADLS, no DME at baseline. Pt admitted for Mechanical breakdown of internal fixation device of vertebrae, initial encounter POD#1 Hardware Removal L3-Pelvis Bilateral with exception of S1 Screw, is A&O, on RA, independent in room. Anticipate dc possibly today to home NN pending clearance byNeurosurg. Family to transport. Care management will continue to follow. CANDIDA Jewell, SOFTWARE VALIDATION TECHNICIAN 9:49 AM, 02/03/2024 P: [phone] F: [phone] * Tarah Resendiz RN - 02/03/2024 6:15 AM CDT Problem: Falls/Injury-Risk of Goal: Absence of Falls/Injury Outcome: Met this shift Problem: Pain Goal: Exhibits reduction in pain to a level of acceptable comfort Outcome: Met this shift Problem: SAFETY Goal: *Communicates safety needs Outcome: Met this shift * Freeman Pugh RN - 02/02/2024 1:41 PM CDT PACU POSTOP END OF SHIFT SBAR S: Situation/ B: Background Patient s/p L3 Hardware removal + under general anesthesia. To PACU at 1235 on cart from OR. Placed on full monitors. PMH: refer to EHR A: Assessment Incision: covered Dressing: clean,dry, intact Pain: 07/21 Nausea: denies BP 115/77 Pulse 61 Temp 98 ??F (36.7 ??C) Resp 12 Ht 5' 9 (1.753 m) Wt 95.3 kg (210 lb) SpO2 96% BMI 31.01 kg/m?? Saturation level 2L on NC R: Recommendation Patient to transfer to [address] [place] [address] SBNV report given to JING De Oliveira receiving care * Freeman Pugh RN - 02/02/2024 1:12 PM CDT Assumed care for patient at this time. Received bedside report from Yobani Curiel RN. * Massimo Haskins RN - 02/02/2024 11:24 AM CDT Spinal hardware explanted by Dr Dalton and discarded. See JING Haskins documented in this encounter OR Notes * Brief Op Note - Julien Madera PA-C - 02/02/2024 12:31 PM CDT Name: Virgilio Jackson : 1960 Hospital: [facility] [place] POSTOPERATIVE / POSTPROCEDURE NOTE - IMMEDIATE : Preprocedure Diagnosis: Mechanical breakdown of internal fixation device of vertebrae, initial encounter ([facility]) [T84.216A] Postsurgical arthrodesis status [Z98.1] Postprocedure Diagnosis: same Surgeon(s)/Proceduralist(s) and Assistants (if any): Surgeon: Benny Dalton MD Corn Sheller: Julien Madera PA-C Surgeon(s): Benny Dalton MD @[facility]@ Anesthesiologist: Rob Gonzalez MD CARD LACER JACQUARD: Charli Bejarano APRN, CARD LACER JACQUARD; Myron Callejas APRN, CRNA SRNA: Julien Valverde RN Procedure(s): Procedure(s) with comments: HARDWARE REMOVAL L3- PELVIS BILATERAL WITH EXCEPTION OF S1 SCREW (N/A) - #3 Anesthesia: GETA Procedure(s) findings: Above, as expected. Specimen(s) removed: none sent (EBL) Estimated blood loss (ml): 200cc Complications: none Disposition: transferred to recovery in stable condition. Julien Madera PA-C [facility] [phone] indications: I was asked by Benny Dalton MD to assist with surgery. I positioned and prepped the patient. I retracted soft tissue for operative exposure. I suctioned fluids. I provided traction for dissection. I helped to ligate blood vessels. I helped Benny Dalton MD identify and protect important structures. I sutured and bandaged the incision. The procedure was medically necessary for an virtual office assistant because Benny Dalton MD needed the operative exposure and assistance that I provided. This allowed him to safely and efficiently operate. It was also important that I help ligate blood vessels to maintain hemostasis and reduce the bleeding risk. The assistance that I provided reduced operative time which meant less general anesthetic for the patient. Plan No brace needed. Home tomorrow once pain controlled * OR Surgeon - Benny Dalton MD - 02/02/2024 11:24 AM CDT Virgilio Jackson 1960 [id number] DATE OF OPERATIVE PROCEDURE: 03/07/2024 PROCEDURE Removal of BILATERAL L5-S1 instrumentation Pre-Procedure Diagnosis: Low back pain [M54.5] secondary to retained bilateral L3-S1 instrumentation Post-Procedure Diagnosis: Low back pain [M54.5] secondary to retained bilateral L3-S1 instrumentation Surgeon(s): Benny Datlon MD Asst: Julien Madera PAC Findings: As expected Estimated Blood Loss: 200 mL Specimens: None Drains: None Explants: Pedicle Screws/cap screws x 5, rods x 2 (S1 screw retained as it was fused to the bone) Complications: None Indications for procedure: Virgilio Jacksonis a very pleasant 61 year old male status post lumbar fusion who was bothered by retained L3-S1 screws. Worked up in the clinic and we opted to take out his screws and risks and benefits were discussed with the patient. He wished to proceed. Details of procedure: After the induction of general endotracheal anesthesia patient was flipped to a prone position on the operative table with a Fitz frame. Eminences were padded and the patient was prepped and drapedin the usual fashion utilizing sterile technique. A timeout was called prior to making incision antibiotics. At this time an incision was made directly over the bilateral screws utilizing fluoroscopic imaging. Cap Screws were removed. Rods were removed. Pedicle screws were removed and were well fixed. One S1 screw was left retained because it was fused to the pedicle) Wound was irrigated with antibiotic solution and a dilute Betadine wash. Final imaging showed the removal of the bilateral screws. Fascial layer was closed with #1 Vicryl suture in an interrupted fashion. Subcutaneous tissues were closed with 2-0 Vicryl suture. Skin was closed with 3- 0 Vicryl suture. Sterile dressings are applied and the patient was transferred to the recovery room bed in satisfactory condition. Julien Madera PAC provided assistance with preoperative positioning, prepping, and draping of the patient. The virtual office assistant provided vital operative assistance with retraction using instruments best providing the necessary exposure and visualization for the case, manipulation of tissues to achieve hemostasis, suction for visualization and assisted in wound closure. The virtual office assistant also helped place instrumentation under direct visualization of the surgeon. Postoperatively they assisted in the transfer of the patient off of the operative table and transition into the post anesthesia care unit with arias sition of care being made to the anesthesiologist. Benny Dalton MD SPINE SURGEON/ [facility] TENDER documented in this encounter Plan of Treatment Scheduled Referrals Name Type Priority Associated Diagnoses Orde r Schedule Follow Up Follow Up Routine Ordered: 02/03 documented as of this encounter Procedures Procedure Name Priority Date/Time Associated Diagnosis Comments EXTRA TUBE PST Routine 02/03/2024 10:53 AM CDT HEMOGLOBIN STAT 02/03/2024 10:52 AM CDT XR C-ARM SPINE STAT 02/02/2024 12:26 PM CDT REMOVE SPINE FIX DEV,POST SGM* 02/02/2024 10:50 AM CDT Mechanical breakdown of internal fixation device of vertebrae, initial encounter ([facility]) Postsurgical arthrodesis status POCT GLU METER STAT 02/02/2024 9:20 AM CDT documented in this encounter Results * Extra Tube PST (Lab Use Only) (02/03/2024 10:53 AM CDT) Blood 02/03/2024 10:5 3 AM CDT 02/03/2024 10:58 AM CDT us Jennifer Hirsch MD CHEMISTRY ORDERABLE Final R esult [facility] [address] [place] [address] * (ABNORMAL) Hemoglobin (02/03/2024 10:52 AM CDT) Hemoglobin 13.7(L) 14.0 - 18.0 gm/dL 02/03/2024 11:04 AM CDT [facility] Blood 02/03/2024 10:5 2 AM CDT 02/03/2024 10:58 AM CDT Jennifer Hirsch MD HEMATOLOGY ORDERABLE Final Result [facility] [address] [place] [address] * XR C-ARM SPINE (02/02/2024 12:26 PM [...] 1:55 PM CDT EXAM: Intraoperative fluoroscopy Clinical [id number] surgery Intraoperative fluoroscopy was utilized. Total 3 seconds of fluoroscopy time was utilized. Procedure Note Woody Hays MD - 02/02/2024 EXAM: Intraoperative fluoroscopy Clinical [id number] surgery Intraoperative fluoroscopy was utilized. Total 3 seconds of fluoroscopytime was utilized. IMPRESSION IMPRESSION: Digital spot views findings demonstrate single view withsurgical hardware at the level of the sacrum and lumbar spine.. Please refer to the surgeon's operative report for full details. Signed by Dr. Woody Hays Benny Dalton MD XRAY ORDERABLE Final Res ult * (ABNORMAL) POCT Glucose Meter (02/02/2024 9:20 AM CDT) GLUCOSE WB METER 101(H) 60 - 100 mg/dL 02/02/2024 9:47 AM CDT [facility] Blood 02/02/2024 9:20 AM CDT 02/02/2024 9:47 AM CDT us Benny Dalton MD LAB POINT OF CARE TEST RE SULTS Final Result [facility] [address] [address] documented in this encounter Visit Diagnoses Diagnosis Mechanical breakdown of internal fixation device of vertebrae, initial encounter ([facility]) Postsurgical arthrodesis status Arthrodesis status documented in this encounter Admitting Diagnoses Diagnosis Pain from implanted hardware, sequela documented in this encounter Administered Medications Inactive Administered Medications - up to 3 most recent administrations Medication Order MAR Action Action Date Dose Rate Site acetaminophen (TYLENOL) rectal suppository 650 mg 650 mg, Rectal, THREE TIMES A DAY, First dose on Thu02/02/24 at 1400, Until Discontinued, Post-Op acetaminophen (TYLENOL) tablet 1,000 mg 1,000 mg, oral, THREE TIMES A DAY, First dose on Thu02/02/24 at 1400, Until Discontinued, Post-Op Given 02/04/2024 2:30 PM CDT 1,000 mg Given 02/04/2024 7:45 AM CDT 1,000 mg Given 02/03/2024 10:01 PM CDT 1,000 mg docusate sodium (COLACE) capsule 100 mg 100 mg, oral, TWICE A DAY, First dose on Thu02/02/24 at 1300, Until Discontinued, Post-Op Given 02/04/2024 7:4 4 AM CDT 100 mg Given 02/03/2024 7:51 PM CDT 100 mg Given 02/03/2024 9:15 AM CDT 100 mg hydrOXYzine pamoate (Vistaril) capsule 50 mg 50 mg, oral, EVERY 3 HOURS NEEDED, Starting on Thu02/02/24 at 1250, Until Thu02/04/24 at 2327, Post-Op, to enhance pain control of analgesics Given 02/04/2024 6:16 AM CDT 50 mg Given 02/04/2024 12:21 AM CDT 50 mg Given 02/03/2024 7:51 PM CDT 50 mg methocarbamoL (ROBAXIN) tablet 750 mg 750 mg, oral, FOUR TIMES A DAY NEEDED, Starting on Thu02/02/24 at 1250, Until [place] 02/04/24 at 2327, Post-Op, muscle spasm Given 02/04/2024 12:49 PM CDT 750 mg Given 02/04/2024 3:56 AM CDT 750 mg Given 02/03/2024 10:01 PM CDT 750 mg ondansetron (Zofran) disintegrating tablet 4 mg 4 mg, oral, EVERY 8 HOURS NEEDED, Starting on Thu02/02/24 at 1250, Until Thu02/04/24 at 2327, Post-Op, nausea & vomiting ondansetron (Zofran) injection 4 mg 4 mg, Intravenous, EVERY 8 HOURS NEEDED, Starting on Thu02/02/24 at 1250, Until [place] 02/04/24 at 2327, Post-Op, nausea & vomiting oxyCODONE (immediate release) (ROXICODONE) tablet 5-10 mg 5-10 mg, oral, EVERY 4 HOURS NEEDED, Starting on Thu02/02/24 at 1250, Until Thu02/04/24 at 2327, Post-Op, Pain, when taking PO Given 02/04/2024 12:49 PM CDT 10 mg Given 02/04/2024 6:16 AM CDT 10 mg Given 02/04/2024 12:21 AM CDT 10 mg documented in this encounter Active and Recently Administered Medications Times are shown in CDT. Scheduled Medication Order 02/02/2024 02/03/2024 02/04/2024 acetaminophen (TYLENOL) rectal suppository 650 mg(Linked Group 1) 650 mg, Rectal, THREE TIMES A DAY, First dose on Thu02/02/24 at 1400, Until Discontinued, Post-Op 1528 (See Alternative - Provider: Elsa Laguna RN)2246 (See Alternative - Provider: Tarah Resendiz RN) 0914 (See Alternative - Provider: Vega Pickard RN)1450 (See Alternative - Provider: Denice Lee RN)2201 (See Alternative - Provider: Ladarius Donato RN) 0745 (See Alternative - Provider: Denice Lee RN)1430 (See Alternative - Provider: Denice Lee RN) acetaminophen (TYLENOL) tablet 1,000 mg (COMPLETED) 1,000 mg, oral, ONCE, 1 dose, On Thu02/02/24 at 0900, Pre-Op 0927 (Given - Provider: Faith Ellis RN) acetaminophen (TYLENOL) tablet 1,000 mg(Linked Group 1) 1,000 mg, oral, THREE TIMES A DAY, First dose on Thu02/02/24 at 1400, Until Discontinued, Post-Op 1528 (Given - Provider: Elsa Laguna RN)2246 (Given - Provider: Tarah Resendiz RN) 0914 (Given - Provider: Vega Pickard, JING)1450 (Given - Provider: Denice Lee RN)2201 (Given - Provider: Ladarius Donato, JING) 0745 (Given - Provider: Denice Lee RN)1430 (Given - Provider: Denice Lee RN) clindamycin in D5W 50 mL (CLEOCIN) IV piggyback 900 mg (COMPLETED) 900 mg, Intravenous, ONCE ON INDUCTION, 1 dose, Starting on Thu02/02/24 at 0850, Until Thu02/02/24 at 1114, Intra-Op, Administer over 30 Minutes 1114 (Given - Provider: Julien Valverde RN) clindamycin in D5W 50 mL (CLEOCIN) IV piggyback 900 mg (COMPLETED) 900 mg, Intravenous, EVERY 8 HOURS (NS), 2 doses, First dose on Thu02/02/24 at 1900, Last dose on Thu02/03/24 at 0300, Post-Op, Administer over 30 Minutes 194 (New Bag - Provider: Tarah Resendiz RN) 025 (New Bag - Provider: Tarah Resendiz RN) docusate sodium (COLACE) capsule 100 mg 100 mg, oral, TWICE A DAY, First dose on Thu02/02/24 at 1300, Until Discontinued, Post-Op 1528 (Given - Provider: Elsa Laguna RN)194 (Given - Provider: Tarah Resendiz RN) 0915 (Given - Provider: Vega Pickard, JING)195 (Given - Provider: Ladarius DonatoJING) 0744 (Given - Provider: Denice Lee RN) gabapentin (NEURONTIN) capsule 600 mg (COMPLETED) 600 mg, oral, ONCE, 1 dose, On Thu02/02/24 at 0900, Pre-Op 09 (Given - Provider: Faith Ellis RN) oxyCODONE (oxyCONTIN) extended release tablet 12 HR 10 mg (COMPLETED) 10 mg, oral, ONCE, 1 dose, On Thu02/02/24 at 0900, Pre-Op 09 (Given - Provider: Faith Ellis RN) tranexamic acid (CYKLOKAPRON) 1,000 mg in sodium chloride 0.9 % 100 mL IV infusion (COMPLETED) 1,000 mg, Intravenous, ONCE, 1 dose, On Thu02/02/24 at 1030, Pre-Op, Administer over 10 Minutes 1114 (New Bag - Provider: Julien Valverde RN) PRN Medication Order 02/02/2024 02/03/2024 02/04/2024 alum-mag hydroxide-simethicone (MAALOX PLUS) suspension 15-30 mL 15-30 mL, oral, EVERY 6 HOURS NEEDED, Starting on Thu02/02/24 at 1250, Until [place]ette 02/04/24 at 2327, Post-Op, indigestion D50W IV syringe 25-50 mL 25-50 mL, Intravenous, NEEDED, Starting on Thu02/02/24 at 1250, Until [place] 02/04/24 at 2327, Post-Op, hypoglycemia, for fingerstick blood glucose less than 70 mg/dL diphenhydrAMINE (BENADRYL) injection 12.5 mg 12.5 mg, Intravenous, EVERY 6 HOURS NEEDED, Starting on Thu02/02/24 at 1250, Until [place] 02/04/24 at 2327, Post-Op, itching fentaNYL (SUBLIMAZE) injection 25-50 mcg (CANCELED) 25-50 mcg, Intravenous, EVERY 5 MINUTES NEEDED, 8 doses, Starting on Thu02/02/24 at 1217, Until Thu02/02/24 at 1404, Phase 1/2, ACUTE SURGICAL PAIN 1301 (Given - Provider: Yobani Curiel RN)1308 (Given - Provider: Yobani Curiel RN) glucagon, human recombinant (Glucagen) injection (conc: 1 mg/mL) 1 mg 1 mg, IntraMUSCULAR, EVERY 15 MINUTES NEEDED, 2 doses, Starting on Thu02/02/24 at 1250, Until Thu02/04/24 at 2327, Post-Op, for hypoglycemia HYDROmorphone (DILAUDID) syringe 0.2-0.4 mg 0.2-0.4 mg, Intravenous, EVERY 4 HOURS NEEDED, Starting on Thu02/02/24 at 1250, Until [place] 02/04/24 at 2327, Post-Op, Pain, when NOT taking PO hydrOXYzine HCl (VISTARIL) injection 25 mg (CANCELED)(Linked Group 2) 25 mg, IntraMUSCULAR, ONCE NEEDED, MAY REPEAT X 1, 2 doses, Starting on Thu02/02/24 at 1217, Until Thu02/02/24 at 1404, Phase 1/2, for augmentation of narcotic based analgesia while in recovery area and unable to take PO. Not to be given within the past 6 hours. 1308 (Given - Provider: Yobani Curiel RN) hydrOXYzine pamoate (Vistaril) capsule 50 mg 50 mg, oral, EVERY 3 HOURS NEEDED, Starting on Thu02/02/24 at 1250, Until [place] 02/04/24 at 2327, Post-Op, to enhance pain control of analgesics 1144 (Given - Provider: Denice Lee RN)1536 (Given - Provider: Denice Lee RN)1951 (Given - Provider: Ladarius Donato RN) 0021 (Given - Provider: Clari Womack RN)0616 (Given - Provider: Clari Womack RN) methocarbamoL (ROBAXIN) tablet 750 mg 750 mg, oral, FOUR TIMES A DAY NEEDED, Starting on Thu02/02/24 at 1250, Until Thu02/04/24 at 2327, Post-Op, muscle spasm 1549 (Given - Provider: Ladarius Donato RN)2201 (Given - Provider: Ladarius Donato RN) 0356 (Given - Provider: Clari Womack RN)1249 (Given - Provider: Denice Lee RN) naloxone (NARCAN) injection 0.1 mg 0.1 mg, Intravenous, EVERY 1 MINUTE PRN, Starting on Thu02/02/24 at 1250, Until [place] 02/04/24 at 2327, Post-Op, Opiate Reversal ondansetron (Zofran) disintegrating tablet 4 mg(Linked Group 3) 4 mg, oral, EVERY 8 HOURS NEEDED, Starting on Thu02/02/24 at 1250, Until [place] 02/04/24 at 2327, Post-Op, nausea & vomiting ondansetron (Zofran) injection 4 mg(Linked Group 3) 4 mg, Intravenous, EVERY 8 HOURS NEEDED, Starting on Thu02/02/24 at 1250, Until [place] 02/04/24 at 2327, Post-Op, nausea & vomiting oxyCODONE (immediate release) (ROXICODONE) tablet 5 mg (CANCELED)(Linked Group 4) 5 mg, oral, NEEDED, MAY REPEAT X1, 2 doses, Starting on Thu02/02/24 at 1217, Until Thu02/02/24 at 1404, Phase 1/2, Pain, when taking PO, pain while in recovery area 1303 (Given - Provider: Yobani Curiel RN) oxyCODONE (immediate release) (ROXICODONE) tablet 5-10 mg 5-10 mg, oral, EVERY 4 HOURS NEEDED, Starting on Thu02/02/24 at 1250, Until [place] 02/04/24 at 2327, Post-Op, Pain, when taking PO 1949 (Given - Provider: Tarah Resendiz RN) 0728 (Given - Provider: Tarah Resendiz RN)1144 (Given - Provider: Denice Lee RN)1536 (Given - Provider: Denice Lee RN)1951 (Given - Provider: Ladarius Donato RN) 0021 (Given - Provider: Clari Womack RN)0616 (Given - Provider: Clari Womack RN)1249 (Given - Provider: Denice Lee RN) Linked Groups Order Group 1: acetaminophen (TYLENOL) tablet 1,000 mgJump to med 1,000 mg, oral, THREE TIMES A DAY, First dose on Thu02/02/24 at 1400, Until Discontinued, Post-Op Or acetaminophen (TYLENOL) rectal suppository 650 mgJump to med 650 mg, Rectal, THREE TIMES A DAY, First dose on Thu02/02/24 at 1400, Until Discontinued, Post-Op Group 2: hydrOXYzine pamoate (Vistaril) capsule 25 mg (CANCELED) 25 mg, oral, ONCE NEEDED, MAY REPEAT X 1, 2 doses, Starting on Thu02/02/24 at 1217, Until Thu02/02/24 at 1404, Phase 1/2, for augmentation of narcotic based analgesia while in recovery area. Not to be used if given within the past 6 hours. Or hydrOXYzine HCl (VISTARIL) injection 25 mg (CANCELED)Jump to med 25 mg, IntraMUSCULAR, ONCE NEEDED, MAY REPEAT X 1, 2 doses, Starting on Thu02/02/24 at 1217, Until Thu02/02/24 at 1404, Phase 1/2, for augmentation of narcotic based analgesia while in recovery area and unable to take PO. Not to be given within the past 6 hours. Group 3: ondansetron (Zofran) injection 4 mgJump to med 4 mg, Intravenous, EVERY 8 HOURS NEEDED, Starting on Thu02/02/24 at 1250, Until [place] 02/04/24 at 2327, Post-Op, nausea & vomiting Or ondansetron (Zofran) disintegrating tablet 4 mgJump to med 4 mg, oral, EVERY 8 HOURS NEEDED, Starting on Thu02/02/24 at 1250, Until [place] 02/04/24 at 2327, Post-Op, nausea & vomiting Group 4: oxyCODONE (immediate release) (ROXICODONE) tablet 5 mg (CANCELED)Jump to med 5 mg, oral, NEEDED, MAY REPEAT X1, 2 doses, Starting on Thu02/02/24 at 1217, Until Thu02/02/24 at 1404, Phase 1/2, Pain, when taking PO, pain while in recovery area Or oxyCODONE-acetaminophen (PERCOCET) 5-325 mg tablet 1 tablet (CANCELED) 1 tablet, oral, NEEDED, MAY REPEAT X1, 2 doses, Starting on Thu02/02/24 at 1217, Until Thu02/02/24 at 1404, Phase 1/2, Pain, when taking PO, pain while in recovery area Or HYDROcodone-acetaminophen (NORCO) 5-325 mg tablet 1 tablet (CANCELED) 1 tablet, oral, NEEDED, MAY REPEAT X1, 2 doses, Starting on Thu02/02/24 at 1217, Until Thu02/02/24 at 1404, Phase 1/2, Pain, when taking PO, pain while in recovery area documented in this encounter Care Teams Candy Supervisor Relationship Specialty Start Date End Date Clinic, No Primary PCP - Primary Care Clinic 08/27/22 Unknown, NO ADDRESS/PHONE/FAX AFFILIATED PCP - General 11/25/23 documented as of this encounter
--- OUTSIDE RECORDS SUMMARY | 2024-03-18 06:08 | XMS_ITS | Encounter Summary ---
Author Organization [facility] Address [address] [place] [address] Care Team Providers Care Data Security Analyst Name Role Phone Clinic, No Primary Unavailable Unavailable Unknown, Primary Care Provider Unavailabl e Reason for Visit * Reason Comments Follow up Encounter Details Date Type Department Care Team (Late st Contact Info) Description 01/21/2024 9:10 AM CDT Office Visit [facility] (an [facility] of [facility]) [address] [place] [address] Benny Dalton MD [address] [facility] [address] [place], [place] [id number] Mechanical breakdown of internal fixation device of vertebrae, initial encounter (HCC) (Primary Dx); Postsurgical arthrodesis status Social History Tobacco Use Types Packs/Day Years Used Date Smoking Tobacco: Never Smokeless Tobacco: Never Tobacco Cessation:Counseling Given: Not Answered Alcohol Use Standard Drinks/Week Comments Yes 0 (1 standard drink = 0.6 oz pur e alcohol) beer socially [employer] Utilities Answer Date Recorded In the past 12 months has e [employer], gas, oil, or water [employer] threatened to shut off services in your [...] any time in the past 12 m [facility], were you homeless or living in a senior care (including now)? No 02/02/2024 Sex and Gender [...] - Inhaled Oxygen Concentration - - Weight 97.5 kg (215 lb) 01/21/2024 10:30 AM CDT Height 176.5 cm (5' 9.5) 01/21/2024 10:30 AM CD T Body Mass Index 31.29 01/21/2024 10:30 AM CDT documented in this encounter Progress Notes * Benny Dalton MD - 01/21/2024 9:10 AM CDT DATE OF SERVICE: 01/21/24 CHIEF COMPLAINT: Low back pain. HPI: Virgilio Jackson is a pleasant 63 y.o. male here today for evaluation for the above stated issues. During his previous visit with myself on 12/10/2023, the patient reported he was doing well until he felt a snap in his back and had severe pain in the left side of his low back. An Xray done on his back did reveal a fractured mary. He noted now his pain was starting to decrease and was more tolerable.The patient stated he was having some hip pain and was seeing an orthopedic surgeon who was consideringt a hip replacement. Today, the patient reports he continues to have bilateral low back pain around the sites of his hardware. He notes he did have his CT scan completed and is wondering if his fusion has healed. The patient states his pain is severe and would like to pursue more definitive treatment options. The patient was seen because of The left mary is fractured above the left S1 tulip. The remainder the instrumentation is intact, noted on his CT Imaging scan. His pain is rated at a 6/10 on the pain scale. REVIEW OF SYSTEMS: I have reviewed the last complete 10 point Review of Systems with the patient and any changes in findings are listed as part of today???s visit. All other systems are negative. The patient's Past Medical/Surgical/Family/Social history have been reviewed and verified with the patient. The patient???s current medications have been reviewed and verified with the patient. PHYSICAL EXAM: There were no vitals filed for this visit. GENERAL: No acute distress. HENT: Head normocephalic/atraumatic, hearing grossly intact bilaterally. EYES: Pupils equal, grossly EOMI, clear sclera. NECK: Supple, trachea is midline. RESPIRATORY: Breathing unlabored. BACK: No pain to palpation of lumbar spine. Range of Motion: Full range of motion with flexion, extension, rotation, and lateral bending at lumbar spine. Provacative Testing: Negative SLR. EXTREMITIES: Symmetrical bilaterally without deformity. NEUROLOGICAL: Patient ambulates without difficulty. 5/5 UE motor strength throughout, 5/5 LE motor strength throughout. Light touch sensation intact in bilateral UE/LE. No clonus. Neg Lang's. Alert and oriented, follows commands appropriately, speech clear. Coordination: Heel/toe/gait intact. Tandem gait intact. Reflexes: supinator, biceps, triceps, patellar, achilles 2+. VASCULAR: Extremities are warm bilaterally. INTEGUMENTARY: Shows good hydration and turgor. PSYCHIATRY: Patient has normal affect. IMAGING: The patient did have imaging prior to this appointment which I reviewed myself and discussed the findings with him. The impression is: 01/08/2024 - CT Lumbar Spine - [facility] CONCLUSION: 1. The left mary is fractured above the left S1 tulip. The remainder the instrumentation is intact. 2. Solid L5-S1 through L3-4 anterior fusion with ankylosing posterior elements. 3. L2-3, moderate supra-adjacent segment disease with a 3 mm AP protrusion and mild right L2/L3 encroachment. 4. No change dating back to 08/18/2023. 11/13/2023 - XR Lumbar Spine - [facility] CONCLUSION: 1. No radiographic evidence of instrumentation fracture. 2. Interbody implants appear well situated within their respective intervertebral disc spaces from L3-4 through L5-S1. 3. No radiographic evidence of acute fracture and no evidence of segmental instability. 4. Disc space narrowing at L2-3 is unchanged and consistent with internal disc degeneration at thislevel. 5. 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 ASSESSMENT: 1. Fractured lumbar mary, but CT scan does now show evidence of solid fusion. Patient has pain around his hardware. PLAN: 1. We discussed his current imaging and symptoms. After thorough review, I recommended he undergo Removal of Hardware L3-Pelvis Bilateral. 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 2. A very comprehensive discussion was done with this patient in discussing surgical intervention and the gravity of this type of intervention. A shared decision-making approach was utilized. 3. Patient was specifically instructed on pre-operative and scheduling protocol and was given the appropriate contact information for the beef cattle farmer and the general information line. RISKS: Lumbar risks were discussed and include but were not limited to nerve root injury, spinal fluid leakage, recurrent disc herniation, chronic pain syndromes, instability and need for fusion, infection, bleeding, anesthetic risks, general medical complications, and other unforeseen severe complications. He will follow up 2 weeks postoperatively. Surgical plan: Removal of Hardware L3-Pelvis Bilateral. At the end of our visit, Virgilio Jackson understands the current diagnosis and future treatment plan, and questions were answered satisfactorily. I also asked if there are any other questions or concerns otherwise, that he please call back to the office; understanding of this was expressed. SCRIBE ATTESTATION: By signing my name below, I, MEHREEN HALL, attest that this documentation has been preparedunder the direction and in the presence of Benny Dalton MD, 01/21/2024, 2:30 PM. PHYSICIAN ATTESTATION: I, Benny Dalton MD, personally performed the services described in this documentation. All medical record entries made by the scribe were at my direction and in my presence. I have reviewed thechart and agree that the record reflects my personal performance, is accurate, and complete. Benny Dalton MD SPINE SURGEON/ [facility] * Aysha Brambila LPN - 01/21/2024 9:10 AM CDT As a proxy delegate, I have queried the [place] and/or [place] Prescription Monitoring Program for this patient and did not find any information for the preceding 12 months. Aysha Brambila LPN * Gunnar Gould - 01/21/2024 9:10 AM CDT Reason for visit: RECHECK IMAGING Symptoms: LBP DEEP ACHE Pain Score: 6/10 Imaging/Location/ Date/ ([facility]): 11/13/23 4VL [facility] 01/08/24 CT LUMBAR [facility] 08/18/23 CT LUMBAR [facility] Injections: NO Location: Outcome: Physical Therapy: AUGUST 2023 Location: [facility] Outcome: NONE Current pain meds: TYL Changes in health history since last visit: Any major falls in the last year: no Did the fall(s) result in injury: no Is the patient at risk for falls: no Is a Disability or Workability Form needed - no Current RTW date - Work Comp: no Date: MVA: no Date: Prior Spinal Treatments/ Procedures: 10/20/22 SERA Gould CMA documented in this encounter Plan of Treatment Not on file documented as of this encounter Visit Diagnoses Diagnosis Mechanical breakdown of internal fixation device of vertebrae, initial encounter (HCC)- Primary Postsurgical arthrodesis status Arthrodesis status documented in this encounter Care Teams Data Security Analyst Relationship Specialty Start Date End Date Clinic, No Primary PCP - Primary Care Clinic 08/27/22 [facility], NO ADDRESS/PHONE/FAX AFFILIATED PCP - General 11/25/23 documented as of this encounter
--- OUTSIDE RECORDS SUMMARY | 2024-03-18 06:08 | XMS_ITS | Clinical Summary ---
Author Organization [facility] Address [place], [place] [address] Care Team Providers Care Crozer Name Role Phone Stoney Jo MD Primary [...] every week. 12 Capsule 4 03/05/2022 Active wiafdnxi-dvu-LW-lyc open-lutein (Centrum Silver Men) 300-600-300 mcg tab [...] Comments Blood Pressure 142/80 05/07/2022 4:23 PM EQUIPMENT SALES SPECIALIST Pulse 100 05/07/2022 4:23 PM EQUIPMENT SALES SPECIALIST Temperature 36.9 C (98.5 F) 03/14/2022 7:58 AM EQUIPMENT SALES SPECIALIST Respiratory Rate 16 03/14/2022 7:58 AM EQUIPMENT SALES SPECIALIST Oxygen Saturation 99% 05/07/2022 4:23 PM EQUIPMENT SALES SPECIALIST Inhaled Oxygen Concentration - - Weight 90.7 [...] for age 50+ (1 of 2) 2008 Pneumococcal series for age 65+ (1 of 1 - PCV) 06/27/2023 BMI (ht and wt on same day) for age 18+ 08/12/2023 08/11/2022, 06/27/2022, 05/08/2022, Additional history exists COVID-19 vaccine series (2023- season) 2023 Influenza for age 65+ 12/13/2023 Medical Devices Implanted Type Area Greens Picker Device Identifier Shelf Expiration Date Model / Serial / Lot Bone Matrix 5cc Stimulan Kit Rapid Cure - [id number] Implanted:Qty: 1 on 03/12/2022 by Benny Dalton MD at [facility] N/A: Lumbar Vertebrae [employer] 08/10/2024 [id number] / / [id number] 7.5 X 50 Voyager Screw Implanted:Qty: 1 on 03/12/2022 by Benny Dalton MD at [facility] N/A: Lumbar Vertebrae Medtronic [id number] / / Voyager Set Screws Implanted:Qty: 5 on 03/12/2022 by Benny Dalton MD at [facility] N/A: Lumbar Vertebrae Medtronic [id number] / / 60mm Capped Geovanni Implanted:Qty: 2 on 03/12/2022 by Benny Dalton MD at [facility] N/A: Lumbar Vertebrae Medtronic [id number] / / Bone Matrix Infuse Bmp - [id number] Implanted:Qty: 1 on 03/12/2022 by Benny Dalton MD at [facility] N/A: Lumbar Vertebrae Medtronic Spine/Ortho 04/13/2024 [id number] / / [id number] Bone Matrix 10cc Progenix Plus Putty Db - [id number] Implanted:Qty: 1 on 03/12/2022 by Benny Dalton MD at [facility] N/A: Lumbar Vertebrae Medtronic Spine/Ortho 09/04/2023 [id number] / [id number] / Bone 1-4mm 30cc Medtronic Chips Canclls Freeze Dried - [id number] Implanted:Qty: 1 on 03/12/2022 by Benny Dalton MD at [facility] N/A: Lumbar Vertebrae Medtronic Spine/Ortho 01/21/2026 [id number] / [id number] / [id number] Nanolock Endoskeleton Tas Implant 16mm Implanted:Qty: 1 on 03/12/2022 by Benny Dalton MD at [facility] N/A: Lumbar Vertebrae Medtronic Spine/Ortho 11/05/2025 [id number] / / [id number] Description:Implanted anteri or lumbar spine L3-4 Nanolock [employer] Mmn Endoskeleton Tas Implant 16mm Implanted:Qty: 1 on 03/12/2022 by Benny Dalton MD at [facility] N/A: Lumbar Vertebrae Medtronic 11/26/2025 [id number] / / [id number] 5.5 X 25 Titan Screw Implanted:Qty: 5 on 03/12/2022 by Benny Dalton MD at [facility] N/A: Lumbar Vertebrae Medtronic [id number] / / 6.5 X 25 Titan Screw Implanted:Qty: 1 on 03/12/2022 by Benny Dalton MD at [facility] N/A: Lumbar Vertebrae Medtronic [id number] / / 7.5 X 55mm Voyager Screw Implanted:Qty: 4 on 03/12/2022 by Benny Dalton MD at [facility] N/A: Lumbar Vertebrae Medtronic [id number] / / Advance Directives * Full Code [...] Code Status Discussion: Not Discussed Care Teams Crozer Relationship Specialty Start Date End Date Stoney Jo MD [address] [place] [address] PCP - General Family Practice 01/03/20
--- OUTSIDE RECORDS SUMMARY | 2024-03-18 06:08 | XMS_ITS | Encounter Summary ---
Author Organization [facility] Address [address] [place] [address] Care Team Providers Care Belt Sewer Name Role Phone Clinic, No Primary Unavailable Unavailable Unknown, Primary Care Provider Unavailabl e Reason for Visit * Reason Comments Follow up Recheck- discuss lum bar surgery Encounter Details Date Type Department Care Team (Latest Contact Info) Description 12/10/2023 2:00 PM CDT Office Visit [facility] (an affiliate of [facility]) [address] [phone] Benny Dalton MD [address] [address] S/P lumbar fusion (Primary Dx); Lumbar [...] - - Weight 95.3 kg (210 lb) 12/10/2023 2:36 PM CDT Height 175.3 cm (5' 9) 12/10/2023 2:36 PM CDT Body Mass Index 31.01 12/10/2023 2:36 PM CDT documented in this encounter Patient Instructions * Patient Instructions* Mabel Metcalf - 12/10/2023 2:[address] Dalton has recommended the following at today's visit: Imaging - Lumbar CT is being ordered to [facility]- They will call once approved Physical Therapy - Injection - Other - The performing facility will contact you to schedule your test or procedure once it has been authorized by your insurance. Follow up with Dr. Dalton after the above are completed. If an injection was ordered, a follow up appointment should be scheduled 2-4 weeks after the injection to allow enough time for it to take effect. Once your imaging, test or procedure is scheduled, call [phone] to schedule a follow up appointment. If you have any questions (including if you don't receive a call to schedule your test/procedure), please call Dr. Dalton's Care Team [phone]. documented in this encounter Progress Notes * Gunnar Gould - 12/10/2023 2:00 PM CDT Images from the original note were not included. Virgilio Jackson 63M Refine SearchContact the [employer] Date of : 1960 Recent Address: [address] [place] [address] View Linked Records (1) Other Tools/Metrics Report Criteria First Name: Virgilio Last Name: Manuel : 1960 Linked Records ? Name: Virgilio Jackson : 1960 ID: [id number] Gender: Male Address: [address] [place] [address] Report generated on 12/09/2023. Report Date Range: 12/09/2022 - 12/09/2023 PDF ReportExportState Indicators (0) Details RX Summary Summary Total Prescriptions 1 Total Private Pay 0 Total Prescribers 1 Total Pharmacies 1 Narcotics (excluding Buprenorphine) Current MME/day 0.00 30 Day Avg MME/day 0.00 Current Qty 0 Buprenorphine Current mg/day 0.00 30 Day Avg mg/day 0.00 Current Qty 0 UNINTENTIONAL OVERDOSE RISK SCORE MODEL How should I use this information? BELOW [id number] NARX SCORES NARCOTICS 100 ACTIVE RX 0 SEDATIVES 040 ACTIVE RX 0 STIMULANTS 000 ACTIVE RX 0 [place]AN CONTRIBUTING FACTORS TO OVERDOSE RISK SCORE MODEL Greater than six dispensations No Benzo - Narcotics overlap 0 Days Number of high risk scripts 0 Number of pharmacies where narcotics/sedatives/stimulants filled 1 Total days supply of short-acting drugs 7 i Prescriptions Total: 1 Private Pay: 0 Showing 1 Item View 1 of 1 Filled Written Sold ID Drug QTY Days Prescriber RX # Dispenser Refill Daily Dose* Pymt Type DRAFTER (CAD) ELECTRICAL 12/17/2022 12/17/2022 12/17/2022 1 Hydromorphone 2 Mg Tablet 30.00 7 Montes Joe [id number] Cob (9385) 0/0 42.86 MME Comm Ins [place] Providers Total: 1 Showing 1 Item View 1 of 1 Name Address [facility] Zipcode Phone Herbert Al [address] [facility] [address] Showing 1 Item View 1 of 1 Pharmacies Total: 1 Showing 1 Item View 1 of 1 Name Address [facility] Zipcode Phone [id number] [phone] [address] [facility] [address] As a proxy delegate, I have queried the [place] and/or [place] Prescription Monitoring Program for this patient and provided the clinician with the above information for the preceding 12 months. Gunnar Gould CUFF KNITTER * Benny Dalton MD - 12/10/2023 2:00 PM CDT DATE OF SERVICE: 12/10/23 CHIEF COMPLAINT: Left side low back ain. HPI: Virgilio Jackson is a pleasant 63 y.o. male here today for evaluation for the above stated issues. During his previous visit with Julien Madera PA-C, on 11/09/2023, the patient presented one year status post Anterior Fusion L5-S1, Posterior Fusion L4-S1 with Instrumentation L3-Pelvis, Hardware Removal L3-5 (DOS:10/20/22) with Dr. Benny Dalton. He reported few months ago he noted exquisite left-sided lower back pain and heard an audible crack. Sent for CT scan and to follow-up. He stated the pain improved to some degree so he elected just to follow-up for a 1 year visit. He stated he was stillhaving some lower back pain but it was manageable at this time. Majority the pain was in his hips he was following with general Ortho they were considering a hip replacement. No significant lower extreme pain numbness tingling weakness no other complaints Today, the patient reports he was doing well until he felt a snap in his back and had severe pain in the left side of his low back. An Xray done on his back did reveal a fractured mary. He notes now his pain is starting to decrease and is more tolerable, The patient states he is having some hip painand is seeing an orthopedic surgeon who is consideringt a hip replacement. REVIEW OF SYSTEMS: I have reviewed the [...] the findings with him. The impression is: 11/13/2023 - XR Lumbar Spine - [facility] [...] 5. 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 08/18/2023 - CT Lumbar Spine - [facility] CONCLUSION: 1. Anterior and instrumented posterior spinal fusions from L3 to the sacrum with evidence of healing at each level, minimal radiolucency seen on the proximal margins of the right iliac screw. 2. 3-4 mm right paracentral disc protrusion at L2-3 narrowing the right subarticular recess. 3. Moderate supra-adjacent L2-3 disc degeneration with mild foraminal stenosis on the right. 4. No postop fracture or infection. 5. Comparison with 05/06/2023 shows no significant interval change. ASSESSMENT: 1. Broken mary L4-5 with solid fusion L3-4, L5-S1. Intermittent L4-[address] scan and follow up for review. PLAN: 1. We discussed his current imaging and symptoms. After thorough review, I recommended a CT scan ofhis lumbar spine with thin cuts. 2. A very comprehensive discussion was done with this patient in discussing non surgical intervention and the gravity of this type of intervention. A shared decision-making approach was utilized. He will follow up with me at my next [facility] clinic. At the end of our visit, Virgilio [...] in the presence of Benny Dalton MD, 12/10/2023, 1:18 PM. PHYSICIAN ATTESTATION: I, Benny Dalton MD, personally performed the services described in this documentation. All medical record entries made by the scribe were at my direction and in my presence. I have reviewed thechart and agree that the record reflects my personal performance, is accurate, and complete. Benny Dalton MD SPINE SURGEON/ [facility] * Mabel Metcalf. - 12/10/2023 2:00 PM CDT Reason for visit: Recheck- discuss lumbar surgery Symptoms: low back pain is constant Pain Score: 4/10 Imaging/Location/ Date/ ([facility]): Lumbar CT 08/18/2023 @ [facility] 4vL 11/13/2023 @ [facility] Injections: None Location: NA Outcome: NA Physical Therapy: None Location: NA Outcome: NA Current pain meds: Tylenol Who manages pain meds: self Changes in health history since last visit: mary fracture- felt a pop in July Any major falls in the last year: no Did the fall(s) result in injury: no Is the patient at risk for falls: no Is a Disability or Workability Form needed - no Current RTW date - NA Work Comp: no Date: NA MVA: no Date: NA Prior Spinal Treatments/ Procedures: ASF L5-S1, PSF L4-S1 w/ instrumentation L3- Pelvis, HWR L3-5 10/11/2022 w/ SMS .Mabel Metcalf CMA documented in this encounter Plan of Treatment Not on file documented as of this encounter Visit Diagnoses Diagnosis S/P lumbar fusion- Primary Arthrodesis status Lumbar spine pain Lumbago Lumbar radiculopathy Thoracic or lumbosacral neuritis or radiculitis, unspecified documented in this encounter Care Teams Belt Sewer Relationship Specialty Start Date End Date Clinic, No Primary PCP - Primary Care Clinic 08/27/22 [facility], NO ADDRESS/PHONE/FAX AFFILIATED PCP - General 11/25/23 documented as of this encounter
--- OUTSIDE RECORDS SUMMARY | 2024-03-18 06:08 | XMS_ITS | Encounter Summary ---
Author Organization [facility] Address [address] [place] [address] Care Team Providers Care Client Service Executive Name Role Phone Clinic, No Primary Unavailable Unavailable Unknown, Primary Care Provider Unavailabl e Encounter Details Date Type Department Care Team (Latest Contact Info) Description 12/10/2023 Travel Social History Tobacco Use Types Packs/Day [...] on filedocumented in this encounter Care Teams Client Service Executive Relationship Specialty Start Date End Date Clinic, No Primary PCP - Primary Care Clinic 08/27/22 Md Ramy NO ADDRESS/PHONE/FAX AFFILIATED PCP - General 11/25/23 documented as of this encounter
--- OUTSIDE RECORDS SUMMARY | 2024-03-18 06:08 | XMS_ITS | Encounter Summary ---
Author Organization [facility] Address [address] [place] [address] Care Team Providers Care Institution Librarian Name Role Phone Clinic, No Primary Unavailable Unavailable Unknown, Primary Care Provider Unavailabl e Encounter Details Date Type Department Care Team (Latest Contact Info) Description 01/21/2024 Travel Social History Tobacco Use Types Packs/Day [...] on filedocumented in this encounter Care Teams Institution Librarian Relationship Specialty Start Date End Date Clinic, No Primary PCP - Primary Care Clinic 08/27/22 Md Ramy NO ADDRESS/PHONE/FAX AFFILIATED PCP - General 11/25/23 documented as of this encounter
--- OUTSIDE RECORDS SUMMARY | 2024-03-18 06:08 | XMS_ITS | Encounter Summary ---
Author Organization [facility] Address [address] [place] [address] Care Team Providers Care Color Weigher Name Role Phone Clinic, No Primary Unavailable Unavailable Unknown, Primary Care Provider Unavailabl e Reason for Referral * (Routine) - Pending Review Specialty Diagnoses / Procedures Referred By Contac t Referred To Contact Procedures Diet: Level 7 Regular Monica Mei APRN, CNP [address] [address] Phone: tel: fax: Referral ID Status Reason Start Date Expiration Date V isits Requested Visits Authorized [id number] Pending Review 02/04/2024 1 1 * (Routine) - Pending Review Specialty Diagnoses / Procedures Referred By Contac t Referred To Contact Procedures Dressing Change Monica Mei APRN, CNP [address] [address] Phone: tel: fax: Referral ID Status Reason Start Date Expiration Date V isits Requested Visits Authorized [id number] Pending Review 02/04/2024 1 1 * (Routine) - Pending Review Specialty Diagnoses / Procedures Referred By Contac t Referred To Contact Procedures Dressing Change Monica Mei APRN, CNP [address] [address] Phone: tel: fax: Referral ID Status Reason Start Date Expiration Date V isits Requested Visits Authorized [id number] Pending Review 02/04/2024 1 1 * (Routine) - Pending Review Specialty Diagnoses / Procedures Referred By Contac t Referred To Contact Procedures Discharge Instructions Monica Mei APRN, CNP [address] [address] Phone: tel: fax: Referral ID Status Reason Start Date Expiration Date V isits Requested Visits Authorized [id number] Pending Review 02/04/2024 1 1 * (Routine) - Pending Review Specialty Diagnoses / Procedures Referred By Contac t Referred To Contact Procedures Discharge Instructions Monica Mei APRN, CNP [address] [address] Phone: tel: fax: Referral ID Status Reason Start Date Expiration Date V isits Requested Visits Authorized [id number] Pending Review 02/04/2024 1 1 * (Routine) - Pending Review Specialty Diagnoses / Procedures Referred By Contac t Referred To Contact Procedures Discharge Instructions Monica Mei APRN, CNP [address] [address] Phone: tel: fax: Referral ID Status Reason Start Date Expiration Date V isits Requested Visits Authorized [id number] Pending Review 02/04/2024 1 1 * (Routine) - Pending Review Specialty Diagnoses / Procedures Referred By Contac t Referred To Contact Procedures Discharge Instructions Monica Mei APRN, CNP [address] [address] Phone: tel: fax: Referral ID Status Reason Start Date Expiration Date V isits Requested Visits Authorized [id number] Pending Review 02/04/2024 1 1 * (Routine) - Pending Review Specialty Diagnoses / Procedures Referred By Contac t Referred To Contact Procedures Discharge Instructions Monica Mei APRN, CNP [address] [address] Phone: tel: fax: Referral ID Status Reason Start Date Expiration Date V isits Requested Visits Authorized [id number] Pending Review 02/04/2024 1 1 * (Routine) - Pending Review Specialty Diagnoses / Procedures Referred By Contac t Referred To Contact Procedures Discharge Instructions Monica Mei APRN, CNP [address] [address] Phone: tel: fax: Referral ID Status Reason Start Date Expiration Date V isits Requested Visits Authorized [id number] Pending Review 02/04/2024 1 1 * (Routine) - Pending Review Specialty Diagnoses / Procedures Referred By Contac t Referred To Contact Procedures Activity as tolerated Monica Mei APRN, CNP [address] [address] Phone: tel: fax: Referral ID Status Reason Start Date Expiration Date V isits Requested Visits Authorized [id number] Pending Review 02/04/2024 1 1 * (Routine) - Pending Review Specialty Diagnoses / Procedures Referred By Contcholo t Referred To Contact Monica Mei APRN, CNP [address] [address] Phone: tel: fax: Referral ID Status Reason Start Date Expiration Date V isits Requested Visits Authorized [id number] Pending Review 02/04/2024 1 1 Question Answer Instructions to follow-up provider NA Comments Return to clinic in 2-4 weeks for f/u appointment and suture/staple removal if applicable. If you need a refill on your prescriptions, or you have questions or concerns, please call [phone] during office hours, Thursday-Thursday 8:30 a.m. to 4:30 p.m. Please plan ahead if you are running low and expect to require a refill. * (Routine) - Pending Review Specialty Diagnoses / Procedures Referred By Contac t Referred To Contact Procedures Any questions or concerns Monica Mei APRN, CNP [address] [address] Phone: tel: fax: Referral ID Status Reason Start Date Expiration Date V isits Requested Visits Authorized [id number] Pending Review 02/04/2024 1 1 Reason for Visit * Inpatient Admission (Routine) Specialty Diagnoses / Procedures Referred By Contac t Referred To Contact Diagnoses Mechanical breakdown of internal fixation device of vertebrae, initial encounter (HCC) Postsurgical arthrodesis status Mechanical breakdown of internal fixation device of vertebrae, initial encounter (HCC) [T84.216A] Postsurgical arthrodesis status [Z98.1] Procedures REMOVE SPINE FIX DEV,POST SGM* HARDWARE REMOVAL L3- PELVIS BILATERAL Referral ID Status Reason Start Date Expiration Date Visits Re quested Visits Authorized [id number] 1 1 Encounter Details Date Type Department Care Team (Latest Contact Info) Description 02/02/2024 8:58 AM CDT - 02/04/2024 4:15 PM CDT Hospital Encounter W5 [id number] [facility] [address] [place] [address] Benny Dalton MD [address] [place] [address] Pain from implanted hardware, sequela Discharge Disposition: Returning Home/Self Care Social History Tobacco Use Types Packs/Day Years Used Date Smoking Tobacco: Never Smokeless Tobacco: Never Alcohol Use Standard Drinks/Week Comments Yes 0 (1 standard drink = 0.6 oz pur e alcohol) beer socially [facility] Utilities Answer Date Recorded In the past 12 months has e [place], gas, oil, or water [employer] threatened to shut off services in your [...] any time in the past 12 m [facility], were you homeless or living in [...] this encounter Discharge Summaries * Monica Mei, WOOD MILLING MACHINE HAND, INDUSTRIAL HYGIENIST - 02/04/2024 2:05 PM CDT HOSPITAL DISCHARGE SUMMARY Patient Name: Virgilio Jackson Date of : 1960 Age: 63 y.o. Primary Physician: Ramy, Phone: None Admission Date: 02/02/2024 Discharge Date: 02/04/2024 He will be discharged on 02/04/2024 to home PRINCIPAL DISCHARGE DIAGNOSIS: Mechanical breakdown of internal fixation device of vertebrae, initial encounter ([facility]) [T84.216A] Postsurgical arthrodesis status [Z98.1] Principal Problem: [...] or concerns Your surgeon is from the [facility]. Please call your surgeon's office ([phone]) if you have any of the following: [...] manual (when applicable) by your surgeon, therapist, inspector outside production - stay away from hot tubs, tub [...] clean and dry as possible. - Call [facility] if your drain falls out, if you [...] the patient education given at discharge. Your [facility] Care Team will call [...] instructions: As above FOLLOW-UP: He should see [facility] for first recheck in 2-4 weeks. Call for appointment if one not already in place. [phone] Dalton [phone] Total time spent for discharge on date of discharge: 20 minutes. Monica Mei APRN, WESLEY [facility] Cosigned by Benny Dalton MD at 02/09/2024 [...] 02/04/2024 4:07 PM CDT Virgilio Jackson 1960 [id number] P: Discharge A: Discharged via wheelchair to [...] 0.2-0.4 mg, Intravenous, Q4H PRN, Julien Madera PA-Diego hydrOXYzine pamoate (Vistaril) capsule 50 mg, 50 mg, oral, Q3H PRN, Julien Madera PA-C, 50 mg at 02/04/24 0616 methocarbamoL (ROBAXIN) tablet 750 mg, 750 mg, oral, QID PRN, Julien Madera PA- Diego, 750 mg at 02/04/24 1249 naloxone (NARCAN) [...] s/p fusion admitted for L3 hardware removal. consulted for med co-mgt. S/p L3 hardware removal Hx of lumbar DJD s/p fusion Post-operatively doing well. - primary management including pain control, diet, activity, DVT, abx ppx per primary team -YULISSA drain management per primary - PT/OT following, appreciate recs -this am hgb WNL HTN Currently normotensive. On PLASTIC WELDER Losartan 100 mg daily. BP wnl - resume PLASTIC WELDER Losartan only if BP permits CODE STATUS: Full Code DVT prophylaxis: SCDS, chemo pppx per primary GI prophylaxis: None ACCESS: PIV RESTRAINTS: None DISPOSITION: Medically stable. Okay to discharge from medical standpoint Please note: this documentation was partially completed using mojio dictation software. Itwas briefly reviewed and proofread, but may nonetheless have unintended substitutions of incorrect words or phrases. If there are any questions, please contact me for clarification Jennifer Hirsch MD Internal Medicine/Hospital Medicine [facility] - Hospitalist Service Page via [employer] Available 8:00am - 6:00pm For questions after hours, please see Evening/Night Cross Cover in AMION * Monica Mei APRN, WESLEY - 02/04/2024 9:38 AM CDT Neurosurgery Progress [...] (L) 10/21/2022 04:05 PM Monica Mei APRN, INDUSTRIAL HYGIENIST 9:38 AM [facility] Office: [phone] * Clari Womack, RN - 02/04/2024 3:03 AM CDT Med-Surg [...] Discharge: Home today pending incision check by NSGY * Ladarius Donato RN - 02/03/2024 10:32 [...] mg, 100 mg, oral, Twice Daily, Julien aMdera PA-C, 100 mg at 02/03/24 0915 glucagon, human recombinant (Glucagen) injection (conc: 1 mg/mL) 1 mg, 1 mg, IntraMUSCULAR, Q 15 MINS PRN, Julien Madera PA-C HYDROmorphone (DILAUDID) syringe 0.2-0.4 mg, 0.2-0.4 mg, Intravenous, Q4H PRN, Julien Madera, PA-C hydrOXYzine pamoate (Vistaril) capsule 50 mg, 50 mg, oral, Q3H PRN, Julien Madera, MIREYA-C, 50 mg at 02/03/24 1536 methocarbamoL (ROBAXIN) tablet 750 mg, 750 mg, oral, QID PRN, Julien Madera, MIREYA- C, 750 mg at 02/03/24 1549 naloxone (NARCAN) injection 0.1 mg, 0.1 mg, Intravenous, Q1 MINUTE PRN, Julien Madera, PA-C ondansetron (Zofran) injection 4 mg, 4 mg, Intravenous, Q8H PRN OR ondansetron (Zofran) disintegrating tablet 4 mg, 4 mg, oral, Q8H PRN, Julien Madera, PA-C oxyCODONE (immediate release) (ROXICODONE) tablet 5-10 mg, 5-10 mg, oral, Q4H PRN, Julien Madera, MIREYA-C, 10 mg at 02/03/24 1536 OBJECTIVE BP [...] 122/69 Pulse: 70 69 88 90 Resp: 18 Temp: 97.7 ??F (36.5 ??C) 98 [...] am hgb WNL HTN Currently normotensive. On PLASTIC WELDER Losartan 100 mg daily. BP wnl - resume PLASTIC WELDER Losartan only if BP permits CODE STATUS: Full Code DVT prophylaxis: SCDS, chemo pppx per primary GI prophylaxis: None ACCESS: PIV RESTRAINTS: None DISPOSITION: Anticipated date of discharge in 1- 2 days day, Criteria for discharge is post-op cares, therapies and final NSG recs Please note: this documentation was partially completed using mojio dictation software. Itwas briefly reviewed and proofread, but may nonetheless have unintended substitutions of incorrect words or phrases. If there are any questions, please contact me for clarification Jennifer Hirsch MD Internal Medicine/Hospital Medicine [facility] - Hospitalist Service Page via [employer] Available 8:00am - 6:00pm For questions after hours, please see Evening/Night Cross Cover in [place] * Denice Lee RN - 02/03/2024 1:55 [...] of YULISSA and shadow drainage on dressing. Environmental Control Administrator rounded with NSGY, dressing removed incision draining, [...] Discharge: Home tomorrow pending incision check by NSGY * Brittany Yung PA-C - 02/03/2024 12:03 [...] from superior and inferior portions of wound. Dewayne in place. YULISSA drain in place-blood noted [...] (L) 10/21/2022 04:05 PM Brittany Yung PA-C [facility] * Vega Pickard RN [...] Anticoagulation/DVT prevention & plan N/A S- Skin: Capo Subcategory Concern(s): Sensory Perception: [...] I- Invasive Devices: PIV x 1. YULISSA, NE D- Discharge: Anticipated location Home * Elsa Laguna RN - 02/02/2024 3:00 PM CDT Virgilio Aureliano Jackson 1960 [id number] P. Transfer A. Transferred at 1500 from PACU unit. Transported via cart with O2 escorted by clinical physician assistant. I. Notified spouse of transfer. Patient information [...] AND PHYSICAL Patient Name: Virgilio Jackson [address]: [address] [place] [address] Age: 63 y.o. Sex: male Admission Date/Time: [...] following, appreciate recs HTN Currently normotensive. On PLASTIC WELDER Losartan 100 mg daily - resume PLASTIC WELDER Losartan only if BP permits CODE STATUS: [...] documented in this encounter Nursing Notes * Raatikka, Denice, RN - 02/04/2024 3:48 PM CDT Problem: SAFETY [...] internal fixation device of vertebrae, initial encounter ([facility]) [T84.216A] Postsurgical arthrodesis status [Z98.1] Pain from implanted hardware, sequela [T85.848S] Admitted from: Home [address] [facility] [address] Prior: Living Arrangements: Spouse/significant other Support Systems: Spouse/significant other Kacie Kungayle Jackson (Spouse) [phone] (H) [phone] (M) PCP Stoney Jo MD (2019September 2019 - Present) [address] [place] [address] [facility] [place] [address] Primary decision maker: Patient DME prior to [...] possibly today to home NN pending clearance byNeurosur. Family to transport. Care management will continue to follow. Yumiko Schneider, INTAKE SPECIALIST, LOG HOOKER 9:49 AM, 02/03/2024 P: [phone] F: [phone] * Tarah Resendiz RN - 02/03/2024 6:15 [...] Assessment Incision: covered Dressing: clean,dry, intact Pain: 4/10 Nausea: denies BP 115/77 Pulse 61 Temp 98 ??F (36.7 ??C) Resp 12 Ht 5' 9 (1.753 m) Wt 95.3 kg (210 lb) SpO2 96% BMI 31.01 kg/m?? Saturation level 2L on NC R: Recommendation Patient to transfer to [address] [place] [address] SBAR report given to JING De Oliveira receiving care * Freeman Pugh RN - 02/02/2024 1:12 PM CDT Assumed care for patient at this time. Received bedside report from Yobani Curiel RN. * Massimo Haskins RN - 02/02/2024 11:24 AM CDT Spinal hardware explanted by Dr Dalton and discarded. Massimo Haskins RN documented in this encounter OR Notes * Brief Op Note - Julien Madera PA-C - 02/02/2024 12:31 PM CDT Name: Virgilio Jackson : 1960 Hospital: [facility] POSTOPERATIVE / POSTPROCEDURE NOTE - IMMEDIATE : Preprocedure Diagnosis: Mechanical breakdown of internal fixation device of vertebrae, initial encounter ([facility]) [T84.216A] Postsurgical arthrodesis status [Z98.1] Postprocedure Diagnosis: same Surgeon(s)/Proceduralist(s) and Assistants (if any): Surgeon: Benny Dalton MD Haul Cane Brakeman: Julien Madera PA-C Surgeon(s): Benny Dalton MD @[facility]@ Anesthesiologist: Rob Gonzalez MD COLUMNIST/COMMENTATOR: Charli Bejarano APRN, COLUMNIST/COMMENTATOR; Myron Callejas APRN, COLUMNIST/COMMENTATOR SRNA: Julien Valverde RN Procedure(s): Procedure(s) with comments: HARDWARE REMOVAL L3- PELVIS BILATERAL WITH EXCEPTION OF S1 SCREW (N/A) - #3 Anesthesia: GETA Procedure(s) findings: Above, as expected. Specimen(s) removed: none sent (EBL) Estimated blood loss (ml): 200cc Complications: none Disposition: transferred to recovery in stable condition. Julien Madera PA-C [facility] [phone] indications: I was asked by Benny Dalton MD to assist with surgery. I positioned and prepped the patient. I retracted soft tissue for operative exposure. I suctioned fluids. I provided traction for dissection. I helped to ligate blood vessels. I helped Benny Dalton MD identify and protect important structures. I sutured and bandaged the incision. The procedure was medically necessary for an visitor services assistant because Benny Dalton MD needed the [...] 02/02/2024 11:24 AM CDT Virgilio Jackson 1960 [id number] DATE OF OPERATIVE PROCEDURE: 03/07/2024 PROCEDURE Removal of BILATERAL L5-S1 instrumentation Pre-Procedure Diagnosis: Low back pain [M54.5] secondary to retained bilateral L3-S1 instrumentation Post-Procedure Diagnosis: Low back pain [M54.5] secondary to retained bilateral L3-S1 instrumentation Surgeon(s): Benny Dalton MD Asst: Julien Madera PAC Findings: As [...] the recovery room bed in satisfactory condition. [facility] PAC provided assistance with preoperative positioning, prepping, and draping of the patient. The visitor services assistant provided vital operative assistance with retraction using instruments best providing the necessary exposure and visualization for the case, manipulation of tissues to achieve hemostasis, suction for visualization and assisted in wound closure. The visitor services assistant also helped place instrumentation under direct visualization of the surgeon. Postoperatively they assisted in the transfer of the patient off of the operative table and transition into the post anesthesia care unit with arias sition of care being made to the anesthesiologist. Benny Dalton MD SPINE SURGEON/ [facility] RRAGE WORKER documented in this encounter Plan of Treatment [...] ORDERABLE Final R esult Performing Organization Address City/[facility]/ZIP Co de Phone Number [facility] [place] [address] * (ABNORMAL) Hemoglobin (02/03/2024 10:52 AM CDT) Hemoglobin 13.7(L) 14.0 - 18.0 gm/dL 02/03/2024 11:04 AM CDT [facility] Blood 02/03/2024 10:5 2 AM CDT 02/03/2024 10:58 AM CDT Jennifer Hirsch MD HEMATOLOGY ORDERABLE Final Result Performing Organization Address [facility] Co de Phone Number [facility] [address] * XR C-ARM SPINE (02/02/2024 12:26 PM [...] 1:55 PM CDT EXAM: Intraoperative fluoroscopy Clinical [id number]-[id number] surgery Intraoperative fluoroscopy was utilized. Total 3 seconds of fluoroscopy time was utilized. Procedure Note Woody Hays MD - 02/02/2024 EXAM: Intraoperative fluoroscopy Clinical [id number] surgery Intraoperative fluoroscopy was utilized. Total 3 [...] - 100 mg/dL 02/02/2024 9:47 AM CDT [facility] Blood 02/02/2024 9:20 AM CDT 02/02/2024 9:47 AM CDT Benny Dalton MD LAB POINT OF CARE TEST RE SULTS Final Result [facility] [address] [place] [address] documented in this encounter Visit Diagnoses Diagnosis Pain from implanted hardware, sequela- Primary documented in this encounter Admitting Diagnoses Diagnosis [...] (TYLENOL) tablet 1,000 mg 1,000 mg, oral, ONCE, 1 dose, On Thu02/02/24 at 0900, Pre-Op Given 02/02/2024 9:27 AM CDT 1,000 mg acetaminophen (TYLENOL) tablet 1,000 mg 1,000 mg, oral, THREE TIMES A DAY, First dose on Thu02/02/24 at 1400, Until Discontinued, Post-Op Given 02/04/2024 2:30 PM CDT 1,000 mg Given 02/04/2024 7:45 AM CDT 1,000 mg Given 02/03/2024 10:01 PM CDT 1,000 mg clindamycin in D5W 50 mL (CLEOCIN) IV piggyback 900 mg 900 mg, Intravenous, EVERY 8 HOURS (NS), 2 doses, First dose on Thu02/02/24 at 1900, Last dose on Thu02/03/24 at 0300, Post-Op, Administer over 30 MinutesIndications:SURGICAL PROPHYLAXIS New Bag 02/03/2024 2:50 AM CDT 900 mg 100 mL/hr New Bag 02/02/2024 7:41 PM CDT 900 mg 100 mL/hr docusate sodium (COLACE) capsule 100 mg 100 mg, oral, TWICE A DAY, First dose on Thu02/02/24 at 1300, Until Discontinued, Post-Op Given 02/04/2024 7:4 4 AM CDT 100 mg Given 02/03/2024 7:51 PM CDT 100 mg Given 02/03/2024 9:15 AM CDT 100 mg fentaNYL (SUBLIMAZE) injection 25-50 mcg 25-50 mcg, Intravenous, EVERY 5 MINUTES NEEDED, 8 doses, Starting on Thu02/02/24 at 1217, Until Thu02/02/24 at 1404, Phase 1/2, ACUTE SURGICAL PAIN Given 02/02/2024 1:08 PM CDT 25 mcg Given 02/02/2024 1:01 PM CDT 25 mcg gabapentin (NEURONTIN) capsule 600 mg 600 mg, oral, ONCE, 1 dose, On Thu02/02/24 at 0900, Pre-Op Given 02/02/2024 9:27 AM CDT 600 mg hydrOXYzine HCl (VISTARIL) injection 25 mg 25 mg, IntraMUSCULAR, ONCE NEEDED, MAY REPEAT X 1, 2 doses, Starting on Thu02/02/24 at 1217, Until Thu02/02/24 at 1404, Phase 1/2, for augmentation of narcotic based analgesia while in recovery area and unable to take PO. Not to be given within the past 6 hours. Given 02/02/2024 1:08 PM CDT 25 mg Right Arm hydrOXYzine pamoate (Vistaril) capsule 50 mg 50 [...] oxyCODONE (immediate release) (ROXICODONE) tablet 5 mg 5 mg, oral, NEEDED, MAY REPEAT X1, 2 doses, Starting on Thu02/02/24 at 1217, Until Thu02/02/24 at 1404, Phase 1/2, Pain, when taking PO, pain while in recovery area Given 02/02/2024 1:03 PM CDT 5 mg oxyCODONE (immediate release) (ROXICODONE) tablet 5-10 mg 5-10 mg, oral, EVERY 4 HOURS NEEDED, Starting on Thu02/02/24 at 1250, Until [place]ette 02/04/24 at 2327, Post-Op, Pain, when taking PO Given 02/04/2024 12:49 PM CDT 10 mg Given 02/04/2024 6:16 AM CDT 10 mg Given 02/04/2024 12:21 AM CDT 10 mg oxyCODONE (oxyCONTIN) extended release tablet 12 HR 10 mg 10 mg, oral, ONCE, 1 dose, On Thu02/02/24 at 0900, Pre-Op Given 02/02/2024 9:27 AM CDT 10 mg documented in this [...] RN) 0914 (See Alternative - Provider: Vega Pickard, JING)1450 (See Alternative - Provider: Denice Lee, JING)2201 (See Alternative - Provider: Ladarius Donato, JING) 0745 (See Alternative - Provider: Denice Lee [...] Elsa Laguna RN)2246 (Given - Provider: Tarah Resendiz, JING) 0914 (Given - Provider: Vega Pickard, JING)1450 (Given - Provider: Denice Lee RN)2201 (Given - Provider: Ladarius Donato, JING) 0745 (Given - Provider: Denice Lee, JING)1430 (Given - Provider: Denice Lee RN) clindamycin [...] Minutes 194 (New Bag - Provider: Tarah Resendiz, JING) 249 (New Bag - Provider: Tarah Resendiz RN) docusate sodium (COLACE) capsule 100 mg 100 mg, oral, TWICE A DAY, First dose on Thu02/02/24 at 1300, Until Discontinued, Post-Op 1528 (Given - Provider: Elsa Laguna, RN)1948 (Given - Provider: Tarah Resendiz RN) 0915 (Given - Provider: Vega Pickard, JING)1950 (Given - Provider: Ladarius Donato, JING) 0744 (Given - Provider: Denice Lee, JING) gabapentin (NEURONTIN) capsule 600 mg (COMPLETED) 600 mg, oral, ONCE, 1 dose, On Thu02/02/24 at 0900, Pre-Op 0927 (Given - Provider: Faith Ellis RN) oxyCODONE (oxyCONTIN) extended release tablet 12 HR 10 mg (COMPLETED) 10 mg, oral, ONCE, 1 dose, On Thu02/02/24 at 0900, Pre-Op 0927 (Given - Provider: Faith Ellis RN) tranexamic [...] SURGICAL PAIN 1301 (Given - Provider: Yobani Curiel, JING)1308 (Given - Provider: Yobani Curiel, JING) glucagon, human recombinant (Glucagen) injection (conc: 1 mg/mL) 1 mg 1 mg, IntraMUSCULAR, EVERY 15 MINUTES NEEDED, 2 doses, Starting on Thu02/02/24 at 1250, Until [place] 02/04/24 at 2327, Post-Op, for hypoglycemia HYDROmorphone (DILAUDID) [...] [place]ette 02/04/24 at 2327, Post-Op, muscle spasm 1549 (Given [...] Tarah Resendiz RN)1144 (Given - Provider: Denice Lee, JING)1536 (Given - Provider: Denice Lee RN)1951 (Given - Provider: Ladarius Donato RN) 0021 (Given - Provider: Clari Womack RN)0616 (Given - Provider: Clari Womack, RN)1249 (Given - Provider: Denice Lee RN) [...] area documented in this encounter Care Teams Color Weigher Relationship Specialty Start Date End Date Clinic, No Primary PCP - Primary Care Clinic 08/27/22 Unknown, NO ADDRESS/PHONE/FAX AFFILIATED PCP - General 11/25/23 documented as of this encounter
--- OUTSIDE RECORDS SUMMARY | 2024-03-18 06:08 | XMS_ITS ---
Author Organization [facility] Address [address] [place] [address] Care Team Providers Care Manager Supply Chain Name Role Phone Clinic, No Primary Unavailable Unavailable Unknown, Primary Care Provider Unavailabl e Transitional Care Management Status:Closed (Closed) Start date:02/04/2024 End date:02/05/2024 Overview Transitional Care Management (TCM) is a [facility] Program designed to decrease risk and increase continuity of care for patients after discharge. Continued Care and Services Coordination
--- OUTSIDE RECORDS SUMMARY | 2024-03-18 06:08 | XMS_ITS | Encounter Summary ---
Author Organization [facility] Address [address] [place] [address] Care Team Providers Care Investment Officer Name Role Phone Clinic, No Primary Unavailable Unavailable Unknown, Primary Care Provider Unavailabl e Reason for Visit * Reason Comments Post op check Lumbar Spine Encounter Details Date Type Department Care Team (Late st Contact Info) Description 02/17/2024 1:15 PM MANAGER WASTEWATER Office Visit [facility] (an affiliate of [facility]) [address] [place] [phone] Bhavesh Mckay PA-C [address] [place], [place] [id number] S/P hardware removal (Primary Dx) Social History Tobacco Use Types Packs/Day Years Used Date Smoking Tobacco: Never Smokeless Tobacco: Never Tobacco Cessation:Counseling Given: No Alcohol Use Standard Drinks/Week Comments Yes 0 (1 standard drink = 0.6 oz pur e alcohol) beer socially C Utilities Answer Date Recorded In the past 12 months has e [employer], gas, oil, or water [employer] threatened to shut off services in your [...] were you homeless or living in a group home (including now)? No 02/02/2024 Sex and Gender [...] 95.3 kg (210 lb) 02/17/2024 1:40 PM MANAGER WASTEWATER Height 176.5 cm (5' 9.5) 02/17/2024 1:40 PM MANAGER WASTEWATER Body Mass Index 30.57 02/17/2024 1:40 PM MANAGER WASTEWATER documented in this encounter Progress Notes * Bhavesh Mckay PA-C - 02/17/2024 1:15 PM CST SUBJECTIVE: HPI: Virgilio Jackson, a very pleasant 63 y.o. male, is here today for a postoperative recheck. We are now2 weeks status post Hardware Removal L3- Pelvis Bilateral With Exception Of S1 Screw - Bilateral (DOS: 02/02/2024) performed by Dr. Benny Dalton. Patient presents for his initial post-operative follow up appointment. Today, the patient reports tolerable lower back pain. Unfortunately the seemingly R Si screw could not be removed. This is likely because it was too well embedded in the bone. Patient denies improvement in his symptoms based upon the current surgery. He understands that it is early. Updated wound care and activity precautions. Follow up as needed. Barring a new issue or decline in progress, patient will graduate from our care at this time. Review of Systems: No changes to the patient's ROS. OBJECTIVE: Physical Examination: Shows a healthy 63 y.o.-year-old man. Patient is cooperative and polite throughout the interview. Inspection of the surgical wounds shows that incisions are healing well. No signs of erythema, warmth, swelling or drainage. Can palpate the remaining screw. Imaging & Other Tests: The patient did not have updated postoperative imaging prior to this appointment. ASSESSMENT AND PLAN: Diagnosis/Assessment: 1. 63 y.o.-year-old man 15 days status post Hardware Removal L3- Pelvis Bilateral With Exception OfS1 Screw - Bilateral (DOS: 02/02/2024). Treatment plan: Updated wound care and activity precautions. Follow up as needed. Barring a new issue or decline inprogress, patient will graduate from our care at this time. At the end of our visit Virgilio Jackson understands the current diagnosis and future treatment plan,and questions were answered satisfactorily. I did ask that if there are any change for the worse ofsymptoms, or if there are any other questions or concerns otherwise, that they please call back to the office; understanding of that was expressed. Today???s visit was 21 minutes in length. Encountertime spent includes: chart review, reading advanced imaging, interviewing the patient, documenting the visit, and communicating with the care team. Billing is based upon the timeline since surgery. Bhavesh Mckay PA-C, [facility], 02/17/24 [facility] GER WASTEWATER * Gunnar Gould - 02/17/2024 1:15 PM CST Images from the original note were not included. Virgilio Jackson 63M [employer]ine [employer] Date of : 1960 Recent Address: [address] [place] [id number] View Linked Records (1) Other Tools/Metrics Report Criteria First Name: Virgilio Last Name: Manuel : 1960 Linked Records ? Name: Virgilio Jackson : 1960 ID: [id number] Gender: Male Address: [address] [place], [place] [phone] Report generated on 02/16/2024. Report Date Range: 02/16/2023 - 02/16/2024 PDF ReportExportState Indicators (0) Details RX Summary Summary Total Prescriptions 1 Total Private Pay 0 Total Prescribers 1 Total Pharmacies 1 Narcotics (excluding Buprenorphine) Current MME/day 0.00 30 Day Avg MME/day 9.00 Current Qty 0 Buprenorphine Current mg/day 0.00 30 Day Avg mg/day 0.00 Current Qty 0 UNINTENTIONAL OVERDOSE RISK SCORE MODEL Caution/Important Reminder: Information for Healthcare Professionals [id number] NARX SCORES NARCOTICS 170 ACTIVE RX 0 SEDATIVES 080 ACTIVE RX 0 STIMULANTS 000 ACTIVE RX 0 [place] CONTRIBUTING FACTORS TO OVERDOSE RISK SCORE MODEL Greater than six dispensations No Benzo - Narcotics overlap 0 Days Number of high risk scripts 0 Number of pharmacies where narcotics/sedatives/stimulants filled 1 Total days supply of short-acting drugs 3 Prescriptions Total: 1 Private Pay: 0 Showing 1 Item View 1 of 1 Filled Written Sold ID Drug QTY Days Prescriber RX # Dispenser Refill Daily Dose* Pymt Type STEEL DETAILER 02/04/2024 02/04/2024 1 Oxycodone Hcl (Ir) 5 Mg Tablet 36.00 3 Al Edw [id number] 01 Abbi (1997) 0/0 90.00 MME Medicare [place] Providers Total: 1 Showing 1 Item View 1 of 1 Name Address [facility] Zipcode Phone Monicadavie Mei [address] [facility] [address] Showing 1 Item View 1 of 1 Pharmacies Total: 1 Showing 1 Item View 1 of 1 Name Address City State Zipcode Phone [facility] [phone] [place] [address] As a proxy delegate, I have queried the [place] and/or [place] Prescription Monitoring Program for this patient and provided the clinician with the above information for the preceding 12 months. Gnunar Gould CMA GER WASTEWATER documented in this encounter Plan of Treatment Not on file documented as of this encounter Visit Diagnoses Diagnosis S/P hardware removal- Primary documented in this encounter Care Teams Investment Officer Relationship Specialty Start Date End Date Clinic, No Primary PCP - Primary Care Clinic 08/27/22 Unknown, NO ADDRESS/PHONE/FAX AFFILIATED PCP - General 11/25/23 documented as of this encounter
--- OUTSIDE RECORDS SUMMARY | 2024-03-18 06:08 | XMS_ITS | Encounter Summary ---
Author Organization [facility] Address [address] [place] [address] Care Team Providers Care Athletic Team Physician Name Role Phone Clinic, No Primary Unavailable Unavailable Unknown, Primary Care Provider Unavailabl e Encounter Details Date Type Department Care Team (Latest Contact Info) Description 02/17/2024 Travel Social History Tobacco Use Types Packs/Day Years Used Date Smoking Tobacco: Never Smokeless Tobacco: Never Alcohol Use Standard Drinks/Week Comments Yes 0 (1 standard drink = 0.6 oz pur e alcohol) beer socially [employer] Utilities Answer Date Recorded In the past [...] any time in the past 12 m [facility], were you homeless or living in [...] on filedocumented in this encounter Care Teams Athletic Team Physician Relationship Specialty Start Date End Date Clinic, No Primary PCP - Primary Care Clinic 08/27/22 Unknown, NO ADDRESS/PHONE/FAX AFFILIATED PCP - General 11/25/23 documented as of this encounter
--- OUTSIDE RECORDS SUMMARY | 2024-03-18 06:08 | XMS_ITS | Encounter Summary ---
Author Organization [facility] Address [address] [place] [address] Care Team Providers Care Brim Stretcher Name Role Phone Clinic, No Primary Unavailable Unavailable Unknown, Primary Care Provider Unavailabl e Encounter Details Date Type Department Care Team (Latest Contact Info) Description 01/28/2024 Travel Social History Tobacco Use Types Packs/Day [...] on filedocumented in this encounter Care Teams Brim Stretcher Relationship Specialty Start Date End Date Clinic, No Primary PCP - Primary Care Clinic 08/27/22 Md Ramy NO ADDRESS/PHONE/FAX AFFILIATED PCP - General 11/25/23 documented as of this encounter
--- OUTSIDE RECORDS SUMMARY | 2024-03-18 06:08 | XMS_ITS | Encounter Summary ---
Author Organization [facility] Address [address] [place] [address] Care Team Providers Care Recovery Engineer Name Role Phone Clinic, No Primary Unavailable Unavailable Unknown, Primary Care Provider Unavailabl e Encounter Details Date Type Department Care Team (Latest Contact Info) Description 12/09/2023 Travel Social History Tobacco Use Types Packs/Day [...] on filedocumented in this encounter Care Teams Recovery Engineer Relationship Specialty Start Date End Date Clinic, No Primary PCP - Primary Care Clinic 08/27/22 Md Ramy NO ADDRESS/PHONE/FAX AFFILIATED PCP - General 11/25/23 documented as of this encounter
[2024-03-18] MEDS: OXYCODONE (CR) 10 MG TAB.ER.12H PO (06:20)
[2024-03-18] MEDS: SODIUM CHLORIDE 0.9 % (FLUSH) 10 ML SYRINGE IVF ×2 (06:33→12:54)
[2024-03-18] MEDS: fentaNYL 100 MCG/2 ML inj IVP (07:07)
[2024-03-18] MEDS: MIDAZOLAM HCL 1 MG/ML inj IVP (07:07)
[2024-03-18] MEDS: LACTATED RINGERS 1000 ML 1,000 ML 100 ML IV (07:10)
--- NOTE | 2024-03-18 07:15 | CRLHL7_ITS ---
For Patients: As a result of the Cures Act, medical imaging exams and procedure reports are released immediately into your electronic medical record. You may view this report before your referring provider. If you have questions, please contact your health care provider. HISTORY: Left total hip arthroplasty. TECHNIQUE: Intraoperative with 1 spot film acquired. COMPARISON: 02/23/2024. FINDINGS: Spot film demonstrates a left total hip arthroplasty which appears intact on this single view. Dictated by Jason Gil MD @ 03/21/2024 6:26:48 AM (Electronically Signed)
--- NOTE | 2024-03-18 07:16 | SUR.PREOP ---
TIME?OUT:?0707 PT/humphrey goel RN/farnaz haile MDA?VERIFICATION?OF?SURGICAL?SITE,?PROCEDURE,?AND?CONSENT OBTAINED?PRIOR?TO?INVASIVE?PROCEDURE.
--- NOTE | 2024-03-18 07:17 | W.PM.H&PU ---
History & Physical Update History & Physical Update H&P Reviewed and patient assessed: No changes noted
[2024-03-18] MEDS: CEFAZOLIN 2 GM in 0.9 % SODIUM CHLORIDE Mini-bag 100 ML IVPB (07:35)
[2024-03-18] MEDS: TRANEXAMIC ACID 100 MG/ML INJ 1000 MG IV (07:39)
--- NOTE | 2024-03-18 07:57 | W.PM.NB ---
Nerve Block Nerve Block Time Seen by Provider: 07:11 Date Seen: 03/18/24 Type of block requested by surgeon for post-operative analgesia: MARILEE/LFCN Side: left Time out performed: Yes Verification of patient name: Yes Verification of date of : Yes Site marking: site marked Name of person performing procedure: Christiano Continuous monitoring Was continuous monitoring of O2 sat, B/P, groundwater monitoring technician, recorded every 15 minutes?: Yes Procedure Checklist: sterile prep, needles and gloves Ultrasound guided. Images saved: Yes Medications given in 5ml increments after negative aspiration: Ropivicaine %: 0.5 mL: 30 Needle gauge: 20 Precedex (mcg): 25 Patient tolerated procedure well: Yes Additional comments: Needle noted below psoas tendon needle noted adjacent to LFCN Block Charges Block Charge (with Pro Fee): Other Periph Nerve Block Use of Ultrasound Machine for Block: Yes- US Guidance/pain block
--- NOTE | 2024-03-18 07:57 | W.ANESCHARGE ---
Anesthesia Charges Start Date/Time Anesthesia Start Date: 03/18/24 Anesthesia Start Time: 07:28 Stop Date/Time Anesthesia Stop Date: 03/18/24 Anesthesia Stop Time: 09:47
--- NOTE | 2024-03-18 09:12 | P.ORPRC_ITS ---
Procedure Note Date of procedure: 03/18/24 Procedure: PREOPERATIVE DIAGNOSIS: 1. Left hip osteoarthritis, severe, primary POSTOPERATIVE DIAGNOSIS: 1. Left hip osteoarthritis, severe, primary PROCEDURE: 1. Left total hip arthroplasty-anterior approach 2. 39015 - intraoperative fluoroscopy up to 1 hour. SURGEON: Herbert Melendez MD. CONTACT FINGER ASSEMBLER: VIC Chapa PA-C - Of note, a skilled animal care assistant was critical for this case to aid in patient positioning, tissue retraction, limb manipulation/positioning, dislocation/relocation, patient safety, and closure. ANESTHESIA: General endotracheal anesthetic EBL: 400 mL IMPLANTS: DePuy J&J uncemented total hip [place] cup size 56, hole eliminator, +4 neutral liner Actis stem, high offset, size 9 +1.5 mm ceramic 36 mm head. COMPLICATIONS: None evident INDICATIONS: The patient is a pleasant 63-year-old male who has experienced severe left hip pain and difficulty bearing weight. Workup included x-rays which revealed severe osteoarthrosis in the hip. Given the deformity, the dysfunction, and the pain, as well as the failure of nonoperative management, recommendation was made for surgery. FINDINGS: Full-thickness chondral loss diffusely throughout the femoral head and acetabulum. Osteophytes on the femoral head/neck junction and perimeter of the acetabulum. Large effusion upon entering the joint. DESCRIPTION OF PROCEDURE: Following a thorough discussion of risks, benefits, and alternatives consent was obtained and the left hip was marked. The patient was brought to the operating room and placed supine on the operating table. Induction of anesthesia was undertaken. 2 g IV Ancef and 1 g tranexamic acid was administered within 1 hr of incision preoperatively. Proper time-out was performed identifying proper patient, site, procedure. The operative extremity was prepped and draped in the appropriate sterile fashion using ChloraPrep after the patient was positioned on the [place] table with head in neutral alignment and all bony prominences well padded. C-arm fluoroscopic imaging was utilized to confirm proper pelvis rotation and position, and to get true AP films of both the contralateral left, and the affected left hip. This is for comparison. A longitudinal incision was made starting approximately 1 cm distal to the ASIS, and 3-4 cm lateral. The incision was extended distally aiming toward the lateral border the patella. Sharp incision through skin and bovie cautery through the subcutaneous tissue allowed identification of the TFL fascia. This was sharply divided, and the fascia bluntly released from the muscle fibers as we dissected medial. Upon coming to the medial border, we were able to retract the TFL laterally, and penetrated the deeper fascia and identify the crossing circumflex vessels. These were ligated/cauterized. The rectus was elevated from the capsule, and retractors placed laterally and medially along the femoral neck to help with visualization of the capsule. We then performed an inverted T capsulotomy. The capsule was tagged for later repair. Retractors were placed inside the capsule. The femoral neck was visualized after releasing medially down to the lesser trochanter, along the sad dle laterally, and up onto the acetabulum. The femoral neck cut was made in line with our preoperative templating. The head was removed in a single piece, and sized. We turned our attention to acetabular preparation. Initially, the labrum was resected from around the perimeter, the pulvinar was excised, allowing us to visualize the false wall. We started the reaming with a 43 mm reamer. This was medialized down to the true wall. We then enlarged our reamers sequentially up to one size less than the selected cup size. We trialed at the same size and found it to have an excellent fit. The selected cup was then opened, inserted, and impacted in line with the goal of 40-45? of abduction, and 20-25? of anteversion. This was confirmed on C-arm fluoroscopic imaging to be in the appropriate/goal position. Once the cup was placed we placed a hole eliminator and a liner consistent with preop planning. Attention was turned to the femoral preparation. The limb was extended, externally rotated, and adducted. The posteromedial capsule was released, as retractors were placed allowing excellent access to the proximal femur. Initially a box chipper was followed by canal finder followed by various broaches. We broached sequentially up to size noted above, found it to have excellent rotational control, and trialing various heads and necks, revealed that appropriate neck offset, and the above noted head size provided the greatest stability, and taoist of length, and offset. C-arm fluoroscopic imaging confirmed position of the stem, as well as leg lengths, which were compared with the pre procedure all fluoroscopic images. Trial implants were removed, the real femoral stem inserted, as was the ceramic head. After reducing, the leg was placed through range of motion and stability was confirmed anterior, posterior, and lateral. A 3 min Betadine soak was then performed, and thorough irrigation with normal saline followed. Closure of the capsule was performed with #1 PDS. Bleeding was confirmed to be controlled at this stage, and the TFL fascia was closed with #0 strata fix. Subcutaneous, and subcuticular closure was performed with 2-0 Vicryl and 4-0 Monocryl, resp ectively. Dressings were applied, and the patient was awoken from anesthesia and transferred the PACU in stable condition. A skilled animal care assistant was critical for this case to aid in patient positioning, tissue retraction, proximal femur exposure, limb manipulation/positioning, dislocation/relocation, patient safety, and closure. PLAN: 1. Weight bear as tolerated operative extremity. 2. 23 hr perioperative antibiotics. 3. Ice. 4. PT/OT consults for ambulation assistance/mobility education. 5. Social work consult for discharge planning. 6. DVT prophylaxis with at SCDs and Xarelto x5 days followed by aspirin for a total of 1 month..
--- NOTE | 2024-03-18 09:37 | CRLHL7_ITS ---
For Patients: As a result of the Cures Act, medical imaging exams and procedure reports are released immediately into your electronic medical record. You may view this report before your referring provider. If you have questions, please contact your health care provider. INDICATION: Post left hip arthroplasty. TECHNIQUE: AP view of the pelvis as well as AP and lateral projections of the left hip. COMPARISON: : 02/23/2024 FINDINGS: Immediate postop change of left total hip arthroplasty. Prosthetic components well-seated and aligned. Mild right hip osteoarthritis. IMPRESSION: : Immediate postop left total hip arthroplasty without evidence of complication. Dictated by Fred Madera MD @ 03/21/2024 8:24:34 AM (Electronically Signed)
--- NOTE | 2024-03-18 09:53 | W.ANESCHARGE ---
Anesthesia Charges Start Date/Time Anesthesia Start Date: 03/18/24 Anesthesia Start Time: 07:28 Stop Date/Time Anesthesia Stop Date: 03/18/24 Anesthesia Stop Time: 09:47
[2024-03-18] MEDS: fentaNYL 100 MCG/2 ML inj 50 MCG IVP (10:11)
[2024-03-18] MEDS: OXYCODONE 5 MG TABLET PO (10:42)
[2024-03-18] MEDS: HYDROmorphone 0.5 mg/0.5 ml inj IVP (11:23)
[2024-03-18] MEDS: ACETAMINOPHEN 325 MG TABLET PO (11:28)
[2024-03-18] MEDS: hydrOXYzine pamoate 25 MG CAPSULE PO (11:29)
[2024-03-18] MEDS: METOCLOPRAMIDE HCL 5 MG/ML INJ 10 MG IVP (12:54)
--- NOTE | 2024-03-18 13:40 | SUR.PHASEII ---
PATIENT VOIDED AT 1330. PATIENT AMBULATED WELL WITH WALKER TO BATHROOM WITH STANDBY ASSIST.
--- NOTE | 2024-03-18 14:43 | SUR.PHASEII ---
Patient returned to Phase II from OT and PT - passed both. Patient and verbalized they had reviewed discharge instructions with prior Phase II RN and had no questions. Patient and verbalized readiness to be discharged.
--- NOTE | 2024-03-18 14:49 | SUR.PHASEII ---
Dr. Melendez rounded on patient prior to discharge.
== END 2024-03-18 14:47 | disposition home or self-care (01) ==
LOC: OR 06:05
PROVIDERS: PCP Family Medicine; Visit Provider Orthopaedic Surgery Sports Medicine
PROC: (CPT 27130; principal; 2024-03-18 07:15)
DX: M16.12 Unilateral primary osteoarthritis, left hip (principal); G89.18 Other acute postprocedural pain; I48.91 Unspecified atrial fibrillation; I10 Essential (primary) hypertension
CPT/HCPCS: 27130; 01210; 01214; 36415; 64450; 73501; 76000; 76942; 86850; 86900; 86901; 97110; 97116; 97161; 97165; A9270; C1776; J0330; J0690; J1171; J2250; J2405; J2704; J2710; J2765; J2795; J3010; J3490; J7120